=== PATIENT | female | born 1950 | race Caucasian/White ===

== ENCOUNTER 2016-09-30 12:40 | Inpatient (IN) | payer MEDICARE ==
[~2016-09-30] VITALS: Ht 168.9 cm; Wt 120.4 kg
[~2016-09-30 12:40] MED LIST changes: -BLOOD GLUCOSE T1 TES; -GETGO ROLLING W1 MI1; -LEVA750T PO; -OXYGENTANK NAS.CANULA; -PERC5TAB12 PO; -PRED10 PO; -PRED20 PO; -PRED5TAB PO; -XARE15TA PO; -XARE20TA PO; -ZOFR4TAB PO
--- NOTE | 2016-10-01 17:49 | MH ---
cc: ELDER WONG MD, ROHIT K. M.D. DATE OF ADMISSION 10/02/2016 ADMISSION DIAGNOSIS Cervical spinal stenosis. HISTORY OF PRESENT ILLNESS This is a 66-year-old female who presented to us for evaluation of neck pain radiating into the right shoulder for the last 6 months. She states she has numbness and pain in the right upper extremity on the inside of her arm and forearm. She denies any left upper extremity radiating pain. She has unsteady gait she states for years but worse over the last 6 months. She states she falls frequently from being unsteady. She has urinary frequency at night and has to urinate every hour. She has not had any physical therapy or pain management. She states her right arm is weaker than the left but both are weak. She has a history of anterior C4-C6 diskectomy with fusion and plate placement about 15 years ago. PAST MEDICAL HISTORY Significant for: 1. Diabetes mellitus. 2. Hypertension. 3. Gastroesophageal reflux disease. 4. Chronic obstructive pulmonary disease. 5. Ovarian cancer. PAST SURGICAL HISTORY 1. She had tonsillectomy in . 2. Abdominal exploration surgery 1965. 3. Two section in 1974, 1976. 4. Cholecystectomy 1975. 5. Benign tumor removal from the left side of her back/arm in 1985. 6. Carpal tunnel surgery in bilaterally. 7. Hysterectomy . 8. Ovarian cancer tumor removal in 2011. 9. A port in her upper chest in 2011. 10. Cervical fusion. CURRENT MEDICATIONS 1. She takes metformin 1000 mg b.i.d. 2. Ibuprofen 800 milligrams, this was placed on hold prior to surgical intervention. 3. Lisinopril 20 mg b.i.d. 4. Amlodipine 10 mg daily. 5. Fluoxetine 40 milligrams daily. 6. Isosorbide ER 60 mg daily. 7. Carvedilol 12.5 mg b.i.d. 8. Nexium 20 mg daily. 9. Lantus insulin 90 units in the morning, 70 units in the afternoon. 10. Humalog sliding scale insulin. 11. Ferrous sulfate 325 mg b.i.d. 12. Ventolin inhaler two puffs every four hours. 13. Ipratropium bromide 0.5 mg. 14. Albuterol sulfate 3 mg four times a day. 15. Potassium 550 mg daily. 16. Magnesium 250 mg daily. 17. Calcium 5 mg with Vitamin D daily. ALLERGIES NO KNOWN DRUG ALLERGIES. 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 She has two children. She lives alone. She does not smoke. She quit in 2006. She does not drink alcohol. REVIEW OF SYSTEMS CONSTITUTIONAL: She denies any fever or chills currently. EARS, NOSE, AND THROAT: No pharyngitis or exudate or bloody drainage from her nose. CARDIOVASCULAR: She denies any current chest pain. RESPIRATORY: Positive for shortness of breath related to her chronic obstructive pulmonary disease. GENITOURINARY: No urgency or dysuria. MUSCULOSKELETAL: Positive for neck and low back pain. SKIN: No rashes or pruritus. NEUROLOGIC: No difficulty with speech. Positive for some difficulty with memory. GASTROINTESTINAL: Positive for diarrhea and constipation. PSYCHIATRIC: Positive for anxiety and depression symptoms. FAMILY HISTORY Her mother is at 80 years old. Had heart and lung failure. Her father at 68 years old, had lung cancer. Her sister is at 42, had colon and ovarian cancer. Her other sister is at 70 from lung cancer. She has another sister who is at 65 from colon and ovarian cancer. She has a brother who is in his 70s and another brother who is in his 70s also. PHYSICAL EXAMINATION HEAD: Normocephalic, atraumatic. NECK: Supple. No carotid bruits heard on auscultation. LUNGS: Clear to auscultation bilaterally. HEART: Regular rate and rhythm. Normal S1-S2. ABDOMEN: Soft and nontender. Positive bowel sounds. SKIN: Reveals no cyanosis or erythema. MUSCULOSKELETAL: She has 3/5 strength in the upper extremities. She has a spastic gait and ambulates with a cane. NEUROLOGIC: She is awake and alert, oriented. Cranial nerves II through XII appear grossly intact. Speech is fluent. Comprehension is good. Sensation is intact in the extremities but she complains of subjective numbness in the right upper extremity. There is no Wan reflexes. Reflexes are very diminished in the lower extremities. IMAGING Data reviewed, reviewed MRI of the cervical spine from July 02, 2016 which reveals a large disk herniation with osteophytes at the C3 / C4 level with spinal cord compression. There is also plate in place from C4-C6 with the spinal canal decompressed. Cervical x-ray from January 08, [address] from C4-C6 with allograft and the interbody fusion at C5-C6 but there is no interbody fusion at C4-C5 with a C4 plate and screws appear to have partially pulled out. IMPRESSION A 65-year-old female with a progressive cervical myelopathy with weakness and unsteadiness in her gait as well as neck pain with radiation to the shoulders from a C3-C4 disk osteophyte complex with spinal cord compression. She also has remote history of C4 to C6 anterior cervical fusion with plate placement and it appears the fusion has failed at the C4 / C5 level with loosening of the C4 screws. PLAN We have discussed the treatment options and we have recommended anterior C3-C4 microdiskectomy and fusion with removal of the C4-C6 plate along with exploration of her fusion and possible refusion at the C4-C5 level. The procedure as well as the risks, benefit, alternative and recovery time were explained in great detail with the patient. We have discussed the risks involved with surgery which include but not limited to bleeding, infection, muscle weakness, voice hoarseness, difficulty swallowing, heart attack, stroke, blood clots, non fusion, scar tissue formation, vascular injury with associated stroke, droopy eye as well as cardiopulmonary complications given her coronary artery disease as well as COPD and diabetes. We have obtained cardiac and medical clearance and she is requesting that we proceed with surgical intervention understanding the procedure as well as risks involved and she was therefore scheduled accordingly. DICTATED BY: Jay Spicer PA-C MD DANI Tolentino/BILLIE /4:52 PM /5:16 PM
[2016-10-02] MEDS ORDERED: SODIUM CHLORID 0.9% 500 ML IV PRN (06:15)
[2016-10-02] MEDS ORDERED: POVIDONE IODINE 5% (ANTISEPSIS KIT) 4 APPLICATIONS EACH NARE PRN (06:15)
[2016-10-02] MEDS ORDERED: LACTATED RINGER'S 1000 ML IV PRN (06:15)
[2016-10-02] MEDS ORDERED: INSULIN HUMAN REGULAR 1,000 UNITS/10 ML VIAL SQ PRN (06:15)
[2016-10-02] MEDS ORDERED: CHLORHEXIDINE GLUCONATE 2 % 1 PACK (2 CLOTHS) TOPICAL PRN (06:15)
[2016-10-02] MEDS ORDERED: VANCOMYCIN HCL 1000 MG ON-CALL/NS 250 ML IV SCH ×2 (06:15)
[2016-10-02] MEDS ORDERED: METOPROLOL TARTRATE 25 MG TAB PO PRN (06:15)
[2016-10-02] MEDS ORDERED: SODIUM CHLOR 0.9% 1000 ML INJ 1,000 ML IV SCH (06:15)
[2016-10-02 07:03] VITALS: BP 124/60; PULSE 66; RESP 22; TEMP 98; O2SAT 98
[2016-10-02] MEDS ORDERED: THROMBIN (TOPICAL) 5,000 UNIT VIAL ONE ×2 (07:32→11:21)
[2016-10-02] MEDS ORDERED: VANCOMYCIN HCL 1000 MG VIAL ONE (07:32)
[2016-10-02] MEDS ORDERED: GELFOAM SIZE 100 ONE ×2 (07:33→11:22)
[2016-10-02] MEDS ORDERED: BUPIVACAINE/EPINEPHRINE 0.5% PF 30 ML VIAL ONE (07:33)
[2016-10-02] MEDS ORDERED: RESP: ALBUTEROL 2.5 MG/3 ML NEB (SCH) ONE (08:07)
[2016-10-02] MEDS ORDERED: DEXAMETHASONE SOD PHOS 4 MG/ML VIAL ONE (08:19)
[2016-10-02] MEDS ORDERED: ACETAMINOPHEN 1000 MG/100 ML VIAL IV ONE (08:19)
[2016-10-02] MEDS ORDERED: MIDAZOLAM HCL 2 MG/2 ML VIAL ONE (08:19)
[2016-10-02] MEDS ORDERED: FAMOTIDINE 20 MG/2 ML VIAL ONE (08:19)
[2016-10-02] MEDS ORDERED: SODIUM CHLORID 0.9% 500 ML INJ 500 ML IV ONE (12:00)
[2016-10-02] MEDS ORDERED: LACTATED RINGER'S 1000 ML INJ 3,000 ML IV ONE (12:00)
[2016-10-02] MEDS ORDERED: ePHEDrine/NS 25 MG/5 ML SYR IV ONE (12:00)
[2016-10-02] MEDS ORDERED: PROPOFOL 200 MG/20 ML AMP IV ONE (12:00)
[2016-10-02] MEDS ORDERED: ONDANSETRON HCL 4 MG/2 ML VIAL IV PUSH ONE (12:00)
[2016-10-02] MEDS ORDERED: NEOSTIGMINE 3 MG/3 ML SYR IV ONE (12:00)
[2016-10-02] MEDS ORDERED: ALBUTEROL SULFATE 90 MCG/ACT HFA 18 GM INHALER INH PRN (12:30)
[2016-10-02] MEDS ORDERED: NS + KCL 20 MEQ INJ 1,000 ML IV SCH (12:31)
[2016-10-02] MEDS ORDERED: fentaNYL CITRATE 250 MCG/5 ML AMP ONE ×2 (12:36→12:37)
[2016-10-02] MEDS ORDERED: cloNIDine HCL 0.1 MG TAB PO PRN (12:45)
[2016-10-02] MEDS ORDERED: MAGNESIUM HYDROXIDE SUSP 30 ML CUP PO PRN (12:45)
[2016-10-02] MEDS ORDERED: CYCLOBENZAPRINE HCL 10 MG TAB PO PRN (12:45)
[2016-10-02] MEDS ORDERED: PROCHLORPERAZINE INJ 10 MG/2 ML VIAL IV PUSH PRN (12:45)
[2016-10-02] MEDS ORDERED: ALUMINUM/MAGNESIUM/SIMETH 30 ML CUP PO PRN (12:45)
[2016-10-02] MEDS ORDERED: ZOLPIDEM TARTRATE 5 MG TAB PO PRN (12:45)
[2016-10-02] MEDS ORDERED: DEXTROSE 50% IN WATER 50 ML VIAL(D50) IV PUSH PRN (12:45)
[2016-10-02] MEDS ORDERED: MORPHINE SULFATE 4 MG/ML INJ IV PRN (12:45)
[2016-10-02] MEDS ORDERED: ONDANSETRON HCL 4 MG/2 ML VIAL IV PRN (12:45)
[2016-10-02] MEDS ORDERED: diphenhydrAMINE HCL 50 MG/ML VIAL IV PRN (12:45)
[2016-10-02] MEDS ORDERED: NALOXONE HCL 0.4 MG/ML AMP IV PRN (12:45)
[2016-10-02] MEDS ORDERED: ACETAMINOPHEN 325 MG TAB PO PRN (12:45)
[2016-10-02] MEDS ORDERED: ACETAMINOPHEN/HYDROcodone 325 MG/10 MG TAB PO PRN (12:45)
[2016-10-02] MEDS ORDERED: SODIUM CHLORIDE 0.9% FLUSH 10 ML FLUSH IV FLUSH PRN (12:45)
[2016-10-02] MEDS ORDERED: GLUCAGON 1 MG/ML VIAL OTHER PRN (12:45)
[2016-10-02] MEDS ORDERED: MENTHOL LOZENGE BUCCAL PRN (12:45)
--- NOTE | 2016-10-02 12:46 | PD.OP ---
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 endotracheal by Jhony Gibson Surgeon: Alexandre Lares M.D. Welder Fitter Apprentice(s): Yeni Lea Operation and Findings: Following administration of general endotracheal anesthesia with the neck maintained neutral position in a Grayling collar, the patient received a gram of vancomycin and Decadron 10 mg intravenously. Sequential compression devices and a Merino catheter were placed in supine position on a Omar table and all pressure points adequately padded. The head secured in a donut and anterior cervical region then shaved and prepped with Chloraprep and sterilely draped with Ioban along with the usual sterile draping. A transverse skin incision on the left side of the neck was then made after infiltrating the skin with 0.5% Marcaine with epinephrine solution extending down through the platysma. At the anterior border of the sternocleidomastoid further dissection was undertaken developing a plane between the carotid sheath laterally and the trachea esophagus medially. The prevertebral fascia was exposed and dissected out. The medial attachments of the longus colli muscles were detached and a self- retaining retractor used for exposure. The C3-4 disc space was localized with a marking the disc space and using lateral fluoroscopy. The C4 to C6 anterior cervical plate was identified with the right C4 screw partially pulled out. The screws were removed along with the plate and there was solid fusion noted at the C5-6 interbody but no fusion noted at the C4-5 interbody with scar tissue and endplate cartilaginous remnants present. Nubieber distraction screws 14 mm length were placed one in the C3 and one in the C5 body interbody distraction and exposure. There was significant disc degeneration with disc height collapse and anterior osteophytes noted at the C3-4 level and the osteophytes were resected with a Leksell and annulus incised with a 15 blade and further dissection undertaken using microtechnique with microscope magnification. Diskectomy was undertaken with pituitaries and the endplates were also decorticated with curettes and drill bit. And more posteriorly there was disk osteophyte complex compressing the thecal sac along with a significant uncovertebral joint hypertrophy with foraminal stenosis which was decompressed along with removal of the posterior longitudinal ligaments at both levels. The foramen was decompressed bilaterally using a Kerrison's and palpation with a nerve hook, the exiting nerve roots were felt to be free. I also decorticated the endplates at the C4-5 level. The area was then copiously irrigated. I then placed a Peek cage packed with local autograft bone on at the C3-4 interspace and another one at the C4-5 interspace under fluoroscopy guidance. Nubieber distraction pins were removed and the holes plugged with Gelfoam for hemostasis. In order to facilitate the fusion and provide stabilization, a Precision spine cervical plate was then placed with two 14 mm variable angle screws in the C3 body, one in the C4 body, and two 14 mm fixed angle screws in the C5 body. The plate screw locking mechanism was then engaged. AP and lateral fluoroscopy confirmed good placement of the construct and the retractor was then removed. Muscular bleeding points were cauterized with bipolar cautery and Gelfoam was then also used for hemostasis which was removed. The platysma was then approximated using 3-0 Vicryl interrupted stitches and 3-0 Vicryl subcuticular stitch also placed in an interrupted fashion, and final skin closure was with Mastisol and Steri-Strips. Sterile dressing was then applied. The neck immobilized in a Grayling J collar. The patient was then extubated and taken to the recovery room. There are no intraoperative complications and all sponge and needle counts were correct at the end of procedure. Estimated blood loss was about 100 cc. The patient did undergo intraoperative neurologic monitoring which remained stable throughout the surgery. Alexandre Lares MD Oct 02, 2016 12:46
[2016-10-02] MEDS ORDERED: NS + KCL 20 MEQ INJ 1,000 ML ONE (12:57)
[2016-10-02] MEDS ORDERED: IPRATROPIUM BROMIDE 17 MCG/ACT 12.9 GM INHALER INH SCH (13:00)
--- NOTE | 2016-10-02 14:07 | RADRPT ---
EXAM DATE/TIME: 10/02/2016 09:18 [facility] COMPARISON: No previous studies available for comparison. INDICATIONS : Post-op C3-C4-C5 anterior cervical fusion. MEDICAL HISTORY : None. SURGICAL HISTORY : None. ENCOUNTER: Initial ACUITY: 1 day PAIN SCORE: Non-responsive. LOCATION: neck FINDINGS: 3 intraoperative spot images demonstrate anterior fusion hardware C3-C5. CONCLUSION: Intraoperative spot images indicating anterior cervical fusion hardware. Casper Rowland MD on October 02, 2016 at 14:05 Board Certified Radiologist. This report was verified electronically.
--- NOTE | 2016-10-02 14:50 | PD.CONS ---
HPI Service Family Medicine Consult Requested By Dr. Lares Reason for Consult Managing chronic illness Primary Care Physician Rosario Queen MD History of Present Illness Ms. Sewell is a 66 year old female with multiple medical problems, including T2DM, CAD, COPD hypertension, asthma, and anxiety/depression, the family medicine FPTS is being consulted to help manage her chronic illnesses. She is postop day 0 for microdiscectomy and fusion of the C3 through 4 and repeat fusion of C4 through 5. She was evaluated in the PACU following her surgery and reports that she is doing well. Her only complaint was that her mouth was dry. Her neck was in a c-collar and she was declining any pain. Review of Systems ROS Limitations: Clinical Condition (status post surgery) Constitutional: COMPLAINS OF: Fatigue, Weight gain, DENIES: Fever, Weight loss , Dizziness, Change in appetite Endocrine: DENIES: Polydipsia, Polyuria Eyes: DENIES: Blurred vision, Diplopia, Eye pain Ears, nose, mouth, throat: COMPLAINS OF: Hoarseness, DENIES: Tinnitus, Throat pain, Running Nose Respiratory: DENIES: Cough, Wheezing, Sputum production Cardiovascular: DENIES: Chest pain, Syncope Gastrointestinal: DENIES: Abdominal pain, Nausea, Vomiting Musculoskeletal: COMPLAINS OF: Joint pain, Muscle aches, Stiffness, Back pain, Neck pain, DENIES: Joint Swelling Hematologic/lymphatic: DENIES: Bruising Neurologic: DENIES: Abnormal gait, Headache Psychiatric: DENIES: Anxiety, Confusion Past Family Social History Past Medical History - CAD ("several" MIs, stent x 1) - HTN - Hyperlipidemia - 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) - h/o clear cell ovarian cancer (diagnosed 2011, stage 1-C, s/p oophorectomy & chemotherapy) - Depression, anxiety - Osteoarthritis - h/o nephrolithiasis - Chronic anemia - Emphysema/COPD Past Surgical History - CAD ("several" MIs, stent x 1) - HTN - Hyperlipidemia - 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) - h/o clear cell ovarian cancer (diagnosed 2011, stage 1-C, s/p oophorectomy & chemotherapy) - Depression, anxiety - Osteoarthritis - h/o nephrolithiasis - Chronic anemia - Emphysema/COPD Reported Medications Reported Meds & Active Scripts Active Amlodipine (Amlodipine Besylate) 10 Mg Tab 10 Mg PO DAILY Lantus Solostar Pen Inj (Insulin Glargine) 300 Unit/3 Ml Pen 80 Units SQ DIRECTED take 80 units in the morning and 70 units at bedtime Carvedilol 12.5 Mg Tab 12.5 Mg PO BID Humalog Kwikpen Pen Inj (Insulin Lispro (Human) Inj) 300 Unit/3 Ml Pen 1 Units SQ DIRECTED Max dose at bedtime: 0 units; sugar <70 (0) units, sugar 150-199(2)units sugar 200-249 (4)units sugar 250-299 (7)units sugar 300-349 (10)units sugars>349 (12)units Fluoxetine (Fluoxetine HCl) 40 Mg Cap 40 Cap PO DAILY Atrovent HFA 12.9 GM Inh (Ipratropium [place]) 17 Mcg/Act Aer 2 Puff INH QID Duoneb (Ipratropium-Albuterol Neb) 0.5-2.5 Mg/3 Ml Neb 1 Nebule INH Q6HR NEB Walker with Front Wheels (Device) 1 Mis Mis 1 Ea .ROUTE DIRECTED Isosorbide Mononitrate ER (Isosorbide Mononitrate) 60 Mg Tab 60 Mg PO DAILY Reported Ventolin Hfa 18 GM Inh (Albuterol Sulfate) 90 Mcg/Act Aer 1 Puff INH Q4H PRN Ferrous Sulfate 325 Mg Tab 650 Mg PO DAILY Nexium (Esomeprazole DR) 20 Mg Capdr 20 Mg PO DAILY Lisinopril 20 Mg Tab 20 Mg PO BID Metformin (Metformin HCl) 1,000 Mg Tab 1,000 Mg PO BIDPC With meals Allergies: Coded Allergies: No Known Allergies (Verified , 10/02/16) Active Ordered Medications Current Medications Medications (Trade) Dose Ordered Sig/Bruce Route Start Time Stop Time Status Last Admin (NS 1000 ml Inj) 1,000 ml @ 30 mls/hr Q24H IV 10/02/16 06:15 (Ventolin Hfa Inh) 1 puff Q4H PRN INH 10/02/16 12:30 (Norvasc) 10 mg DAILY PO 10/03/16 09:00 (Coreg) 12.5 mg BID PO 10/02/16 21:00 (Ferrous Sulfate) 650 mg DAILY PO 10/03/16 09:00 (PROzac) 40 mg DAILY PO 10/03/16 09:00 (Atrovent Hfa Inh) 2 puff QID INH 10/02/16 13:00 UNV (Imdur) 60 mg DAILY PO 10/03/16 09:00 (Prinivil) 20 mg BID PO 10/02/16 21:00 (Protonix) 40 mg DAILY PO 10/03/16 09:00 (D50w (Vial) Inj) 25 ml UNSCH PRN IV PUSH 10/02/16 12:45 (Glucagon Inj) 1 mg UNSCH PRN OTHER 10/02/16 12:45 (Narcan Inj) 0.4 mg UNSCH PRN IV 10/02/16 12:45 (Benadryl Inj) 25 mg Q6H PRN IV 10/02/16 12:45 Polyethylene Glycol 17 gm 17 gm DAILY PO 10/03/16 09:00 (NS + KCl 20 Meq Inj) 1,000 ml @ 80 mls/hr [id number] IV 10/02/16 12:31 10/02/16 22:30 10/02/16 12:31 (NS Flush) 2 ml UNSCH PRN IV FLUSH 10/02/16 12:45 Sodium Chloride 2 ml 2 ml BID IV FLUSH 10/02/16 21:00 (Ancef Inj/NS Inj) 100 ml @ 200 mls/hr Q8H IV 10/02/16 14:00 10/03/16 06:29 10/02/16 14:00 (Colace) 100 mg BID PO 10/02/16 21:00 (Milk Of Magnesia Liq) 30 ml DAILY PRN PO 10/02/16 12:45 (Mag-Al Plus Susp Liq) 30 ml Q6H PRN PO 10/02/16 12:45 (Zofran Inj) 4 mg Q6H PRN IV 10/02/16 12:45 (Stewart 10-325 Mg) 1 tab Q4H PRN PO 10/02/16 12:45 (Stewart 10-325 Mg) 2 tab Q4H PRN PO 10/02/16 12:45 (Morphine Inj) 2 mg Q2H PRN IV 10/02/16 12:45 (Flexeril) 10 mg Q8H PRN PO 10/02/16 12:45 (Catapres) 0.1 mg Q6H PRN PO 10/02/16 12:45 (Tylenol) 650 mg Q4H PRN PO 10/02/16 12:45 (Clyde Ashlee) 1 lozenge UNSCH PRN BUCCAL 10/02/16 12:45 (Ambien) 5 mg HS PRN PO 10/02/16 12:45 (Compazine Inj) 10 mg Q6H PRN IV PUSH 10/02/16 12:45 Family History - Father: (lung cancer) - Mother: (pulmonary disease), CHF, DM - Sister 1: cervical, thyroid and lung cancer - Sister 2: ovarian and colon cancer - Brothers: lung cancer Social History - Tobacco: former (quit 2006, 2 PPD x 40 years) - EtOH: denies - Recreational drugs: denies - On disability. Physical Exam Vital Signs Vital Signs Date Time Temp Pulse Resp B/P Pulse Ox O2 Delivery O2 Flow Rate FiO2 10/02/16 12:30 98.5 70 20 121/63 93 Simple Mask 8 10/02/16 07:03 98.0 66 22 124/60 98 Physical Exam GENERAL: This is a well-nourished, well-developed patient, in no apparent distress. Neck in a c-collar SKIN: No rashes, ecchymoses or lesions. Cool and dry. HEAD: Atraumatic. Normocephalic. No temporal or scalp tenderness. EYES: Pupils equal round and reactive. Extraocular motions intact. No scleral icterus. No injection or drainage. ENT: Nose without bleeding, purulent drainage or septal hematoma. Throat without erythema, tonsillar hypertrophy or exudate. Uvula midline. Airway patent. NECK: Trachea midline. No JVD or lymphadenopathy. Supple, nontender, no meningeal signs. CARDIOVASCULAR: Regular rate and rhythm without murmurs, gallops, or rubs. RESPIRATORY: Clear to auscultation. Breath sounds equal bilaterally. No wheezes , rales, or rhonchi. GASTROINTESTINAL: Abdomen soft, non-tender, nondistended, obese. No hepato- splenomegaly difficult to confirm due to obesity, or palpable masses. No guarding. MUSCULOSKELETAL: Extremities without clubbing, cyanosis, or edema. No calf tenderness. Negative Homans sign bilaterally. NEUROLOGICAL: Awake and alert to name but not to date or place. Cranial nerves II through XII grossly intact. Motor and sensory grossly within normal limits. Normal speech. Imaging Last Impressions Cervical Spine X-Ray 10/02/16 0000 Signed Impressions: Service Date/Time: September 09:18 - CONCLUSION: Intraoperative spot images indicating anterior cervical fusion hardware. Casper Rowland MD Assessment and Plan Assessment and Plan Ms. Sewell is a 66 year old female with multiple medical problems, including T2DM, CAD, COPD hypertension, asthma, and anxiety/depression. Status post cervical discectomy and fusion. FPTS team consulted to help manage her chronic illnesses. Code Status Full code Discussed Condition With WDW: FPTS Team Problem List: (1) S/P cervical spinal fusion Status: Acute Plan: Deferred to neurosurgery team for management and pain control (2) Diabetes mellitus Status: Chronic Plan: Long-standing history of diabetes. * Accu-Cheks per protocol * Start Levemir 30 units twice a day will adjust dose as needed * High dose insulin sliding scale (3) COPD (chronic obstructive pulmonary disease) Status: Chronic Plan: Long-standing history of COPD * Continue albuterol * Continue Atrovent * Continue duo nebs (4) Hypertension Status: Chronic Plan: Long-standing history of hypertension * Continue home medication of lisinopril * Continue home medication of isosorbide mononitrate * Continue home medication of amlodipine * Continue home medications carvedilol (5) Anxiety and depression Status: Chronic Plan: Long-standing history of anxiety and depression * Continue home medication of fluoxetine Problem Qualifiers (1) Diabetes mellitus: Qualified Code: E11.8 - Type 2 diabetes mellitus with complication, with long- term current use of insulin Kapil Ortiz MD R2 Oct 02, 2016 14:50
[2016-10-02] MEDS: ACETAMINOPHEN/HYDROcodone 325 MG/10 MG TAB PO PRN ×2 (15:53→20:21)
[2016-10-02 16:00] VITALS: BP 157/75; PULSE 85; RESP 19; TEMP 98.7; O2SAT 93
[2016-10-02] MEDS ORDERED: RESP: ALBUTEROL 2.5 MG/3 ML NEB (PRN) NEB (16:00)
[2016-10-02] MEDS: INSULIN NovoLIN REGULAR SUPPLEMENTAL SCALE SQ SCH ×2 (17:53→21:00)
[2016-10-02 20:00] VITALS: BP 151/69; PULSE 78; RESP 16; TEMP 97.7; O2SAT 97
[2016-10-02] MEDS: RESP: ALBUTEROL 2.5 MG/IPRATROPIUM 0.5 MG NEB (SCH) INH (20:11)
[2016-10-02] MEDS: CARVEDILOL 12.5 MG TAB PO SCH (20:21)
[2016-10-02] MEDS: LISINOPRIL 20 MG TAB PO SCH (20:21)
[2016-10-02] MEDS: DOCUSATE SODIUM 100 MG CAP PO SCH (20:21)
[2016-10-02] MEDS: SODIUM CHLORIDE 0.9% FLUSH 10 ML FLUSH IV FLUSH SCH (20:21)
[2016-10-02] MEDS: INSULIN DETEMIR 100 UNITS/ML VIAL SQ SCH (23:58)
[2016-10-03] VITALS: BP 142/74; PULSE 69; RESP 16; TEMP 97.9; O2SAT 93
[2016-10-03] MEDS: ACETAMINOPHEN/HYDROcodone 325 MG/10 MG TAB PO PRN ×3 (00:07→12:49)
[2016-10-03 04:00] VITALS: BP 167/79; PULSE 72; RESP 17; TEMP 96.8; O2SAT 93
[2016-10-03] MEDS: INSULIN NovoLIN REGULAR SUPPLEMENTAL SCALE SQ SCH ×2 (07:00→11:00)
[2016-10-03] MEDS: RESP: ALBUTEROL 2.5 MG/IPRATROPIUM 0.5 MG NEB (SCH) INH (07:44)
[2016-10-03 08:00] VITALS: BP 178/78; PULSE 68; RESP 18; TEMP 97.3; O2SAT 93
[2016-10-03] MEDS ORDERED: FERROUS SULFATE 325 MG (65 MG ELEMENTAL IRON) TAB PO SCH (09:00)
[2016-10-03] MEDS ORDERED: ISOSORBIDE MONONITRATE 60 MG TAB PO SCH (09:00)
[2016-10-03] MEDS ORDERED: POLYETHYLENE GLYCOL 17 GM PKG PO SCH (09:00)
[2016-10-03] MEDS ORDERED: FLUoxetine HCL 20 MG CAP PO SCH (09:00)
[2016-10-03] MEDS ORDERED: PANTOPRAZOLE SOD 40 MG DELAYED RELEASE TAB PO SCH (09:00)
[2016-10-03] MEDS: CARVEDILOL 12.5 MG TAB PO SCH (09:06)
[2016-10-03] MEDS: INSULIN DETEMIR 100 UNITS/ML VIAL SQ SCH (09:06)
[2016-10-03] MEDS: DOCUSATE SODIUM 100 MG CAP PO SCH (09:06)
[2016-10-03] MEDS: LISINOPRIL 20 MG TAB PO SCH (09:06)
[2016-10-03] MEDS: SODIUM CHLORIDE 0.9% FLUSH 10 ML FLUSH IV FLUSH SCH (09:09)
--- NOTE | 2016-10-03 10:20 | HHI.NSPN ---
History Chief Complaint: Nausea s/p ACF Interval History Pt underwent a C3/C4 and C4/C5 anterior cervical fusion with removal of C4-C6 cervical plate. She complains of mild incisional discomfort. No radiculopathy or paresthesias in UEs. She has nausea. Review of Systems General: Negative for: fever, chills, insomnia Respiratory: Negative for: shortness of breath, cough, sputum Cardiovascular: Negative for: chest pain Gastrointestinal: Negative for: nausea, vomitting, diarrhea, constipation Exam Results Vital Signs Date Time Temp Pulse Resp B/P Pulse Ox O2 Delivery O2 Flow Rate FiO2 10/03/16 08:00 97.3 68 18 178/78 93 10/02/16 14:39 Room Air 10/02/16 12:45 8 Intake and Output 10/02/16 10/02/16 10/03/16 08:00 16:00 00:00 Intake Total 3400 ml 240 ml Output Total 475 ml 1000 ml Balance 2925 ml -760 ml Physical Examination Resp: CTA bilaterally Heart: NSR no murmurs Abd: Soft positive bs Skin: Incision clean and dry. New bandage placed. Muscle: Moves all 4 extremities well. [place] cervical collar in place. Neuro: Pt awake and alert. Follows commands well. Speech clear and appropriate. Lab, Micro, Other Results Last Impressions Cervical Spine X-Ray 10/02/16 0000 Signed Impressions: Service Date/Time: September 09:18 - CONCLUSION: Intraoperative spot images indicating anterior cervical fusion hardware. Casper Rowland MD 10/02/16 10/02/16 10/03/16 15:00 23:00 07:00 Intake Total 3400 ml 240 ml 240 ml Output Total 475 ml 1000 ml 600 ml Balance 2925 ml -760 ml -360 ml Intake Oral 240 ml 240 ml IV Total 400 ml Other 3000 ml Output Urine Total 375 ml 1000 ml 600 ml Estimated Blood Loss 100 ml # Bowel Movements 0 0 Medical Decision Making Impression and Plan A: 66 y/o FM s/p C3/C4 and C4/C5 anterior cervical fusion with removal of C4- C6 plate. P: Discharge pt home Follow up as directed. Jay Spicer Oct 03, 2016 10:20
[2016-10-03] MEDS ORDERED: ZOFR4TAB PO (10:27)
[2016-10-03] MEDS ORDERED: PERC5TAB12 PO (10:27)
--- NOTE | 2016-10-03 10:35 | PD.CONS ---
HPI Service Family Medicine Consult Requested By Neurosurgery Reason for Consult Medical Management Primary Care Physician Lauren Christensen MD History of Present Illness Ms. Sewell is a 66 year old female with multiple medical problems, including T2DM, CAD, COPD hypertension, asthma, and anxiety/depression, the family medicine [facility] is being consulted to help manage her chronic illnesses. She is postop day 1 for microdiscectomy and fusion of the C3 through 4 and repeat fusion of C4 through 5. She was evaluated originally in the PACU following her surgery and reported that she is doing well. Her only complaint was that her mouth was dry. Her neck was in a c-collar and she was denying any pain. This am she reports that her pain down her arms bilaterally is basically gone and she feels much better. She has her cervical collar in place and expects to go home today after eval by surgery. She has help at home and was feeding herself this am. She has her chronic conditions that she states are not having any acute exacerbations this am. Review of Systems Other ROS Limitations: Clinical Condition (status post surgery) Constitutional: COMPLAINS OF: Fatigue, Weight gain, DENIES: Fever, Weight loss , Dizziness, Change in appetite Endocrine: DENIES: Polydipsia, Polyuria Eyes: DENIES: Blurred vision, Diplopia, Eye pain Ears, nose, mouth, throat: COMPLAINS OF: Hoarseness, DENIES: Tinnitus, Throat pain, Running Nose Respiratory: DENIES: Cough, Wheezing, Sputum production Cardiovascular: DENIES: Chest pain, Syncope Gastrointestinal: DENIES: Abdominal pain, Nausea, Vomiting Musculoskeletal: COMPLAINS OF: Joint pain, Muscle aches, Stiffness, Back pain, Neck pain, DENIES: Joint Swelling Hematologic/lymphatic: DENIES: Bruising Neurologic: DENIES: Abnormal gait, Headache Psychiatric: DENIES: Anxiety, Confusion Past Family Social History Past Medical History - CAD ("several" MIs, stent x 1) - HTN - Hyperlipidemia - 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) - h/o clear cell ovarian cancer (diagnosed 2011, stage 1-C, s/p oophorectomy & chemotherapy), still has port right chest - Depression, anxiety - Osteoarthritis - h/o nephrolithiasis - Chronic anemia - Emphysema/COPD Past Surgical History tonsils as child abdominal exploration 1960s 2 c sections cholecystectomy carpal tunnel hysterectomy removal ovarian cancer 2012 port 2012 cervical fusion in past and currently Allergies: Coded Allergies: No Known Allergies (Verified , 10/02/16) Family History - Father: (lung cancer) - Mother: (pulmonary disease), CHF, DM - Sister 1: cervical, thyroid and lung cancer - Sister 2: ovarian and colon cancer - Brothers: lung cancer Social History - Tobacco: former (quit 2006, 2 PPD x 40 years) - EtOH: denies - Recreational drugs: denies - On disability. Physical Exam Vital Signs Vital Signs Date Time Temp Pulse Resp B/P Pulse Ox O2 Delivery O2 Flow Rate FiO2 10/03/16 08:00 97.3 68 18 178/78 93 10/03/16 04:00 96.8 72 17 167/79 93 10/03/16 00:00 97.9 69 16 142/74 93 10/02/16 20:00 97.7 78 16 151/69 97 10/02/16 16:00 98.7 85 19 157/75 93 10/02/16 14:39 98.5 92 20 140/69 95 Room Air 10/02/16 14:30 92 20 140/69 95 Room Air 10/02/16 14:15 92 20 143/73 94 Room Air 10/02/16 14:00 73 20 146/72 95 Room Air 10/02/16 13:45 68 20 140/60 94 Room Air 10/02/16 13:30 68 20 137/65 94 Room Air 10/02/16 13:15 68 20 144/68 96 Room Air 10/02/16 13:00 70 20 129/78 94 Room Air 10/02/16 12:45 69 20 120/63 92 Simple Mask 8 10/02/16 12:30 98.5 70 20 121/63 93 Simple Mask 8 Physical Exam GENERAL: This is a well-nourished, well-developed patient, in no apparent distress. Neck in a c-collar SKIN: No rashes, ecchymoses or lesions. Cool and dry. HEAD: Atraumatic. Normocephalic. No temporal or scalp tenderness. EYES: Pupils equal round and reactive. Extraocular motions intact. No scleral icterus. No injection or drainage. ENT: Nose without bleeding, purulent drainage or septal hematoma. Throat without erythema, tonsillar hypertrophy or exudate. Uvula midline. Airway patent. NECK:in collar part visible appears normal CARDIOVASCULAR: Regular rate and rhythm without murmurs, gallops, or rubs. RESPIRATORY: Clear to auscultation. Breath sounds equal bilaterally. No wheezes , rales, basilar bilateral rhonchi GASTROINTESTINAL: Abdomen soft, non-tender, nondistended, obese. No hepato- splenomegaly difficult to confirm due to obesity, or palpable masses. No guarding. MUSCULOSKELETAL: Extremities without clubbing, cyanosis, or edema. No calf tenderness. Negative Homans sign bilaterally. NEUROLOGICAL: Awake and alert to name but not to date or place. Cranial nerves II through XII grossly intact. Motor and sensory grossly within normal limits. Normal speech. Imaging Last Impressions Cervical Spine X-Ray 10/02/16 0000 Signed Impressions: Service Date/Time: September 09:18 - CONCLUSION: Intraoperative spot images indicating anterior cervical fusion hardware. Casper Rowland MD Assessment and Plan Assessment and Plan Ms. Sewell is a 66 year old female with multiple medical problems, including T2DM, CAD, COPD hypertension, asthma, and anxiety/depression. Status post cervical discectomy and fusion. [facility] team consulted to help manage her chronic illnesses. Problem List: (1) S/P cervical spinal fusion Status: Acute Plan: Deferred to neurosurgery team for management and pain control (2) Diabetes mellitus Status: Chronic Plan: Long-standing history of diabetes. * Accu-Cheks per protocol * Start Levemir 30 units twice a day will adjust dose as needed * High dose insulin sliding scale (3) COPD (chronic obstructive pulmonary disease) Status: Chronic Plan: Long-standing history of COPD * Continue albuterol * Continue Atrovent * Continue duo nebs * has incentive spirometer at bedside and encouraged to use this (4) Hypertension Status: Chronic Plan: Long-standing history of hypertension * Continue home medication of lisinopril * Continue home medication of isosorbide mononitrate * Continue home medication of amlodipine * Continue home medications carvedilol (5) Anxiety and depression Status: Chronic Plan: Long-standing history of anxiety and depression * Continue home medication of fluoxetine Problem Qualifiers (1) Diabetes mellitus: Qualified Code: E11.8 - Type 2 diabetes mellitus with complication, with long- term current use of insulin (2) COPD (chronic obstructive pulmonary disease): Qualified Code: J44.9 - Chronic obstructive pulmonary disease, unspecified COPD type (3) Hypertension: Qualified Code: I10 - Essential hypertension Elinor Rodriguez MD Oct 03, 2016 10:35
[2016-10-03 12:00] VITALS: BP 109/53; PULSE 67; RESP 18; TEMP 98.4; O2SAT 93
[2016-10-03] MEDS ORDERED: WALKER WHEELS/F1 MIS (12:33)
[2016-12-03] MEDS ORDERED: XARE20TA PO (09:16)
[2016-12-03] MEDS ORDERED: BLOOD GLUCOSE T1 TES (09:24)
[2016-12-08] MEDS ORDERED: OXYGENTANK NAS.CANULA (11:04)
[2016-12-11] MEDS ORDERED: OXYGENTANK NAS.CANULA (12:09)
[2016-12-15] MEDS ORDERED: NEXI20CA PO (10:45)
== END 2016-10-03 15:26 | disposition home or self-care (01) | DRG 472 ==
LOC: HSDI 10-02 05:47 → N06B 10-02 14:51
PROVIDERS: ADMIT Neurological Surgery; ATTEND Neurological Surgery
PROC: 0RT30ZZ Resection of Cervical Vertebral Disc, Open Approach (ICD-10-PCS; 2016-10-02)
PROC: 0RG2070 Fusion of 2 or more Cervical Vertebral Joints with Autologous Tissue Substitute, Anterior Approach, Anterior Column, Open Approach (ICD-10-PCS; 2016-10-02)
PROC: 0RP104Z Removal of Internal Fixation Device from Cervical Vertebral Joint, Open Approach (ICD-10-PCS; 2016-10-02)
PROC: 0RG20A0 Fusion of 2 or more Cervical Vertebral Joints with Interbody Fusion Device, Anterior Approach, Anterior Column, Open Approach (ICD-10-PCS; principal; 2016-10-02 08:44)
DX: M50.01 Cervical disc disorder with myelopathy, high cervical region (principal); M96.0 Pseudarthrosis after fusion or arthrodesis; J44.9 Chronic obstructive pulmonary disease, unspecified; E11.319 Type 2 diabetes mellitus with unspecified diabetic retinopathy without macular edema; M48.02 Spinal stenosis, cervical region; I10 Essential (primary) hypertension; R26.81 Unsteadiness on feet; R35.0 Frequency of micturition; R29.6 Repeated falls; K21.9 Gastro-esophageal reflux disease without esophagitis; I25.10 Atherosclerotic heart disease of native coronary artery without angina pectoris; J45.909 Unspecified asthma, uncomplicated; E78.5 Hyperlipidemia, unspecified; F32.9 Major depressive disorder, single episode, unspecified; F41.9 Anxiety disorder, unspecified; M19.90 Unspecified osteoarthritis, unspecified site; R11.0 Nausea; Z87.442 Personal history of urinary calculi; Z79.4 Long term (current) use of insulin; Z87.891 Personal history of nicotine dependence; Z85.43 Personal history of malignant neoplasm of ovary; Z98.1 Arthrodesis status; Y83.2 Surgical operation with anastomosis, bypass or graft as the cause of abnormal reaction of the patient, or of later complication, without mention of misadventure at the time of the procedure
CPT/HCPCS: 72040; 76000; 82948; 94150; 94640; 94664; C1713; J0131; J0690; J1100; J2250; J2405; J2710; J3010; J3370; J3480; J7040; J7050; J7120; J7613; L0150; L0172

== ENCOUNTER → 2016-09-30 | Outpatient (CLI) | payer MEDICARE ==
[~2016-09-30] MED LIST: AMLO10TA2 PO; BLOOD GLUCOSE T1 TES; CARV12.52 PO; FERR325T PO; FLUO40CA PO; GETGO ROLLING W1 MI1; HUMA100I3 SQ; IPRA17I INH; IPRASOL INH; ISOS60TA PO; LANTINJ SQ; LEVA750T PO; LISI-515 PO; METF1000 PO; NEXI20CA PO; OXYGENTANK NAS.CANULA; PERC5TAB12 PO; PRED10 PO; PRED20 PO; PRED5TAB PO; VENTAER INH; WALKER WHEELS/F1 MIS; XARE15TA PO; XARE20TA PO; ZOFR4TAB PO
== END ==
LOC: CPRE 12:33
PROVIDERS: ATTEND Neurological Surgery
DX: M48.02 Spinal stenosis, cervical region (principal)

== ENCOUNTER 2016-11-07 19:45 | Inpatient (IN) | payer MEDICARE ==
[~2016-11-07] VITALS: Ht 167.6 cm; Wt 114.5 kg
[~2016-11-07 19:45] MED LIST changes: +PERC5TAB12 PO; +ZOFR4TAB PO
[2016-11-07 19:55] VITALS: BP 131/88; PULSE 79; RESP 29; TEMP 98.8; O2SAT 88
[2016-11-07 20:01] VITALS: BP 156/73; PULSE 80; RESP 30; O2SAT 97
[2016-11-07] MEDS: RESP: ALBUTEROL 2.5 MG/3 ML NEB (SCH) INH ×2 (20:05→20:06)
[2016-11-07 20:15] LABS: BLOOD GAS BASE EXCESS -1.2 mmol/L (-2-2); BLOOD GAS CARBOXYHEMOGLOBIN 1.4 % (0-4); BLOOD GAS HCO3 22 mmol/L (22-26); BLOOD GAS METHEMOGLOBIN 0.3 % (0-2); BLOOD GAS O2 HGB SATURATION 94 % (90-100); BLOOD GAS OXYGEN CONTENT 14.6 Vol % (12.0-20.0); BLOOD GAS PCO2 32 mmHg (38-42); BLOOD GAS PO2 70 mmHG (61-120); BLOOD GAS TOTAL HGB 11.1 G/DL (12.0-16.0); CRITICAL VALUE NO; DRAW SITE LT RADIAL; LITER FLOW 1 L/M; NUMBER OF ARTERIAL PUNCTURES 1; OXYGEN DEVICE NASAL CANNULA; STAT YES; TEMP CORR TO 98.6; ULNAR PULSE PRESENT
[2016-11-07 20:17] LABS: BASOPHIL % 0.4 % (0.0-2.0); EOSINOPHIL # 0.3 TH/MM3 (0-0.4); EOSINOPHIL % 2.1 % (0.0-4.0); HEMATOCRIT 33.6 % (35.0-46.0); HEMO FLAGS DIFF FINAL; LYMPHOCYTE # 1.1 TH/MM3 (1.0-4.8); MEAN CORPUSCULAR HEMOGLOBIN 26.8 PG (27.0-34.0); MEAN CORPUSCULAR HGB CONC 32.6 % (32.0-36.0); MONO % 6.8 % (0.0-8.0); NEUT % 82.7 % (16.0-70.0); PLATELET COUNT 287 TH/MM3 (150-450); RED BLOOD COUNT 4.09 MIL/MM3 (4.00-5.30); RED CELL DISTRIBUTION WIDTH 13.9 % (11.6-17.2); WHITE BLOOD COUNT 13.3 TH/MM3 (4.0-11.0)
--- NOTE | 2016-11-07 20:20 | RADRPT ---
EXAM DATE/TIME: 11/07/2016 20:09 [facility] COMPARISON: No previous studies available for comparison. INDICATIONS : Shortness of breath and chest pain. MEDICAL HISTORY : Chronic obstructive pulmonary disease. SURGICAL HISTORY : Stent. Infusaport. ENCOUNTER: Initial ACUITY: 1 day PAIN SCORE: 5/10 LOCATION: Chest, midline. FINDINGS: Mild patchy air space opacities are seen of both lungs, left more so than right and both sides worse than on the prior. No large effusion seen. No pneumothorax. Heart size stable, thin normal limits. There is a right internal jugular Ajvjui-p-Emha catheter again seen with tip in the superior vena cav a. CONCLUSION: Patchy nonspecific airspace opacities, left more than right. Sam Gonzalez MD on November 07, 2016 at 20:18 Board Certified Radiologist. This report was verified electronically.
[2016-11-07 20:26] LABS: APTT (PATIENT) 25.6 SEC (24.3-30.1); PROTHROMBIN TIME - PATIENT 10.7 SEC (9.8-11.6)
--- NOTE | 2016-11-07 20:27 | PD ---
HPI Chief Complaint: Respiratory Symptoms Time Seen by Provider: 20:23 Travel History International Travel<30 days: No Contact w/Intl Traveler<30days: No Traveled to known affect area: No History of Present Illness HPI 66-year-old female that presents to the ED for evaluation of shortness of breath. Per patient she's had chest pain or shortness of breath for the past week. Per patient his been progressively getting worse. She has a history of COPD. Per patient she's been using her breathing treatments with good improvement. She takes no oxygen at home. She recently did had surgery on her neck by Dr. Garnica for chronic neck problems. This happened in September. She states that the chest pains this in the mid chest. Denies any nausea or vomiting. Per patient she's had some cough and fever as well as aches. She has a history of pneumonia in the past. She states that she's been using her inhalers at home with no relief. She has no allergies to medication. No abdominal pain. Per patient her pain is 6 out of 10. She has not taken anything for this. She has not seen anybody for this. No other medical problems. PFSH Past Medical History Arthritis: Yes Asthma: Yes Anxiety: Yes Depression: Yes Cancer: Yes (OVARIAN CA 2011, CHEMO COMPLETED 2012) Cardiac Catheterization: Yes (STENT X1 1999) Cardiovascular Problems: Yes (1 STENT POST HI 20 YEARS AGO) High Cholesterol: Yes Chemotherapy: Yes (2011) Chest Pain: Yes Congestive Heart Failure: Yes COPD: Yes Coronary Artery Disease: Yes Diabetes: Yes Patient Takes Glucophage: Yes Diminished Hearing: No Endocrine: Yes Gastrointestinal Disorders: Yes (GERD) Genitourinary: No Hepatitis: No Hiatal Hernia: No Hypertension: Yes Immune Disorder: Yes (FIBROMYALGIA) Kidney Stones: Yes (BOTH) Musculoskeletal: Yes (ARTHRITIS) Neurologic: Yes (BOTH ARMS WEAK WITH PAIN IN BACK OF NECK) Psychiatric: Yes Reproductive: No Respiratory: Yes (COPD, ASTHMA) Immunizations Current: Yes Myocardial Infarction: Yes Radiation Therapy: No Renal Failure: Yes (ACUTE RENAL FAILURE) Thyroid Disease: No Menopausal: Yes Ovarian Cysts: Yes Past Surgical History Abdominal Surgery: Yes (CHOLECYSTECTOMY, APPENDECTOMY, EX LAP) AICD: No Appendectomy: Yes Body Medical Devices: PORT IN R SIDE OF CHEST, HARDWARE IN NECK, CINDI IN ABD Cardiac Surgery: Yes (1 STENT) Section: Yes (2 PAST) Cholecystectomy: Yes Coronary Stent: Yes Endocrine Surgery: Yes (CADAVIR SURGERY NECK) Gynecologic Surgery: Yes (HYSTERECTOMY, BILAT S+O) Hysterectomy: Yes Joint Replacement: No Neurologic Surgery: Yes (ACDF) Pacemaker: No Tonsillectomy: Yes Other Surgery: Yes (CARPAL TUNENL) Social History Alcohol Use: No Tobacco Use: No Substance Use: No Allergies-Medications (Allergen,Severity, Reaction): Coded Allergies: No Known Allergies (Verified , 10/02/16) Reported Meds & Prescriptions Reported Meds & Active Scripts Active Walker with Front Wheels (Device) 1 Mis Mis 1 Ea .ROUTE DIRECTED Amlodipine (Amlodipine Besylate) 10 Mg Tab 10 Mg PO DAILY Lantus Solostar Pen Inj (Insulin Glargine) 300 Unit/3 Ml Pen 80 Units SQ DIRECTED take 80 units in the morning and 70 units at bedtime Carvedilol 12.5 Mg Tab 12.5 Mg PO BID Humalog Kwikpen Pen Inj (Insulin Lispro (Human) Inj) 300 Unit/3 Ml Pen 1 Units SQ DIRECTED Max dose at bedtime: 0 units; sugar <70 (0) units, sugar 150-199(2)units sugar 200-249 (4)units sugar 250-299 (7)units sugar 300-349 (10)units sugars>349 (12)units Fluoxetine (Fluoxetine HCl) 40 Mg Cap 40 Cap PO DAILY Atrovent HFA 12.9 GM Inh (Ipratropium Barclay) 17 Mcg/Act Aer 2 Puff INH QID Duoneb (Ipratropium-Albuterol Neb) 0.5-2.5 Mg/3 Ml Neb 1 Nebule INH Q6HR NEB Walker with Front Wheels (Device) 1 Mis Mis 1 Ea .ROUTE DIRECTED Isosorbide Mononitrate ER (Isosorbide Mononitrate) 60 Mg Tab 60 Mg PO DAILY Reported Ventolin Hfa 18 GM Inh (Albuterol Sulfate) 90 Mcg/Act Aer 1 Puff INH Q4H PRN Ferrous Sulfate 325 Mg Tab 650 Mg PO DAILY Nexium (Esomeprazole DR) 20 Mg Capdr 20 Mg PO DAILY Lisinopril 20 Mg Tab 20 Mg PO BID Metformin (Metformin HCl) 1,000 Mg Tab 1,000 Mg PO BIDPC With meals Review of Systems Except as stated in HPI: all other systems reviewed are Neg Physical Exam Narrative GENERAL: Well-nourished, well-developed patient in no apparent distress. SKIN: Warm and dry. HEAD: Atraumatic. Normocephalic. EYES: Pupils equal and round reactive to light and accommodation. No scleral icterus. No injection or drainage. ENT: No nasal bleeding or discharge. Mucous membranes pink and moist. TMs are clear with no sign of infection or perforation. No mastoid tenderness. Ear canals are intact bilaterally. No lymphadenopathy. Nostril mucosa is red and moist with clear mucus noted. No sinus tenderness to palpation noted. Tonsils are not enlarged or swollen. No ulvua Deviation. Tongue is midline. NECK: Trachea midline. No JVD. No meningeal signs noted CARDIOVASCULAR: Regular rate and rhythm. No murmurs, S3, S4. RESPIRATORY: No accessory muscle use. Rhonchi heard in the lower lung harden.. Breath sounds equal bilaterally. GASTROINTESTINAL: Abdomen soft, non-tender, nondistended. Hepatic and splenic margins not palpable. MUSCULOSKELETAL: Extremities without clubbing, cyanosis, or edema. No obvious deformities. Full range of motion of the upper and lower extremities bilaterally. 2+ pulses bilaterally. NEUROLOGICAL: Awake and alert. No obvious cranial nerve deficits. Motor grossly within normal limits. Five out of 5 muscle strength in the arms and legs. Normal speech. PSYCHIATRIC: Appropriate mood and affect; insight and judgment normal. Data Data Last Documented VS Vital Signs Date Time Temp Pulse Resp B/P Pulse Ox O2 Delivery O2 Flow Rate FiO2 11/07/16 21:44 84 30 154/73 95 Nasal Cannula 2 Orders Complete Blood Count With Diff (11/07/16 19:51) Comprehensive Metabolic Panel (11/07/16 19:51) Ckmb (Isoenzyme) Profile (11/07/16 19:51) Troponin I (11/07/16 19:51) Prothrombin Time / Inr (Pt) (11/07/16 19:51) Act Partial Throm Time (Ptt) (11/07/16 19:51) Arterial Blood Gas (Abg) (11/07/16 19:51) Lipase (11/07/16 19:51) Urinalysis - C+S If Indicated (11/07/16 19:51) Chest, Single Ap (11/07/16 19:51) Iv Access Insert/Monitor (11/07/16 19:51) Ecg Monitoring (11/07/16 19:51) Oxygen Administration (11/07/16 19:51) Oximetry (11/07/16 19:51) Ct Pulmonary Angiogram (11/07/16 ) Albuterol Neb (Albuterol Neb) (11/07/16 20:00) Blood Culture (11/07/16 19:51) Methylprednisolone So Succ Inj (Solumedr (11/07/16 20:30) B-Type Natriuretic Peptide (11/07/16 20:35) Ceftriaxone Inj (Rocephin Inj) (11/07/16 20:45) Azithromycin Inj (Zithromax Inj) (11/07/16 20:45) Iohexol 350 Inj (Omnipaque 350 Inj) (11/07/16 21:16) Enoxaparin Inj (Lovenox Inj) (11/07/16 22:00) Admit Order (Ed Use Only) (11/07/16 22:06) Labs Laboratory Tests Test 11/07/16 11/07/16 11/07/16 19:50 20:00 20:52 White Blood Count 13.3 TH/MM3 Red Blood Count 4.09 MIL/MM3 Hemoglobin 11.0 GM/DL Hematocrit 33.6 % Mean Corpuscular Volume 82.0 FL Mean Corpuscular Hemoglobin 26.8 PG Mean Corpuscular Hemoglobin 32.6 % Concent Red Cell Distribution Width 13.9 % Platelet Count 287 TH/MM3 Mean Platelet Volume 7.8 FL Neutrophils (%) (Auto) 82.7 % Lymphocytes (%) (Auto) 8.0 % Monocytes (%) (Auto) 6.8 % Eosinophils (%) (Auto) 2.1 % Basophils (%) (Auto) 0.4 % Neutrophils # (Auto) 11.0 TH/MM3 Lymphocytes # (Auto) 1.1 TH/MM3 Monocytes # (Auto) 0.9 TH/MM3 Eosinophils # (Auto) 0.3 TH/MM3 Basophils # (Auto) 0.0 TH/MM3 CBC Comment DIFF FINAL Differential Comment Prothrombin Time 10.7 SEC Prothromb Time International 1.0 RATIO Ratio Activated Partial 25.6 SEC Thromboplast Time Sodium Level 136 MEQ/L Potassium Level 3.3 MEQ/L Chloride Level 101 MEQ/L Carbon Dioxide Level 26.3 MEQ/L Anion Gap 9 MEQ/L Blood Urea Nitrogen 14 MG/DL Creatinine 0.89 MG/DL Estimat Glomerular Filtration 63 ML/MIN Rate Random Glucose 188 MG/DL Calcium Level 9.0 MG/DL Total Bilirubin 0.4 MG/DL Aspartate Amino Transf 14 U/L (AST/SGOT) Alanine Aminotransferase 17 U/L (ALT/SGPT) Alkaline Phosphatase 132 U/L Total Creatine Kinase 64 U/L Troponin I LESS THAN 0.02 NG/ML Total Protein 7.0 GM/DL Albumin 2.9 GM/DL Lipase 57 U/L Blood Gas Puncture Site LT RADIAL Blood Gas Patient Temperature 98.6 Blood Gas HCO3 22 mmol/L Blood Gas Base Excess -1.2 mmol/L Blood Gas Oxygen Saturation 94 % Arterial Blood pH 7.46 Arterial Blood Partial 32 mmHg Pressure CO2 Arterial Blood Partial 70 mmHG Pressure O2 Arterial Blood Oxygen Content 14.6 Vol % Arterial Blood 1.4 % Carboxyhemoglobin Arterial Blood Methemoglobin 0.3 % Blood Gas Hemoglobin 11.1 G/DL Oxygen Delivery Device NASAL CANNULA Blood Gas Liter Flow 1 L/M B-Type Natriuretic Peptide 120 PG/ML MDM Medical Decision Making Medical Screen Exam Complete: Yes Emergency Medical Condition: Yes Medical Record Reviewed: Yes Interpretation(s) CBC Diagram 11/07/16 19:50 BMP Diagram 11/07/16 19:50 LFTs WNL troponin and CKMB negative EKG shows sinus rhythm with no sign of acute ischemia or arrhythmia. Read by me and attending. Last Impressions Chest X-Ray 11/07/161950 Signed Impressions: Service Date/Time: Monday, November 07, 2016 20:09 - CONCLUSION: Patchy nonspecific airspace opacities, left more than right. Sam Gonzalez MD CT Angiography 11/07/16 0000 Signed Impressions: Service Date/Time: Monday, November 07, 2016 21:20 - CONCLUSION: 1. Small left lower lobe pulmonary embolus. 2. Widespread airspace disease, nonspecific. 3. Coronary artery calcification. 4. 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 Sam Gonzalez MD Course within normal limits. Differential Diagnosis Chest pain versus COPD versus pneumonia versus respiratory distress versus PE Narrative Course 66-year-old female that presents to the ED for evaluation of chest pain or shortness of breath for one week. Patient was properly examined and was found to have signs and symptoms concerning for possible infectious etiology versus pulmonary embolism secondary to her risk factors. Recommendation this time is for labs and imaging. Patient satting in the high 80s without oxygen. With oxygen she sats on the mid 90s. Patient was given breathing treatments here. Labs and imaging showed possible pneumonia as well as PE. Case was discussed in my attending who agrees with admission. My attending spoke with Dr. Garnica to see if patient could be anticoagulated due to recent neck surgery and he stated that we could start patient on Lovenox. This was discussed with the patient who agrees with plan. Residents were contacted. Residents agreed to admission. Diagnosis Primary Impression: Pneumonia Qualified Code: J18.9 - Pneumonia of both lungs due to infectious organism, unspecified part of lung Additional Impression: PE (pulmonary thromboembolism) Admitting Information Admitting Physician Requests: Admit Yayo Olmedo November 07, 2016 20:27
[2016-11-07] MEDS ORDERED: methylPREDNISolone SOD SUCC 125 MG/2 ML VIAL IV PUSH ONE (20:30)
[2016-11-07 20:40] LABS: ANION GAP 9 MEQ/L (5-15)
[2016-11-07 20:41] LABS: ALKALINE PHOSPHATASE 132 U/L (45-117); ALT (GPT) 17 U/L (10-53); AST (GOT) 14 U/L (15-37); BICARBONATE 26.3 MEQ/L (21.0-32.0); BLOOD UREA NITROGEN 14 MG/DL (7-18); CHLORIDE 101 MEQ/L (98-107); GLOMERULAR FILTRATION RATE 63 ML/MIN (>89); POTASSIUM 3.3 MEQ/L (3.5-5.1); SODIUM (NA) 136 MEQ/L (136-145); TOTAL BILIRUBIN ADULT 0.4 MG/DL (0.2-1.0)
[2016-11-07] MEDS ORDERED: cefTRIAXone INJ 1,000 MG in SODIUM CHLORIDE 0.9% INJ 100 ML IV ONE (20:45)
[2016-11-07] MEDS ORDERED: AZITHROMYCIN INJ 500 MG in SODIUM CHLOR 0.9% 250 ML INJ 250 ML IV ONE (20:45)
[2016-11-07 21:04] LABS: CREATINE KINASE 64 U/L (26-192)
[2016-11-07] MEDS ORDERED: IOHEXOL 350 MG/ML 10 ML VIAL (for RAD DIAG) IV ONE (21:16)
--- NOTE | 2016-11-07 21:37 | RADRPT ---
EXAM DATE/TIME: 11/07/2016 21:20 [facility] COMPARISON: CT PULMONARY ANGIOGRAM, November 01, 2015, 19:21. INDICATIONS : Shortness of breath and cough; rule out pulmonary embolus. IV CONTRAST: 75 cc Omnipaque 350 (iohexol) IV RADIATION DOSE: 25.52 CTDIvol (mGy) MEDICAL HISTORY : Hypertension. Congestive heart failure. Gastroesophageal reflux disease.Renal failure, Diabetes, Ovar leticia cancer SURGICAL HISTORY : Appendectomy. Cholecystectomy.Hysterectomy. ENCOUNTER: Initial ACUITY: 1 week PAIN SCALE: 3/10 LOCATION: chest TECHNIQUE: Volumetric scanning of the chest was performed using a pulmonary embolism protocol MIP images were re constructed. Using automated exposure control and adjustment of the mA and/or kV according to patien t size, radiation dose was kept as low as reasonably achievable to obtain optimal diagnostic quality images. FINDINGS: Small pulmonary embolus involvement seen left lower lobe, for example series 602 image 80. No other p ulmonary embolus demonstrated. No evidence of right ventricular strain. Widespread alveolar opacities are seen of both lungs, left worse than right. All segments of all lobes are involved. Findings are superimposed on mild, chronic interstitial lung disease. Coronary artery calcification present. There is a retroesophageal right subclavian artery. CONCLUSION: 1. Small left lower lobe pulmonary embolus. 2. Widespread airspace disease, nonspecific. 3. Coronary artery calcification. 4. 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 Sam Gonzalez MD on November 07, 2016 at 21:31 Board Certified Radiologist. This report was verified electronically.
[2016-11-07 21:44] VITALS: BP 154/73; PULSE 84; RESP 30; TEMP 95; O2SAT 95
[2016-11-07] MEDS ORDERED: ENOXAPARIN SODIUM 120 MG/0.8 ML SYRINGE SQ ONE (22:00)
--- NOTE | 2016-11-07 22:02 | PD ---
Data Data Last Documented VS Vital Signs Date Time Temp Pulse Resp B/P Pulse Ox O2 Delivery O2 Flow Rate FiO2 11/07/16 21:44 95.0 84 30 154/73 Nasal Cannula 2 11/07/16 20:01 97 Orders Complete Blood Count With Diff (11/07/16 19:51) Comprehensive Metabolic Panel (11/07/16 19:51) Ckmb (Isoenzyme) Profile (11/07/16 19:51) Troponin I (11/07/16 19:51) Prothrombin Time / Inr (Pt) (11/07/16 19:51) Act Partial Throm Time (Ptt) (11/07/16 19:51) Arterial Blood Gas (Abg) (11/07/16 19:51) Lipase (11/07/16 19:51) Urinalysis - C+S If Indicated (11/07/16 19:51) Chest, Single Ap (11/07/16 19:51) Iv Access Insert/Monitor (11/07/16 19:51) Ecg Monitoring (11/07/16 19:51) Oxygen Administration (11/07/16 19:51) Oximetry (11/07/16 19:51) Ct Pulmonary Angiogram (11/07/16 ) Albuterol Neb (Albuterol Neb) (11/07/16 20:00) Blood Culture (11/07/16 19:51) Methylprednisolone So Succ Inj (Solumedr (11/07/16 20:30) B-Type Natriuretic Peptide (11/07/16 20:35) Ceftriaxone Inj (Rocephin Inj) (11/07/16 20:45) Azithromycin Inj (Zithromax Inj) (11/07/16 20:45) Iohexol 350 Inj (Omnipaque 350 Inj) (11/07/16 21:16) Enoxaparin Inj (Lovenox Inj) (11/07/16 22:00) Labs Laboratory Tests Test 11/07/16 11/07/16 11/07/16 19:50 20:00 20:52 White Blood Count 13.3 TH/MM3 Red Blood Count 4.09 MIL/MM3 Hemoglobin 11.0 GM/DL Hematocrit 33.6 % Mean Corpuscular Volume 82.0 FL Mean Corpuscular Hemoglobin 26.8 PG Mean Corpuscular Hemoglobin 32.6 % Concent Red Cell Distribution Width 13.9 % Platelet Count 287 TH/MM3 Mean Platelet Volume 7.8 FL Neutrophils (%) (Auto) 82.7 % Lymphocytes (%) (Auto) 8.0 % Monocytes (%) (Auto) 6.8 % Eosinophils (%) (Auto) 2.1 % Basophils (%) (Auto) 0.4 % Neutrophils # (Auto) 11.0 TH/MM3 Lymphocytes # (Auto) 1.1 TH/MM3 Monocytes # (Auto) 0.9 TH/MM3 Eosinophils # (Auto) 0.3 TH/MM3 Basophils # (Auto) 0.0 TH/MM3 CBC Comment DIFF FINAL Differential Comment Prothrombin Time 10.7 SEC Prothromb Time International 1.0 RATIO Ratio Activated Partial 25.6 SEC Thromboplast Time Sodium Level 136 MEQ/L Potassium Level 3.3 MEQ/L Chloride Level 101 MEQ/L Carbon Dioxide Level 26.3 MEQ/L Anion Gap 9 MEQ/L Blood Urea Nitrogen 14 MG/DL Creatinine 0.89 MG/DL Estimat Glomerular Filtration 63 ML/MIN Rate Random Glucose 188 MG/DL Calcium Level 9.0 MG/DL Total Bilirubin 0.4 MG/DL Aspartate Amino Transf 14 U/L (AST/SGOT) Alanine Aminotransferase 17 U/L (ALT/SGPT) Alkaline Phosphatase 132 U/L Total Creatine Kinase 64 U/L Troponin I LESS THAN 0.02 NG/ML Total Protein 7.0 GM/DL Albumin 2.9 GM/DL Lipase 57 U/L Blood Gas Puncture Site LT RADIAL Blood Gas Patient Temperature 98.6 Blood Gas HCO3 22 mmol/L Blood Gas Base Excess -1.2 mmol/L Blood Gas Oxygen Saturation 94 % Arterial Blood pH 7.46 Arterial Blood Partial 32 mmHg Pressure CO2 Arterial Blood Partial 70 mmHG Pressure O2 Arterial Blood Oxygen Content 14.6 Vol % Arterial Blood 1.4 % Carboxyhemoglobin Arterial Blood Methemoglobin 0.3 % Blood Gas Hemoglobin 11.1 G/DL Oxygen Delivery Device NASAL CANNULA Blood Gas Liter Flow 1 L/M B-Type Natriuretic Peptide 120 PG/ML MDM Supervised Visit with AMI: Yes Narrative Course The history, exam, and medical decision-making in the associated midlevel provider note were completed with my assistance. I reviewed and agree with the findings presented. I attest that I had a [id number] encounter with the patient on the same day, and personally performed and documented my assessment and findings in the medical record. *My assessment and Findings: This is a 66-year-old female who has a history of COPD who had an ACDF on October 03 who presents to the emergency department with increasing shortness of breath, productive cough with green and yellow sputum. She was hypoxic and tachypneic on arrival. She was given IV steroids, serial bronchodilator treatments, and chest x-ray demonstrates bilateral infiltrates consistent with pneumonia. She was given ceftriaxone and azithromycin. CT was obtained to evaluate for pulmonary embolism which demonstrated a small pulmonary embolus in the left lower lobe. I spoke to Dr. Garnica who is on-call for neurosurgery who said it was safe to anticoagulate the patient. She was placed on Lovenox and will be admitted for continued pulmonary management. Ashley Noble MD November 07, 2016 22:02
--- NOTE | 2016-11-07 22:48 | HHI.HP ---
HPI Service Family Medicine Primary Care Physician Lauren Christensen MD Admission Diagnosis acute pneumonia, small PE, respiratory distress Diagnoses: International Travel<30 Days: No Contact w/Intl Traveler<30days: No Known Affected Area: No History of Present Illness Ms. 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 Queen with PMH recent cervical fusion, CAD, COPD, HTN who presents with shortness of breath. Patient reports that she has been unable to catch her breath for the past week, and has had gradually respiratory function. Patient states due to the severity of her shortness of breath she has been unable to walk/talk/eat adequately/ambulate to the shower. Patient reports history of COPD and need for chronic use of Albuterol and Ipratropium nebulizer and inhalers at home. Patient states that these generally relieve her shortness of breath but were not effective today, so she sought admission. Patient also reports coughing up green/yellow sputum for ~1 day; she denies coughing up blood. Patient states that she took her temperature and had a fever to 101.1F over the past couple days (ranged from 99 - 101F). Patient also reports increased sweating sweating. Patient also reports chronic abdominal pressure and chest pain; she states that she has been recently evaluated for CAD preoperatively for cervical fusion 10/02 and was told she did not have suggestion of current reversible ischemia. Patient states she has occasional palpitations. Patient reports diarrhea for ~ 1 month. Patient states having black stools but she attributes this to taking iron chronically. Patient states her diarrhea consists of 510 stools daily. Regarding patient's recent cervical fusion 10/[address] Lares, patient states she is scheduled to see Dr. Lares 11/13; she will get XR 11/11. Patient also reports throat pain after surgery. Patient also reports chronic calf pain. Interval: Patient initially w/ O2 sat in high 80's, placed on NC O2 which improved sats. ABG with pH 7.46. Troponin negative, EKG w/ sinus rhythm with no sign of acute ischemia or arrhythmia. CTA revealed PE; patient started on therapeutic Lovenox after clearance by on-call NS Dr. Garnica (per conversation w/ ED). 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 Hensley (Gynecologic Oncology) - Dr. Huitron (Cardiology) but not seeing her anymore - Dr. Casas (Gastroenterology) - Dr. Soto (Podiatry) but only went once - (Ophthalmology) DOUGHNUT ICER: - - 2 miscarriages, both c-sections Health Maintenance: - DEXA: 12/2013 - normal - Colonoscopy: 02/2015 (Dr. Casas) - multiple polyps --> repeat 1 yr. Due for one soon (needs to make an appointment) - Mammogram: 12/2015 - normal. Repeat in 12/2016 - Immunizations: - Influenza: recommended 07/2014 - Pneumococcal: 09/2013 (per patient, Pneumovax?). Recommended Prevnar but patient declined - Shingles-recommended 02/21/16 but patient declined - Tetanus: thinks it's been about 10 years. Will need another one Interventions: - PET scan: 08/2015 - 4 cm renal cyst, no evidence of metastasis - Renal U/S: 07/2015 - 3.8 cm right renal cyst (stable from 2012) - Nuclear stress: 06/2015 - large anterior defect, mild inferior ischemia - PFT: 01/2015 - FVC 70% predicted, FEV1 75% predicted, FEV1/FVC normal Past Surgical History Per EMR - Tonsillectomy () - Exploratory abdominal surgery for persistent emesis - cyst/polyp removed from intestine (1965) - Exploratory surgery for ovarian cyst removal () - C-sections (1974, 1976) - Cholecystectomy (1975) - Surgery on left foot to remove bone chip related to work accident () - Bilateral carpal tunnel surgery () - Hysterectomy & RSO - secondary to menorrhagia (1997) - Cervical spine surgery with cadaver bone graft and steal plate placement ( ) - LSO - secondary to ovarian cancer (2011) Reported Medications lantus 80 am70 pm had morning meds Reported Meds & Active Scripts Active Walker with Front Wheels (Device) 1 Mis Mis 1 Ea .ROUTE DIRECTED Amlodipine (Amlodipine Besylate) 10 Mg Tab 10 Mg PO DAILY Lantus Solostar Pen Inj (Insulin Glargine) 300 Unit/3 Ml Pen 80 Units SQ DIRECTED take 80 units in the morning and 70 units at bedtime Carvedilol 12.5 Mg Tab 12.5 Mg PO BID Humalog Kwikpen Pen Inj (Insulin Lispro (Human) Inj) 300 Unit/3 Ml Pen 1 Units SQ DIRECTED Max dose at bedtime: 0 units; sugar <70 (0) units, sugar 150-199(2)units sugar 200-249 (4)units sugar 250-299 (7)units sugar 300-349 (10)units sugars>349 (12)units Fluoxetine (Fluoxetine HCl) 40 Mg Cap 40 Cap PO DAILY Atrovent HFA 12.9 GM Inh (Ipratropium [place]) 17 Mcg/Act Aer 2 Puff INH QID Duoneb (Ipratropium-Albuterol Neb) 0.5-2.5 Mg/3 Ml Neb 1 Nebule INH Q6HR NEB Walker with Front Wheels (Device) 1 Mis Mis 1 Ea .ROUTE DIRECTED Isosorbide Mononitrate ER (Isosorbide Mononitrate) 60 Mg Tab 60 Mg PO DAILY Reported Ventolin Hfa 18 GM Inh (Albuterol Sulfate) 90 Mcg/Act Aer 1 Puff INH Q4H PRN Ferrous Sulfate 325 Mg Tab 650 Mg PO DAILY Nexium (Esomeprazole DR) 20 Mg Capdr 20 Mg PO DAILY Lisinopril 20 Mg Tab 20 Mg PO BID Metformin (Metformin HCl) 1,000 Mg Tab 1,000 Mg PO BIDPC With meals Allergies: Coded Allergies: No Known Allergies (Verified , 10/02/16) Family History Per EMR - Father: (lung cancer) - Mother: (pulmonary disease), CHF, DM - Sister 1: cervical, thyroid and lung cancer - Sister 2: ovarian and colon cancer - Brothers: lung cancer Social History Per EMR - Tobacco: former (quit 2006, 2 PPD x 40 years) - EtOH: denies - Recreational drugs: denies - On disability. Physical Exam Vital Signs Vital Signs Date Time Temp Pulse Resp B/P Pulse Ox O2 Delivery O2 Flow Rate FiO2 11/07/16 21:44 84 30 154/73 95 Nasal Cannula 2 11/07/16 20:01 80 30 156/73 97 Aerosol Mask 7 11/07/16 19:55 94 Nasal Cannula 2 11/07/16 19:55 98.8 79 29 131/88 88 Room Air Physical Exam GENERAL: Patient appears mildly short of breath when resting in seated position on NC O2 SKIN: Warm and dry, no rashes appreciated EYES: No scleral icterus, injection, or drainage. EOM grossly intact HENT: Head: Normocephalic. Mouth: No lesions appreciated. NECK: No appreciated lymphadenopathy or thyromegaly CARDIOVASCULAR: Regular rate and rhythm without murmurs. Normal peripheral perfusion in lower extremities. RESPIRATORY: Normal respiratory rate. Decreased breath sounds bilaterally; no obvious congestion GASTROINTESTINAL: Abdomen soft, nondistended, bowel sounds normal. Some pain to palpation of central abdomen [patient states this is chronic] MUSCULOSKELETAL: Calves equal diameter bilaterally. R LE warm to touch relative to L. No obvious erythema. NEURO/PSYCH: Awake, alert, and oriented. Cranial nerves grossly normal. Grossly normal motor and sensory function with exception of bilateral decreased sensation distal to ankles. Laboratory Laboratory Tests Test 11/07/16 11/07/16 11/07/16 19:50 20:00 20:52 White Blood Count 13.3 Red Blood Count 4.09 Hemoglobin 11.0 Hematocrit 33.6 Mean Corpuscular Volume 82.0 Mean Corpuscular Hemoglobin 26.8 Mean Corpuscular Hemoglobin 32.6 Concent Red Cell Distribution Width 13.9 Platelet Count 287 Mean Platelet Volume 7.8 Neutrophils (%) (Auto) 82.7 Lymphocytes (%) (Auto) 8.0 Monocytes (%) (Auto) 6.8 Eosinophils (%) (Auto) 2.1 Basophils (%) (Auto) 0.4 Neutrophils # (Auto) 11.0 Lymphocytes # (Auto) 1.1 Monocytes # (Auto) 0.9 Eosinophils # (Auto) 0.3 Basophils # (Auto) 0.0 CBC Comment DIFF FINAL Differential Comment Prothrombin Time 10.7 Prothromb Time International 1.0 Ratio Activated Partial 25.6 Thromboplast Time Sodium Level 136 Potassium Level 3.3 Chloride Level 101 Carbon Dioxide Level 26.3 Anion Gap 9 Blood Urea Nitrogen 14 Creatinine 0.89 Estimat Glomerular Filtration 63 Rate Random Glucose 188 Calcium Level 9.0 Total Bilirubin 0.4 Aspartate Amino Transf 14 (AST/SGOT) Alanine Aminotransferase 17 (ALT/SGPT) Alkaline Phosphatase 132 Total Creatine Kinase 64 Troponin I LESS THAN 0.02 Total Protein 7.0 Albumin 2.9 Lipase 57 Blood Gas Puncture Site LT RADIAL Blood Gas Patient Temperature 98.6 Blood Gas HCO3 22 Blood Gas Base Excess -1.2 Blood Gas Oxygen Saturation 94 Arterial Blood pH 7.46 Arterial Blood Partial 32 Pressure CO2 Arterial Blood Partial 70 Pressure O2 Arterial Blood Oxygen Content 14.6 Arterial Blood 1.4 Carboxyhemoglobin Arterial Blood Methemoglobin 0.3 Blood Gas Hemoglobin 11.1 Oxygen Delivery Device NASAL CANNULA Blood Gas Liter Flow 1 B-Type Natriuretic Peptide 120 Date/Time Procedure Status Source Growth 11/07/16 20:00 Aerobic Blood Culture Received Blood Peripheral Pending 11/07/16 20:00 Anaerobic Blood Culture Received Blood Peripheral Pending Result Diagram: 11/07/16 1950 11/07/161949 Imaging Last Impressions Chest X-Ray 11/07/161950 Signed Impressions: Service Date/Time: Monday, November 07, 2016 20:09 - CONCLUSION: Patchy nonspecific airspace opacities, left more than right. Sam Gonzalez MD CT Angiography 11/07/16 0000 Signed Impressions: Service Date/Time: Monday, November 07, 2016 21:20 - CONCLUSION: 1. Small left lower lobe pulmonary embolus. 2. Widespread airspace disease, nonspecific. 3. Coronary artery calcification. 4. 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 Sam Gonzalez MD Assessment and Plan Assessment and Plan Ms. Sewell is a 66 yo F with: Code Status DNR Problem List: (1) PE (pulmonary thromboembolism) Status: Acute Plan: -Due to PMH diarrhea, hemoccult performed and negative -Will continue therapeutic Lovenox 1mg/kg BID since normal renal function -Since symptoms significant, will obtain echo to evaluate RV function -Will check RLE doppler US since warmth to touch on exam -Telemetry Impression: Hemodynamically stable. Symptoms: Worsening SOB x >1 week. PMH Ovarian cancer. Recent C spine surgery 10/02/3016 CTA- 1. Small left lower lobe pulmonary embolus. 2. Widespread airspace disease , nonspecific. 3. Coronary artery calcification. 4. 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 Per discussion between ED and NS, patient cleared for use of anticoagulation Cr wnl Troponin wnl (2) Pneumonia Status: Acute Plan: Start empiric H CAP therapy -Levofloxacin 750 mg daily -Cefepime 2 g every 8 hrs Sputum culture Blood cultures pending Legionella and pneumococcal urinary antigens We'll give methylprednisone 40 mg daily Continue O2 supplementation Continue duo nebs as needed Impression: Patient with worsening shortness of breath likely predominantly attributed to PE, however has been febrile to 101F the past day and has had increased cough and purulent sputum. Due to hypoxia and oxygen requirement, we will treat as HCAP due to recent hospitalization less than 90 days ago CXR on admission Patchy nonspecific airspace infiltrates, left more than right WBC 13.3; neutrophils 82% (3) Sepsis Status: Acute Plan: Impression: RR>20, WBC >12k. Suspect symptoms secondary to PE; however, pneumonia possible. -Continue treatment for pneumonia as above -Will check lactic acid -Will start mild IVF (4) Hypertension Status: Chronic Plan: Continue Amlodipine 10 mg daily Continue Carvedilol 12.5 mg twice a day Continue Lisinopril 20 mg twice a day Impression:PMH hypertension. SBP 130's-150's on admission (5) Coronary artery disease Status: Chronic Plan: -Continue Carvedilol -Continue Lisinopril -Will start statin and obtain Lipid profile Impression: PMH CAD s/p 1 coronary stent. Reportedly sees Dr. Telles. Patient reports reassuring stress test prior to 10/02 cervical fusion. On BB/TYLER; no statin or ASA in EMR. ASCVD risk 20.6% using 10/2015 Lipid panel. CMP wnl Troponin x1 wnl Per ED review (I could not find myself): EKG w/ sinus rhythm with no sign of acute ischemia or arrhythmia (6) Diabetes mellitus Status: Chronic Plan: -Will start Accuchecks/ SS Novolog while inpatient -Will start Levemir 35mg BID and rapidly up-titrate as needed during hospitalization (decreased oral intake w/ elevated RR/mild distress) -Will hold Metformin Impression: A1C 9 07/2016. On Lantus 70/80 U BID and SS during day. Also on Metformin (7) Anxiety and depression Status: Chronic Plan: -Continue Fluoxetine 40mg daily Impression: PMH Depression. On home Fluoxetine (8) COPD (chronic obstructive pulmonary disease) Status: Chronic Plan: -Continue to monitor respiratory function -Albuterol/Ipratropium nebulizers Impression: Chronic COPD; ~40 pk yr history. On home Albuterol nebulizer and inhaler (9) S/P cervical spinal fusion Status: Resolved Plan: -Monitor; be aware if potential need for intubation occurs Impression: Patient recently underwent C3-4 and C4-5 anterior cervical fusion with removal of C4-6 cervical plate 10/02. Patient reports she is doing well at this time that she plans to have follow-up x-rays 11/11 and potential removal of neck brace 11/13 after following up with Dr. Lares (10) History of ovarian cancer Status: Chronic Plan: Impression: Patient reports history of ovarian cancer. Per oncology documentation, cancer is currently stage IC without clinical evidence of remission. Patient states she last saw her Gynecologic Oncologist 07/2016 (11) Diarrhea Status: Acute Plan: Hemoccult negative We'll obtain C. difficile PCR although clinical suspicion low Impression: Approximately 1 month history of diarrhea; patient states 510 stools daily. Mild hypokalemia on admission. Stool is dark. (12) Fluids, Electrolytes, and Nutrition Status: Acute Plan: Fluids: We'll start mild fluids since patient meets sepsis criteria ( suspicion low; suspect PE as chief symptom) Electrolytes: Mild hypokalemia on admission; will replete Nutrition: Diabetic diet (13) Prophylaxis Status: Acute Plan: Bilateral SCDs Therapeutic Lovenox for PE Protonix for GI P PX on steroids Physician Certification 2 Midnight Certification Type: Admission for Inpatient Services Order for Inpatient Services The services are ordered in accordance with Medicare regulations or non- Medicare payer requirements, as applicable. In the case of services not specified as inpatient-only, they are appropriately provided as inpatient services in accordance with the 2-midnight benchmark. Estimated LOS (days): 3 days is the estimated time the patient will need to remain in the hospital, assuming treatment plan goals are met and no additional complications. Post-Hospital Plan: Home Problem Qualifiers (1) Coronary artery disease: Qualified Code: I25.10 - Coronary artery disease involving tribal heart without angina pectoris, unspecified vessel or lesion type (2) Diabetes mellitus: Qualified Code: E11.40 - Type 2 diabetes mellitus with diabetic neuropathy, unspecified middle or intermediate school principal insulin use status Marlon Finn MD R2 November 07, 2016 22:48
[2016-11-07 23:00] VITALS: O2SAT 96
[2016-11-07 23:28] LABS: BACTERIA, URINE RARE /hpf; BLOOD, URINE SMALL (NEG); COMMENT (UR) CULT NOT INDICATED; CULTURE IF INDICATED CULT NOT INDICATED; GLUCOSE,URINE NEG (NEG); KETONE, URINE 10 mg/dL (NEG); MUCUS URINE FEW /lpf (OCC); NITRITE,URINE NEG (NEG); PH, URINE 5.5 (5.0-8.5); SQUAMOUS EPITHELIAL CELL URINE 1 /hpf (0-5); URINE COLOR YELLOW (YELLW/STRAW)
[2016-11-07] MEDS ORDERED: ONDANSETRON HCL 4 MG/2 ML VIAL IVP PRN (23:30)
[2016-11-07] MEDS ORDERED: SODIUM CHLORIDE 0.9% FLUSH 10 ML FLUSH IV FLUSH PRN (23:30)
[2016-11-07] MEDS ORDERED: NALOXONE HCL 0.4 MG/ML AMP IV PRN (23:30)
--- NOTE | 2016-11-07 23:52 | RADRPT ---
EXAM DATE/TIME: 11/07/2016 23:41 [facility] COMPARISON: CHEST SINGLE AP, November 07, 2016, 20:09. INDICATIONS : Patient states shortness of breath. MEDICAL HISTORY : Chronic obstructive pulmonary disease. SURGICAL HISTORY : Stent. Infusaport ENCOUNTER: Initial ACUITY: 1 day PAIN SCORE: 0/10 LOCATION: Bilateral chest FINDINGS: A single view of the chest demonstrates minimal patchy densities in the upper lobes and lower lobes. Heart in the upper limits of normal size. Right-sided portacatheter with tip in the SVC. arkable. Os seous structures are intact. CONCLUSION: Scattered patchy infiltrates. Jay Vazquez MD on November 07, 2016 at 23:50 Board Certified Radiologist. This report was verified electronically.
[2016-11-08] VITALS (11 sets, daily range): BP systolic 128–199; BP diastolic 64–95; PULSE 77–90; RESP 18–26; TEMP 97.6–98.5; O2SAT 93–96
[2016-11-08] MEDS ORDERED: POTASSIUM CHLORIDE 10 MEQ CONTROLLED RELEASE TAB PO ONE
[2016-11-08] MEDS ORDERED: GLUCAGON 1 MG/ML VIAL OTHER PRN
[2016-11-08] MEDS ORDERED: DEXTROSE 50% IN WATER 50 ML VIAL(D50) IV PUSH PRN
[2016-11-08] MEDS: LEVOFLOXACIN 750 MG PREMIX INJ 150 ML IV SCH (01:06)
[2016-11-08] MEDS: PANTOPRAZOLE SODIUM 40 MG VIAL IV PUSH SCH ×2 (01:06→23:02)
[2016-11-08] MEDS: CEFEPIME INJ 2,000 MG in SODIUM CHLORIDE 0.9% INJ 100 ML IV SCH ×4 (02:29→23:02)
[2016-11-08 03:43] LABS: AUTOMATED NEUTROPHIL # 11.3 TH/MM3 (1.8-7.7); BASOPHIL % 0.4 % (0.0-2.0); HEMATOCRIT 33.1 % (35.0-46.0); HEMO FLAGS DIFF FINAL; LYMPH % 3.5 % (9.0-44.0); LYMPHOCYTE # 0.4 TH/MM3 (1.0-4.8); MEAN CELL VOLUME 82.7 FL (80.0-100.0); MEAN CORPUSCULAR HEMOGLOBIN 27.7 PG (27.0-34.0); MEAN CORPUSCULAR HGB CONC 33.5 % (32.0-36.0); MONO % 0.6 % (0.0-8.0); NEUT % 95.5 % (16.0-70.0); PLATELET COUNT 292 TH/MM3 (150-450); RED CELL DISTRIBUTION WIDTH 14.3 % (11.6-17.2); WHITE BLOOD COUNT 11.8 TH/MM3 (4.0-11.0)
[2016-11-08] MEDS: NS + KCL 20 MEQ INJ 1,000 ML IV SCH ×3 (03:58→23:02)
[2016-11-08 04:24] LABS: BICARBONATE 25.6 MEQ/L (21.0-32.0); HDL CHOLESTEROL 42.6 MG/DL (40.0-60.0); POTASSIUM 4.6 MEQ/L (3.5-5.1)
[2016-11-08] MEDS: INSULIN ASPART SUPPLEMENTAL SCALE SQ SCH ×4 (05:48→21:00)
[2016-11-08] MEDS ORDERED: hydrALAZINE HCL 10 MG TAB PO PRN (07:30)
[2016-11-08] MEDS: LISINOPRIL 20 MG TAB PO SCH ×2 (08:43→21:24)
[2016-11-08] MEDS: ISOSORBIDE MONONITRATE 60 MG TAB PO SCH (08:43)
[2016-11-08] MEDS: FLUoxetine HCL 20 MG CAP PO SCH (08:43)
[2016-11-08] MEDS: ATORVASTATIN 40 MG TAB PO SCH (08:43)
[2016-11-08] MEDS: SODIUM CHLORIDE 0.9% FLUSH 10 ML FLUSH IV FLUSH SCH ×2 (08:44→21:00)
[2016-11-08] MEDS: CARVEDILOL 12.5 MG TAB PO SCH ×2 (08:44→21:24)
[2016-11-08] MEDS: INSULIN DETEMIR 100 UNITS/ML VIAL SQ SCH ×2 (08:44→21:00)
[2016-11-08] MEDS: FERROUS SULFATE 325 MG (65 MG ELEMENTAL IRON) TAB PO SCH ×2 (08:44→21:24)
--- NOTE | 2016-11-08 08:48 | RADRPT ---
EXAM DATE/TIME: 11/08/2016 07:48 [facility] COMPARISON: No previous studies available for comparison. INDICATIONS : Bilateral leg redness and swelling. MEDICAL HISTORY : Myocardial infarction. Congestive heart failure. Hypercholesterolemia. Pulmonary embolism. ACDF. CAD. Chest pain. HTN. COPD. Asthma. GERD. Ovarian cysts. Carinoma, ovarian. Acute renal failure. Renal ca lculi. Arthritis. Osteoarthritis. Diabetes. Fibromyalga. Depression. Anxiety. SURGICAL HISTORY : Tonsillectomy.Coronary artery stent. Cholecystectomy.Cardiac cath. Appendectomy. Hysterectomy. Bilate ral S&O. section. Left foot. Cervical. Cadavir surgery neck. Chemotherapy. Blood transfusion s. Carpel tunnel. ENCOUNTER: Initial ACUITY: 2 day PAIN SCORE: 8/10 LOCATION: Bilateral leg. TECHNIQUE: Venous ultrasound of the left and right leg was performed from the inguinal ligament to the proximal calf. Real-time, color Doppler and spectral tracing, compression and augmentation techniques were us ed. FINDINGS: RIGHT LEG: There is normal compressibility of the deep venous system from the inguinal region to the proximal ca lf. No echogenic clot is seen in the lumen of the common femoral, femoral, popliteal, and posterior tibial veins. There is a normal response of the venous system to proximal and distal augmentation an d respiration. There is apparent thrombus noted in one of the right superficial veins in the distal calf. LEFT LEG: There is normal compressibility of the deep venous system from the inguinal region to the proximal ca lf. No echogenic clot is seen in the lumen of the common femoral, femoral, popliteal, and posterior tibial veins. There is a normal response of the venous system to proximal and distal augmentation an d respiration. CONCLUSION: 1. No evidence of deep venous thrombosis. 2. Apparent thrombus in one of the right superficial femoral veins in the calf region. Eddie Judge MD on November 08, 2016 at 8:45 Board Certified Radiologist. This report was verified electronically.
[2016-11-08] MEDS ORDERED: INSULIN DETEMIR 100 UNITS/ML VIAL SQ SCH (09:00)
[2016-11-08] MEDS ORDERED: PANTOPRAZOLE SOD 20 MG DELAYED RELEASE TAB PO SCH (09:00)
[2016-11-08] MEDS: RESP: ALBUTEROL 2.5 MG/IPRATROPIUM 0.5 MG NEB (PRN) INH ×3 (09:33→21:38)
--- NOTE | 2016-11-08 09:49 | EKG ---
Date Performed: 11/08/2016 Time Performed: 04:49:36 PTAGE: 66 years EKG: Sinus rhythm Anterior T wave changes are nonspecific Borderline ECG PREVIOUS TRACING : 11/01/2015 17.51 DOCTOR: Veda Vasquez Interpretating Date/Time 11/08/2016 09:46:53
[2016-11-08] MEDS ORDERED: ENOXAPARIN SODIUM 120 MG/0.8 ML SYRINGE SQ SCH (10:00)
--- NOTE | 2016-11-08 10:20 | HHI.FPPN ---
Subjective Remarks Patient is doing better this morning. She states she would like to go home tomorrow or Thursday if possible. She has a minor headache and overall pains which she attributes to fibromyalgia. No fever or chills. No chest pain. Objective Vitals Vital Signs Date Time Temp Pulse Resp B/P Pulse Ox O2 Delivery O2 Flow Rate FiO2 11/08/16 09:30 95 Nasal Cannula 2.00 11/08/16 08:00 97.6 85 26 180/73 96 11/08/16 05:46 162/90 11/08/16 04:00 98.1 89 18 199/95 95 11/08/16 00:30 Nasal Cannula 3.00 11/08/16 00:25 98.2 77 20 128/72 95 11/07/16 23:00 96 Nasal Cannula 2.00 11/07/16 21:44 84 30 154/73 95 Nasal Cannula 2 11/07/16 20:01 80 30 156/73 97 Aerosol Mask 7 11/07/16 19:55 94 Nasal Cannula 2 11/07/16 19:55 98.8 79 29 131/88 88 Room Air Result Diagram: 11/08/16 0329 11/08/16 0329 Imaging Last Impressions Lower Extremity Ultrasound 11/08/16 0000 Signed Impressions: Service Date/Time: Tuesday, November 08, 2016 07:48 - CONCLUSION: 1. No evidence of deep venous thrombosis. 2. Apparent thrombus in one of the right superficial femoral veins in the calf region. Eddie Judge MD Chest X-Ray 11/07/16 4107 Signed Impressions: Service Date/Time: Monday, November 07, 2016 23:41 - CONCLUSION: Scattered patchy infiltrates. Jay Vazquez MD CT Angiography 11/07/16 0000 Signed Impressions: Service Date/Time: Monday, November 07, 2016 21:20 - CONCLUSION: 1. Small left lower lobe pulmonary embolus. 2. Widespread airspace disease, nonspecific. 3. Coronary artery calcification. 4. 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 Sam Gonzalez MD Objective Remarks GENERAL: Obese female Granados comfortably in bed on nasal cannula. SKIN: Warm and dry, no rashes appreciated EYES: No scleral icterus, injection, or drainage. EOM grossly intact HENT: Head: Normocephalic. Mouth: No lesions appreciated. NECK: No appreciated lymphadenopathy or thyromegaly CARDIOVASCULAR: Regular rate and rhythm without murmurs. Normal peripheral perfusion in lower extremities. RESPIRATORY: Normal respiratory rate. Decreased breath sounds bilaterally; no obvious congestion GASTROINTESTINAL: Abdomen soft, nondistended, bowel sounds normal. MUSCULOSKELETAL: Calves equal diameter bilaterally. R LE warm to touch relative to L. No obvious erythema. NEURO/PSYCH: Awake, alert, and oriented. Cranial nerves grossly normal. Grossly normal motor and sensory function with exception of bilateral decreased sensation distal to ankles. A/P Assessment and Plan Ms. Sewell is a 66 yo F with newly diagnosed pulmonary embolus treatment as below. Discharge Planning 1-2 days pending clinical improvement. Problem List: (1) PE (pulmonary thromboembolism) Status: Acute Plan: Currently on therapeutic Lovenox 1 mg/kg twice a day. Likely switch to xarelto 50 mg twice a day for 3 weeks then 20 mg daily Oxygen when necessary to keep sats greater than 92% (2) Pneumonia Status: Acute Plan: Continue empiric H CAP therapy -Levofloxacin 750 mg daily -Cefepime 2 g every 8 hrs Sputum culture Blood cultures pending Legionella and pneumococcal urinary antigens: Negative Methylprednisone 40 mg daily Continue O2 supplementation Continue duo nebs as needed (3) Hypertension Status: Chronic Plan: Continue Amlodipine 10 mg daily Continue Carvedilol 12.5 mg twice a day Continue Lisinopril 20 mg twice a day -Hydralazine when necessary systolic blood pressure greater than 170 (4) Coronary artery disease Status: Chronic Plan: -Continue Carvedilol -Continue Lisinopril (5) Diabetes mellitus Status: Chronic Plan: -Will start Accuchecks/ SS Novolog while inpatient -Levemir 50 units twice a day (see below for home regimen) -Will hold Metformin Impression: A1C 9 07/2016. On Lantus 70/80 U BID and SS during day. Also on Metformin (6) Anxiety and depression Status: Chronic Plan: -Continue Fluoxetine 40mg daily (7) COPD (chronic obstructive pulmonary disease) Status: Chronic Plan: -Continue to monitor respiratory function -Albuterol/Ipratropium nebulizers (8) S/P cervical spinal fusion Status: Resolved Plan: -Monitor; be aware if potential need for intubation occurs Impression: Patient recently underwent C3-4 and C4-5 anterior cervical fusion with removal of C4-6 cervical plate 3/30. Patient reports she is doing well at this time that she plans to have follow-up x-rays 11/11 and potential removal of neck brace 11/13 after following up with Dr. Lares (9) Diarrhea Status: Acute Plan: Hemoccult negative We'll obtain C. difficile PCR although clinical suspicion low (10) Fluids, Electrolytes, and Nutrition Status: Acute Plan: Fluids: Tolerating by mouth Electrolytes: Monitor and replace as needed Nutrition: Diabetic diet Prophylaxis: Therapeutic anticoagulation as above for PE. Bilateral SCDs Protonix for GI prophylaxis while on steroids. Problem Qualifiers (1) Coronary artery disease: Qualified Code: I25.10 - Coronary artery disease involving [place] heart without angina pectoris, unspecified vessel or lesion type (2) Diabetes mellitus: Qualified Code: E11.40 - Type 2 diabetes mellitus with diabetic neuropathy, unspecified longterm insulin use status Fidencio Curtis MD R2 November 08, 2016 10:20
[2016-11-08] MEDS: methylPREDNISolone SOD SUCC 40 MG/1 ML VIAL IV SCH (12:13)
[2016-11-08] MEDS: ACETAMINOPHEN 325 MG TAB PO PRN ×3 (12:14→21:24)
--- NOTE | 2016-11-08 17:55 | EC ---
Study Study Date:11/08/2016 STUDY CONCLUSIONS SUMMARY - Left ventricle: The cavity size was mildly to moderately dilated. Wall thickness was normal. Systolic function was moderately to severely reduced. The estimated ejection fraction was in the range of 30% to 35%. Wall motion was normal; there were no regional wall motion abnormalities. The study is not technically sufficient to allow evaluation of LV diastolic function. - Aortic valve: Valve area: 2.1cm^2(VTI). Valve area: 2.25cm^2 (Vmax). - Left atrium: The atrium was mildly dilated. - Pulmonary arteries: PA peak pressure: 37mm Hg (S). Recommendations: poor acoustic window. If more info needed, please order a CELIA If LV function is below 40, please consider prescribing an ACEI or ARB or document rationale for non-use. PROCEDURE DATA STUDY STATUS: Elective. Procedure: Transthoracic echocardiography. Image quality was good. Scanning was performed from the parasternal, apical, and subcostal acoustic windows. Study completion: The patient tolerated the procedure well. Transthoracic echocardiography. M-mode, complete 2D, complete spectral Doppler, and color Doppler. Height: Height: 66in. Weight: Weight: 250.5lb. Body mass index: BMI: 40.5kg/m^2. Body surface area: BSA: 2.2m^2. Patient status: Inpatient. CARDIAC ANATOMY LEFT VENTRICLE: The cavity size was mildly to moderately dilated. Wall thickness was normal. Systolic function was moderately to severely reduced. The estimated ejection fraction was in the range of 30% to 35%. Wall motion was normal; there were no regional wall motion abnormalities. The study is not technically sufficient to allow evaluation of LV diastolic function. AORTIC VALVE: Trileaflet; moderately thickened, moderately calcified leaflets. Doppler: Transvalvular velocity was within the normal range. There was no stenosis. No regurgitation. Valve area: 2.1cm^2(VTI). Indexed valve area: 0.95cm^2/m^2 (VTI). Valve area: 2.25cm^2 (Vmax). Indexed valve area: 1.02cm^2/m^2 (Vmax). Mean gradient: 5mm Hg (S). AORTA: Aortic root: The aortic root was normal in size. MITRAL VALVE: Structurally normal valve. Doppler: Transvalvular velocity was within the normal range. There was no evidence for stenosis. No regurgitation. Peak gradient: 2mm Hg (D). LEFT ATRIUM: The atrium was mildly dilated. RIGHT VENTRICLE: The cavity size was normal. Wall thickness was normal. PULMONIC VALVE: Doppler: Transvalvular velocity was within the normal range. There was no evidence for stenosis. No regurgitation. TRICUSPID VALVE: Structurally normal valve. Doppler: Transvalvular velocity was within the normal range. No regurgitation. PULMONARY ARTERY: The main pulmonary artery was normal-sized. Systolic pressure was within the normal range. RIGHT ATRIUM: The atrium was normal in size. PERICARDIUM: There was no pericardial effusion. SYSTEMIC VEINS: Inferior vena cava: The vessel was normal in size. Patient weight: 250.5lb _Ejection fraction:_ 65-75% _Fractional shortening:_ 32% up to 5Kg 5-11.5Kg 11.6-22.9Kg 23-45Kg 45-57Kg Aortic Root 7-13 <17 13-22 17-27 17-27 LA diam 6-13 <23 24-38 33-47 37-40 RVID 10-17 7-15 7-15 7-18 8-17 LVIDd 12-22 <32 24-38 33-47 37-40 LVPW 2-4 3-6 5-7 6-8 7-8 IVS 2-4 3-6 5-7 6-8 7-8 BASIC MEASUREMENTS ADULT NORMAL Left ventricle LV internal dimension, ED, chordal *37.8 mm 43-52 level, PLAX LV internal dimension, ES, chordal 31.8 mm 23-38 level, PLAX Fractional shortening, chordal level, *16 % >29 PLAX LV posterior wall thickness, ED 12.6 mm IVS/LVPW ratio, ED 0.99 <1.3 Ventricular septum Septal thickness, ED 12.5 mm Aortic valve Leaflet separation 21 mm 15-26 Aorta Root diameter, ED 30 mm Left atrium Anterior-posterior dimension 43 mm Anterior-posterior dimension index 1.95 cm/m^2 <2.2 BASIC MEASUREMENTS ADULT NORMAL Aortic valve Leaflet separation 21 mm 15-26 DOPPLER MEASUREMENTS ADULT NORMAL Main pulmonary artery Pressure, S *37 mm Hg =30 Aortic valve Peak velocity, S 153 cm/s Mean velocity, S 110 cm/s VTI, S 33.9 cm Mean gradient, S 5 mm Hg Valve area, VTI 2.1 cm^2 Valve area index, VTI 0.95 cm^2/m^2 Valve area, Vmax 2.25 cm^2 Valve area index, Vmax 1.02 cm^2/m^2 Mitral valve Peak E-wave velocity 79 cm/s Peak A-wave velocity 109 cm/s Deceleration time *250 ms 150-230 Peak gradient, D 2 mm Hg Peak E/A ratio 0.7 Tricuspid valve Regurgitant peak velocity 259 cm/s Peak RV-RA gradient, S 27 mm Hg Maximal regurgitant velocity 259 cm/s Systemic veins Estimated CVP 10 mm Hg Right ventricle RV pressure, S *40 mm Hg <30 Pulmonic valve Peak velocity, S 84.2 cm/s LEGEND: Mean values are shown as u=mean value. Asterisk (*) bynum values outside specified normal range. Prepared and signed by Veda Vasquez [id number]
[2016-11-08] MEDS: RIVAROXABAN 15 MG TAB PO SCH (21:25)
[2016-11-08 23:10] LABS: C. DIFF EPI 027 PRESUMPTIVE NEGATIVE (NEGATIVE); C. DIFF TOXIN PCR NEGATIVE (NEGATIVE)
[2016-11-09] VITALS (8 sets, daily range): BP systolic 133–166; BP diastolic 69–94; PULSE 64–77; RESP 18–32; TEMP 97.4–98.4; O2SAT 93–96
[2016-11-09] MEDS: methylPREDNISolone SOD SUCC 40 MG/1 ML VIAL IV SCH ×2 (00:09→11:56)
[2016-11-09] MEDS: LEVOFLOXACIN 750 MG PREMIX INJ 150 ML IV SCH (00:10)
[2016-11-09] MEDS: INSULIN ASPART SUPPLEMENTAL SCALE SQ SCH ×4 (05:24→21:46)
[2016-11-09 07:32] LABS: AUTOMATED NEUTROPHIL # 10.5 TH/MM3 (1.8-7.7); BASOPHIL % 0.1 % (0.0-2.0); HEMATOCRIT 32.5 % (35.0-46.0); HEMO FLAGS DIFF FINAL; LYMPH % 5.5 % (9.0-44.0); LYMPHOCYTE # 0.6 TH/MM3 (1.0-4.8); MEAN CORPUSCULAR HEMOGLOBIN 27.2 PG (27.0-34.0); MEAN CORPUSCULAR HGB CONC 32.8 % (32.0-36.0); MONO % 3.3 % (0.0-8.0); NEUT % 91.1 % (16.0-70.0); PLATELET COUNT 325 TH/MM3 (150-450); RED BLOOD COUNT 3.91 MIL/MM3 (4.00-5.30); RED CELL DISTRIBUTION WIDTH 14.4 % (11.6-17.2); WHITE BLOOD COUNT 11.5 TH/MM3 (4.0-11.0)
[2016-11-09] MEDS: ISOSORBIDE MONONITRATE 60 MG TAB PO SCH (08:17)
[2016-11-09] MEDS: FLUoxetine HCL 20 MG CAP PO SCH (08:17)
[2016-11-09] MEDS: CARVEDILOL 12.5 MG TAB PO SCH ×2 (08:17→21:42)
[2016-11-09] MEDS: INSULIN DETEMIR 100 UNITS/ML VIAL SQ SCH ×2 (08:17→21:43)
[2016-11-09] MEDS: ATORVASTATIN 40 MG TAB PO SCH (08:17)
[2016-11-09] MEDS: FERROUS SULFATE 325 MG (65 MG ELEMENTAL IRON) TAB PO SCH ×2 (08:17→21:42)
[2016-11-09] MEDS: RIVAROXABAN 15 MG TAB PO SCH ×2 (08:18→21:42)
[2016-11-09] MEDS: LISINOPRIL 20 MG TAB PO SCH ×2 (08:18→21:42)
[2016-11-09] MEDS: CEFEPIME INJ 2,000 MG in SODIUM CHLORIDE 0.9% INJ 100 ML IV SCH ×2 (08:20→16:53)
[2016-11-09] MEDS: SODIUM CHLORIDE 0.9% FLUSH 10 ML FLUSH IV FLUSH SCH ×2 (08:25→23:14)
[2016-11-09 08:36] LABS: ALKALINE PHOSPHATASE 135 U/L (45-117); ALT (GPT) 22 U/L (10-53); ANION GAP 6 MEQ/L (5-15); AST (GOT) 14 U/L (15-37); BICARBONATE 27.8 MEQ/L (21.0-32.0); BLOOD UREA NITROGEN 21 MG/DL (7-18); CHLORIDE 103 MEQ/L (98-107); GLOMERULAR FILTRATION RATE 60 ML/MIN (>89); POTASSIUM 4.7 MEQ/L (3.5-5.1); SODIUM (NA) 137 MEQ/L (136-145); TOTAL BILIRUBIN ADULT 0.3 MG/DL (0.2-1.0)
[2016-11-09] MEDS ORDERED: RESP: ALBUTEROL 2.5 MG/3 ML NEB (PRN) NEB (09:15)
--- NOTE | 2016-11-09 09:25 | HHI.FPPN ---
Subjective Remarks Pt seen and examined this AM. Reports she feels short of breath and requests a breathing treatment. Endorses nonproductive cough and dyspnea with exertion such as going to the bathroom. Endorses some mild chest pressure that she attributes to not being able to breath well. Denies LE edema, hemoptysis, abdominal pain, N/V. Tolerating PO. Would be agreeable to going to rehab on discharge if out of pocket cost is reasonable; otherwise she reports her son is at home with her and can help with her needs. (Tess Phipps MD) Objective Vitals Vital Signs Date Time Temp Pulse Resp B/P Pulse Ox O2 Delivery O2 Flow Rate FiO2 11/09/16 08:00 98.3 70 32 166/78 95 Automatic Cuff 11/09/16 07:15 Nasal Cannula 3.00 11/09/16 04:00 97.8 77 18 166/94 93 11/09/16 00:00 97.4 64 18 151/71 94 11/08/16 23:30 Nasal Cannula 3.00 11/08/16 21:39 95 Nasal Cannula 3.00 11/08/16 20:05 90 11/08/16 20:00 97.8 81 18 154/70 96 11/08/16 16:00 98.3 82 26 155/71 93 11/08/16 12:00 98.5 78 24 138/64 94 11/08/16 09:30 95 Nasal Cannula 2.00 I/O 11/08/16 11/08/16 11/08/16 11/09/16 11/09/16 11/09/16 07:00 15:00 23:00 07:00 15:00 23:00 Intake Total 600 ml 838 ml 962 ml Output Total 750 ml Balance -150 ml 838 ml 962 ml Intake Oral 600 ml 240 ml 240 ml IV Total 598 ml 722 ml Output Urine Total 750 ml # Voids 4 1 1 # Bowel Movements 0 0 (Tess Phipps MD) Result Diagram: 11/09/16 0711 11/09/16 0711 Imaging Lower Extremity Ultrasound 11/08/16 0000 Signed Impressions: Service Date/Time: Tuesday, November 08, 2016 07:48 - CONCLUSION: 1. No evidence of deep venous thrombosis. 2. Apparent thrombus in one of the right superficial femoral veins in the calf region. Eddie Judge MD Chest X-Ray 11/07/16 2317 Signed Impressions: Service Date/Time: Monday, November 07, 2016 23:41 - CONCLUSION: Scattered patchy infiltrates. Jay Vazquez MD CT Angiography 11/07/16 0000 Signed Impressions: Service Date/Time: Monday, November 07, 2016 21:20 - CONCLUSION: 1. Small left lower lobe pulmonary embolus. 2. Widespread airspace disease, nonspecific. 3. Coronary artery calcification. 4. 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 Sam Gonzalez MD Objective Remarks GENERAL: Obese female sitting up in bed. SKIN: Warm and dry, no rashes appreciated. HEENT: Pupils equal and round. No nasal drainage. Nasal cannula in place. MMM. NECK: C-collar in place. HEART: Distant heart sounds with RRR no m/r/g. LUNGS: Decreased breath sounds with diffuse crackles that improve after coughing. ABDOMEN: Soft, NT, ND. EXTREMITIES: No LE edema. No calf tenderness. NEURO: Awake and alert. (Tess Phipps MD) A/P Assessment and Plan 66 year old female admitted for pulmonary embolism and hospital- acquired pneumonia. Her PE is being treated with Xarelto and her PNA has been treated with Cefepime and Levaquin. Today she is growing Gram positive cocci in one set of blood cultures; will add vancomycin and consult ID for further evaluation. Discharge Planning Unclear discharge time table since patient now growing Gram positive cocci in blood. (Tess Phipps MD) Attending Attestation Patient seen and examined. Case reviewed and discussed with the resident team. Agree with plan of care as discussed with me and documented in the resident note (Bebeto Wilburn MD) Problem List: (1) Gram-positive bacteremia Status: Acute Plan: Second set of admission BC positive for Gram+ cocci in two tubes. Will add vancomycin 1250 mg IV BID and consult ID for further evaluation. Repeat blood cultures ordered. (2) PE (pulmonary thromboembolism) Status: Acute Plan: Patient presenting with shortness of breath found to have small left lower lobe PE. Initially she was anticoagulated on therapeutic Lovenox but has since been converted to Xarelto (50 mg PO BID x 3 weeks then 20 mg daily). - Supplemental O2 PRN - 2D echo with EF 30-35% with normal wall motion and elevated PA pressure. Already on BB and TYLER-inhibitor (3) Pneumonia Status: Acute Plan: Continue empiric treatment with Levaquin 750 mg PO daily and Cefepime 2 g Q8H. - Solumedrol 40 mg IV Q12H - DuoNeb Q6H scheduled - Albuterol nebs Q2H PRN - Supplemental O2 PRN - Sputum culture pending - Second set of blood cultures growing Gram positive cocci - Legionella and pneumococcal urinary antigens negative (4) Hypertension Status: Chronic Plan: Continue home Amlodipine, carvedilol, and Lisinopril. - Hydralazine PRN (5) Coronary artery disease Status: Chronic Plan: Continue home carvedilol, Lisinopril, Imdur, and Lipitor. (6) Diabetes mellitus Status: Chronic Plan: Hold home Metformin. Continue Levemir 50 units BID. SSI per protocol. (7) Anxiety and depression Status: Chronic Plan: Continue home Fluoxetine 40 mg daily. (8) S/P cervical spinal fusion Status: Resolved Plan: Patient recently underwent C3-4 and C4-5 anterior cervical fusion with removal of C4-6 cervical plate 10/02. Patient reports she is doing well at this time that she plans to have follow-up x-rays 11/11 and potential removal of neck brace 11/13 after following up with Dr. Lares. Caution if potential need for intubation occurs. (9) Diarrhea Status: Acute Plan: Bedside Hemoccult negative. C. diff studies negative. (10) Fluids, Electrolytes, and Nutrition Status: Acute Plan: - Fluids: Tolerating PO - Electrolytes: WNL. Monitor and replace as needed - Nutrition: Diabetic diet - DVT prophylaxis: On Xarelto for PE - GI prophylaxis: On Protonix since on steroids sdw Dr. Wilburn, Dr. Curtis, and Dr. Lynn (Tess Phipps MD) Problem Qualifiers (1) Coronary artery disease: Qualified Code: I25.10 - Coronary artery disease involving [place] heart without angina pectoris, unspecified vessel or lesion type (2) Diabetes mellitus: Qualified Code: E11.40 - Type 2 diabetes mellitus with diabetic neuropathy, unspecified detention insulin use status Tess Phipps MD November 09, 2016 09:25 Bebeto Wilburn MD November 09, 2016 20:13
[2016-11-09] MEDS: RESP: ALBUTEROL 2.5 MG/IPRATROPIUM 0.5 MG NEB (PRN) INH ×3 (09:30→16:57)
[2016-11-09] MEDS ORDERED: VANCOMYCIN INJ 1,500 MG in SODIUM CHLORID 0.9% 500 ML INJ 500 ML IV SCH (10:00)
[2016-11-09] MEDS: ACETAMINOPHEN 325 MG TAB PO PRN ×3 (11:07→23:14)
[2016-11-09] MEDS ORDERED: Vancomycin Consult Pharmacy 1 EA OTHER SCH (12:00)
--- NOTE | 2016-11-09 16:37 | PD.ID.CON ---
History of Present Illness Service ID Consult Requested By Reason for Consult Evaluation and Mment of Pneumonia, GP bacteremia. Primary Care Physician Lauren Christensen MD Diagnoses: History of Present Illness Ms. Sewell is a 66 yo CF with PMH of recent cervical fusion n September 2016 by . Her PMHx is also significant for CAD, COPD, HTN who presents with shortness of breath. Patient reports that she has been unable to catch her breath for the past week, and has had gradually worsening respiratory function. Patient states due to the severity of her shortness of breath she has been unable to walk/talk/eat adequately/ambulate to the shower. Patient reports history of COPD and need for chronic use of Albuterol and Ipratropium nebulizer and inhalers at home. Patient reports no relief with usual measures leading to the ER visit. Patient also reports coughing up green/yellow sputum for ~1 day; she now reports coughing flecks of blood. Patient states that she took her temperature and had a fever to 101.1F over the past couple days (ranged from 99 - 101F). Patient reports diarrhea for ~ 1 month. Patient states having black stools but she attributes this to taking iron chronically. Patient states her diarrhea consists of 510 stools daily. Denies any diarrhea or abdominal symptoms. Upon initial presentation, patient initially w/ O2 sat in high 80's, placed on NC O2 which improved sats. ABG with pH 7.46, PCO2 32,PO2 70. Troponin negative, EKG w/ sinus rhythm with no sign of acute ischemia or arrhythmia. CTA revealed PE; patient started on therapeutic Lovenox after clearance by on-call NS Dr. Garnica. Patient also started on empiric CAP treatment w/ Azithro and Ceftriaxone for possible pneumonia. Sepsis workup initiated. Blood cultures positive for GP bacteremia and ID consulted for pneumonia and bacteremia. Review of Systems ROS Limitations: Poor Historian Constitutional: COMPLAINS OF: Fever, Chills, DENIES: Diaphoretic episodes, Fatigue, Weight gain, Weight loss, Dizziness, Change in appetite, Night Sweats Endocrine: DENIES: Abnorml menstrual pattern, Heat/cold intolerance, Polydipsia , Polyuria, Polyphagia Eyes: DENIES: Blurred vision, Diplopia, Eye inflammation, Eye pain, Vision loss , Photosensitivity, Double Vision Ears, nose, mouth, throat: DENIES: Tinnitus, Hearing loss, Vertigo, Nasal discharge, Oral lesions, Throat pain, Hoarseness, Ear Pain, Running Nose, Epistaxis, Sinus Pain, Toothache, Odynophagia Respiratory: COMPLAINS OF: Cough, Wheezing, Sputum production, Shortness of breath, DENIES: Apneas, Snoring, Hemoptysis Cardiovascular: COMPLAINS OF: Dyspnea on Exertion, Orthopnea, DENIES: Chest pain, Palpitations, Syncope, PND, Lower Extremity Edema, Claudication Gastrointestinal: DENIES: Abdominal pain, Black stools, Bloody stools, Constipation, Diarrhea, Nausea, Vomiting, Difficulty Swallowing, Anorexia Genitourinary: DENIES: Abnormal vaginal bleeding, Dysmenorrhea, Dyspareunia, Sexual dysfunction, Urinary frequency, Urinary incontinence, Urgency, Hematuria , Dysuria, Nocturia, Vaginal discharge Musculoskeletal: DENIES: Joint pain, Muscle aches, Stiffness, Joint Swelling, Back pain, Neck pain Integumentary: DENIES: Abnormal pigmentation, Pruritus, Rash, Nail changes, Breast masses, Breast skin changes, Nipple discharge Hematologic/lymphatic: DENIES: Bruising, Lymphadenopathy Immunologic/allergic: DENIES: Eczema, Urticaria Neurologic: DENIES: Abnormal gait, Headache, Localized weakness, Paresthesias, Seizures, Speech Problems, Tremor, Poor Balance Psychiatric: COMPLAINS OF: Anxiety, DENIES: Confusion, Mood changes, Depression, Hallucinations, Agitation, Suicidal Ideation, Homicidal Ideation, Delusions Except as stated in HPI: all other systems reviewed are Neg Past Family Social History Allergies: Coded Allergies: No Known Allergies (Verified , 10/02/16) Past Medical History - CAD ("several" MIs, stent x 1) - HTN - Hyperlipidemia - 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 Recommended Prevnar 02/21/16 but patient declined - Shingles-recommended 02/21/16 but patient declined - Tetanus: thinks it's been about 10 years. Will need another one Past Surgical History - Tonsillectomy () - Exploratory abdominal surgery for persistent emesis - cyst/polyp removed from intestine (1965) - Exploratory surgery for ovarian cyst removal () - C-sections (1974, 1976) - Cholecystectomy (1975) - Surgery on left foot to remove bone chip related to work accident () - Bilateral carpal tunnel surgery () - Hysterectomy & RSO - secondary to menorrhagia (1997) - Cervical spine surgery with cadaver bone graft and steal plate placement ( ) - LSO - secondary to ovarian cancer (2011) Reported Medications Reported Meds & Active Scripts Active Walker with Front Wheels (Device) 1 Mis Mis 1 Ea .ROUTE DIRECTED Amlodipine (Amlodipine Besylate) 10 Mg Tab 10 Mg PO DAILY Lantus Solostar Pen Inj (Insulin Glargine) 300 Unit/3 Ml Pen 80 Units SQ DIRECTED take 80 units in the morning and 70 units at bedtime Carvedilol 12.5 Mg Tab 12.5 Mg PO BID Humalog Kwikpen Pen Inj (Insulin Lispro (Human) Inj) 300 Unit/3 Ml Pen 1 Units SQ DIRECTED Max dose at bedtime: 0 units; sugar <70 (0) units, sugar 150-199(2)units sugar 200-249 (4)units sugar 250-299 (7)units sugar 300-349 (10)units sugars>349 (12)units Fluoxetine (Fluoxetine HCl) 40 Mg Cap 40 Cap PO DAILY Atrovent HFA 12.9 GM Inh (Ipratropium Dexter) 17 Mcg/Act Aer 2 Puff INH QID Duoneb (Ipratropium-Albuterol Neb) 0.5-2.5 Mg/3 Ml Neb 1 Nebule INH Q6HR NEB Walker with Front Wheels (Device) 1 Mis Mis 1 Ea .ROUTE DIRECTED Isosorbide Mononitrate ER (Isosorbide Mononitrate) 60 Mg Tab 60 Mg PO DAILY Reported Ventolin Hfa 18 GM Inh (Albuterol Sulfate) 90 Mcg/Act Aer 1 Puff INH Q4H PRN Ferrous Sulfate 325 Mg Tab 650 Mg PO DAILY Nexium (Esomeprazole DR) 20 Mg Capdr 20 Mg PO DAILY Lisinopril 20 Mg Tab 20 Mg PO BID Metformin (Metformin HCl) 1,000 Mg Tab 1,000 Mg PO BIDPC With meals Active Ordered Medications Current Medications Medications (Trade) Dose Ordered Sig/Bruce Route Start Time Stop Time Status Last Admin (NS Flush) 2 ml UNSCH PRN IV FLUSH 11/07/16 23:30 (NS Flush) 2 ml BID IV FLUSH 11/08/16 09:00 11/08/16 21:00 (Tylenol) 650 mg Q4H PRN PO 11/07/16 23:30 11/09/16 11:07 (Zofran Inj) 4 mg Q6H PRN IVP 11/07/16 23:30 Naloxone HCl 0.4 mg 0.4 mg UNSCH PRN IV 11/07/16 23:30 Cefepime HCl 2000 mg/Sodium Chloride 100 ml @ 200 mls/hr Q8H IV 11/08/16 00:00 11/09/16 08:20 (Levaquin 750 Mg Premix Inj) 150 ml @ 100 mls/hr Q24H IV 11/08/16 00:00 11/09/16 00:10 (SoluMEDROL INJ) 40 mg Q12H IV 11/08/16 13:00 11/09/16 11:56 (Norvasc) 10 mg DAILY PO 11/08/16 09:00 11/09/16 08:18 (Coreg) 12.5 mg BID PO 11/07/16 23:30 11/09/16 08:17 (Ferrous Sulfate) 325 mg BID PO 11/08/16 09:00 11/09/16 08:17 (PROzac) 40 mg DAILY PO 11/08/16 09:00 11/09/16 08:17 (Imdur) 60 mg DAILY PO 11/08/16 09:00 11/09/16 08:17 (Prinivil) 20 mg BID PO 11/07/16 23:30 11/09/16 08:18 (D50w (Vial) Inj) 25 ml UNSCH PRN IV PUSH 11/08/16 00:00 (Glucagon Inj) 1 mg UNSCH PRN OTHER 11/08/16 00:00 Atorvastatin Calcium 40 mg 40 mg DAILY PO 11/08/16 09:00 11/09/16 08:17 (NS + KCl 20 Meq Inj) 1,000 ml @ 100 mls/hr Q10H IV 11/08/16 02:30 11/08/16 23:02 (Apresoline) 10 mg Q8H PRN PO 11/08/16 07:00 (Levemir Inj) 50 units Q12HR SQ 11/08/16 09:00 11/09/16 08:17 Rivaroxaban 15 mg 15 mg BID PO 11/08/16 21:00 11/09/16 08:18 Pharmacy Profile Note 0 ml @ 0 mls/hr UNSCH OTHER 11/09/16 12:00 (Vancomycin Inj/ NS 500 ml Inj) 517.5 ml @ 250 mls/hr Q18H IV 11/10/16 05:00 Miscellaneous Information SPECIFIC LAB TO BE LUCHO... ONCE ONCE .XX 11/11/16 16:45 11/11/16 16:46 (Protonix) 40 mg Q24H PO 11/09/16 23:00 Family History reviewed and NC to current ID problems. - Father: (lung cancer) - Mother: (pulmonary disease), CHF, DM - Sister 1: cervical, thyroid and lung cancer - Sister 2: ovarian and colon cancer - Brothers: lung cancer Social History - Tobacco: former (quit 2006, 2 PPD x 40 years) - EtOH: denies - Recreational drugs: denies - On disability. Physical Exam Vital Signs Vital Signs Date Time Temp Pulse Resp B/P Pulse Ox O2 Delivery O2 Flow Rate FiO2 11/09/16 12:00 98.3 68 26 149/69 96 11/09/16 09:30 Nasal Cannula 3.00 11/09/16 08:00 65 11/09/16 08:00 98.3 70 32 166/78 95 Automatic Cuff 11/09/16 07:15 Nasal Cannula 3.00 11/09/16 04:00 97.8 77 18 166/94 93 11/09/16 00:00 97.4 64 18 151/71 94 11/08/16 23:30 Nasal Cannula 3.00 11/08/16 21:39 95 Nasal Cannula 3.00 11/08/16 20:05 90 11/08/16 20:00 97.8 81 18 154/70 96 Physical Exam GENERAL: Obese, well-developed patient, in no apparent distress. SKIN: No rashes, ecchymoses or lesions. Cool and dry. HEAD: Atraumatic. Normocephalic. No temporal or scalp tenderness. EYES: Pupils equal round and reactive. Extraocular motions intact. No scleral icterus. No injection or drainage. ENT: Nose without bleeding, purulent drainage or septal hematoma. Throat without erythema, tonsillar hypertrophy or exudate. Uvula midline. Airway patent. Large neck. NECK: Trachea midline. Supple, nontender, no meningeal signs. CARDIOVASCULAR: RRR, No murmur. RESPIRATORY: Bilateral wheezing noted, decreased air entry. GASTROINTESTINAL: Abdomen soft, non-tender, nondistended. Old surgical scars ok. MUSCULOSKELETAL: Extremities without clubbing, cyanosis, or edema. NEUROLOGICAL: Awake and alert. Grossly non focal Psych: cooperative, anxious IV line sites with no e.o infection. Laboratory Laboratory Tests Test 11/08/16 11/09/16 21:30 07:11 Stool C. difficile Toxin (PCR) NEGATIVE Stl C. difficile Toxin PRESUMPTIVE Epiderm 027 NEGATIVE White Blood Count 11.5 Red Blood Count 3.91 Hemoglobin 10.7 Hematocrit 32.5 Mean Corpuscular Volume 83.0 Mean Corpuscular Hemoglobin 27.2 Mean Corpuscular Hemoglobin 32.8 Concent Red Cell Distribution Width 14.4 Platelet Count 325 Mean Platelet Volume 8.0 Neutrophils (%) (Auto) 91.1 Lymphocytes (%) (Auto) 5.5 Monocytes (%) (Auto) 3.3 Eosinophils (%) (Auto) 0.0 Basophils (%) (Auto) 0.1 Neutrophils # (Auto) 10.5 Lymphocytes # (Auto) 0.6 Monocytes # (Auto) 0.4 Eosinophils # (Auto) 0.0 Basophils # (Auto) 0.0 CBC Comment DIFF FINAL Differential Comment Sodium Level 137 Potassium Level 4.7 Chloride Level 103 Carbon Dioxide Level 27.8 Anion Gap 6 Blood Urea Nitrogen 21 Creatinine 0.93 Estimat Glomerular Filtration 60 Rate Random Glucose 228 Calcium Level 9.4 Total Bilirubin 0.3 Aspartate Amino Transf 14 (AST/SGOT) Alanine Aminotransferase 22 (ALT/SGPT) Alkaline Phosphatase 135 Total Protein 7.2 Albumin 2.9 Date/Time Procedure Status Source Growth 11/09/16 15:45 Aerobic Blood Culture Received Blood Peripheral Pending 11/09/16 15:45 Anaerobic Blood Culture Received Blood Peripheral Pending 11/08/16 21:15 Gram Stain - Final Resulted Sputum Expectorated Sputum 11/08/16 21:15 Sputum Culture - Preliminary Resulted Sputum Expectorated Sputum RESULTS PENDING 11/07/16 23:15 Legionella Antigen - Final Complete Urine Clean Catch PRESUMPTIVE NEGATIVE FOR LEGIONELLA P... 11/07/16 23:15 Streptococcus pneumoniae Antigen (M - Final Complete Urine Clean Catch PRESUMPTIVE NEGATIVE FOR STREPTOCOCCU... 11/07/16 20:00 Aerobic Blood Culture - Preliminary Resulted Blood Peripheral Staphylococcus Epidermidis 11/07/16 20:00 Anaerobic Blood Culture - Preliminary Resulted Gram Positive Cocci Result Diagram: 11/09/16 0711 11/09/16 0711 Imaging Last Impressions Lower Extremity Ultrasound 11/08/16 0000 Signed Impressions: Service Date/Time: Tuesday, November 08, 2016 07:48 - CONCLUSION: 1. No evidence of deep venous thrombosis. 2. Apparent thrombus in one of the right superficial femoral veins in the calf region. Eddie Judge MD Chest X-Ray 11/07/16 2317 Signed Impressions: Service Date/Time: Monday, November 07, 2016 23:41 - CONCLUSION: Scattered patchy infiltrates. Jay Vazquez MD CT Angiography 11/07/16 0000 Signed Impressions: Service Date/Time: Monday, November 07, 2016 21:20 - CONCLUSION: 1. Small left lower lobe pulmonary embolus. 2. Widespread airspace disease, nonspecific. 3. Coronary artery calcification. 4. 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 Sam Gonzalez MD Assessment and Plan Assessment and Plan Pneumonia: likely CAP, now worsening so Health care organisms to be covered. GP bacteremia: appears to be coag negative staph. Left side PE, Femoral DVT: management per primary. Neck surgical scar with no e.o infection. Leucocytosis: infection, PE, DVT Acute COPD exacerbation. DM2 uncontrolled: sepsis, steroids. Recs: Continue Cefepime IV Continue Vanco IV for now (target 15-20) for pneumonia. Continue Levaquin change to oral (to avoid fluid overload issues. Oral and IV bioavailability is the same for Levaquin and no absorption issues) Will follow neck surgical scar. At present no e/o infection. If bacteremia is persistent will need further workup or if surgical scar appears infected looking on follow up exam. Follow cultures Follow clinically Repeat CXR today in view of worsening shortness of breath. Asked RN to check with RT if breathing treatment can be given based on prn order. Follow CXR. If any clinical change suggest ABG, and pulm consult. Recommend scheduled breathing treatments. Call placed to resident and also the RT as well as RN for pt notified to have breathing treatments changed to scheduled. Karly Jenkins MD November 09, 2016 16:37
--- NOTE | 2016-11-09 18:28 | RADRPT ---
EXAM DATE/TIME: 11/09/2016 17:07 [facility] COMPARISON: CHEST SINGLE AP, November 07, 2016, 23:41. INDICATIONS : Evaluate pneumonia MEDICAL HISTORY : Chronic obstructive pulmonary disease. Asthma SURGICAL HISTORY : Coronary artery stent. Infusaport ENCOUNTER: Subsequent ACUITY: 2 days PAIN SCORE: 0/10 LOCATION: Bilateral chest FINDINGS: Right-sided [id number] tip in superior vena cava. Scattered subsegmental air space disease in the lungs. No effusion or pneumothorax. Tortuous aorta. CONCLUSION: 1. Scattered subsegmental airspace disease in the lungs. Differential diagnosis does include scattere d bronchopneumonia or atelectasis. Findings are similar to November 07. Judd Jenkins MD on November 09, 2016 at 18:24 Board Certified Radiologist. This report was verified electronically.
[2016-11-09] MEDS: RESP: ALBUTEROL 2.5 MG/IPRATROPIUM 0.5 MG NEB (SCH) INH ×2 (20:50→23:58)
[2016-11-09] MEDS: NS + KCL 20 MEQ INJ 1,000 ML IV SCH (21:41)
[2016-11-09] MEDS: PANTOPRAZOLE SOD 40 MG DELAYED RELEASE TAB PO SCH (23:14)
[2016-11-10] VITALS (9 sets, daily range): BP systolic 144–192; BP diastolic 65–94; PULSE 67–80; RESP 18–22; TEMP 98–98.7; O2SAT 91–98
[2016-11-10] MEDS: methylPREDNISolone SOD SUCC 40 MG/1 ML VIAL IV SCH ×2 (00:20→11:38)
[2016-11-10] MEDS: CEFEPIME INJ 2,000 MG in SODIUM CHLORIDE 0.9% INJ 100 ML IV SCH ×2 (00:20→08:50)
[2016-11-10] MEDS: RESP: ALBUTEROL 2.5 MG/IPRATROPIUM 0.5 MG NEB (SCH) INH ×5 (04:59→20:24)
[2016-11-10] MEDS ORDERED: VANCOMYCIN INJ 1,750 MG in SODIUM CHLORID 0.9% 500 ML INJ 500 ML IV SCH (05:00)
[2016-11-10 05:20] LABS: AUTOMATED NEUTROPHIL # 8.8 TH/MM3 (1.8-7.7); BASOPHIL % 0.2 % (0.0-2.0); EOSINOPHIL % 0.1 % (0.0-4.0); HEMATOCRIT 30.9 % (35.0-46.0); HEMO FLAGS DIFF FINAL; LYMPH % 7.5 % (9.0-44.0); LYMPHOCYTE # 0.7 TH/MM3 (1.0-4.8); MEAN CORPUSCULAR HGB CONC 33.7 % (32.0-36.0); NEUT % 89.2 % (16.0-70.0); PLATELET COUNT 335 TH/MM3 (150-450); RED BLOOD COUNT 3.72 MIL/MM3 (4.00-5.30); RED CELL DISTRIBUTION WIDTH 14.2 % (11.6-17.2); WHITE BLOOD COUNT 9.8 TH/MM3 (4.0-11.0)
[2016-11-10 05:49] LABS: POTASSIUM 4.4 MEQ/L (3.5-5.1)
[2016-11-10] MEDS: INSULIN ASPART SUPPLEMENTAL SCALE SQ SCH ×4 (05:58→21:57)
--- NOTE | 2016-11-10 08:47 | HHI.FPPN ---
Subjective Remarks Patient is doing slightly better this morning. She remains tired but she slept okay last night. She remains short of breath. Denies fevers, chills. Objective Vitals Vital Signs Date Time Temp Pulse Resp B/P Pulse Ox O2 Delivery O2 Flow Rate FiO2 11/10/16 08:13 96 Nasal Cannula 2.00 11/10/16 08:00 98.2 68 20 177/76 96 11/10/16 04:00 98.0 73 18 166/75 94 11/10/16 04:00 Nasal Cannula 3.00 11/10/16 00:00 98.7 72 18 150/70 97 11/10/16 00:00 Nasal Cannula 3.00 11/09/16 21:00 96 Nasal Cannula 2.00 11/09/16 20:00 Nasal Cannula 3.00 11/09/16 20:00 98.1 71 18 165/70 95 11/09/16 19:51 76 11/09/16 16:00 98.4 77 26 133/86 95 11/09/16 12:00 98.3 68 26 149/69 96 11/09/16 09:30 Nasal Cannula 3.00 I/O 11/09/16 11/09/16 11/09/16 11/10/16 11/10/16 11/10/16 07:00 15:00 23:00 07:00 15:00 23:00 Intake Total 962 ml 840 ml 552 ml 953 ml Balance 962 ml 840 ml 552 ml 953 ml Intake Oral 240 ml 840 ml 240 ml 240 ml IV Total 722 ml 312 ml 713 ml # Voids 1 5 1 3 # Bowel Movements 0 1 0 0 Result Diagram: 11/10/16 0345 11/10/16 0345 Imaging Last Impressions Chest X-Ray 11/09/16 0000 Signed Impressions: Service Date/Time: Wednesday, November 09, 2016 17:07 - CONCLUSION: 1. Scattered subsegmental airspace disease in the lungs. Differential diagnosis does include scattered bronchopneumonia or atelectasis. Findings are similar to November 07. Judd Jenkins MD Lower Extremity Ultrasound 11/08/16 0000 Signed Impressions: Service Date/Time: Tuesday, November 08, 2016 07:48 - CONCLUSION: 1. No evidence of deep venous thrombosis. 2. Apparent thrombus in one of the right superficial femoral veins in the calf region. Eddie Judge MD CT Angiography 11/07/16 0000 Signed Impressions: Service Date/Time: Monday, November 07, 2016 21:20 - CONCLUSION: 1. Small left lower lobe pulmonary embolus. 2. Widespread airspace disease, nonspecific. 3. Coronary artery calcification. 4. 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 Sam Gonzalez MD Objective Remarks GENERAL: Obese female sitting up in bed. SKIN: Warm and dry, no rashes appreciated. HEENT: Pupils equal and round. No nasal drainage. Nasal cannula in place. MMM. NECK: C-collar in place. HEART: Distant heart sounds with RRR no m/r/g. LUNGS: Decreased breath sounds with diffuse crackles that improve after coughing. ABDOMEN: Soft, NT, ND. EXTREMITIES: No LE edema. No calf tenderness. NEURO: Awake and alert. A/P Assessment and Plan 66 year old female admitted for pulmonary embolism and hospital- acquired pneumonia. Her PE is being treated with Xarelto and her PNA has been treated with Cefepime and Levaquin. ID consulted for gram-positive cocci in blood. Discharge Planning Unclear discharge time table since patient now growing Gram positive cocci in blood. Problem List: (1) Gram-positive bacteremia Status: Acute Plan: Infectious disease consult Continue antibiotics as below Add vancomycin 5/7 (target 15-20) for pneumonia Blood cultures /7 pending If bacteremia is persistent, will need further workup (2) PE (pulmonary thromboembolism) Status: Acute Plan: Patient presenting with shortness of breath found to have small left lower lobe PE. Initially she was anticoagulated on therapeutic Lovenox but has since been converted to Xarelto (15 mg PO BID x 3 weeks then 20 mg daily). - Supplemental O2 PRN - 2D echo with EF 30-35% with normal wall motion and elevated PA pressure. Already on BB and TYLER-inhibitor (3) Pneumonia Status: Acute Plan: Continue empiric treatment with Levaquin 750 mg PO daily, Cefepime 2 g Q8H, and vancomycin per infectious disease - Solumedrol 40 mg IV Q12H - DuoNeb Q6H scheduled - Albuterol nebs Q2H PRN - Supplemental O2 PRN - Sputum culture pending - Blood cultures 5/7 pending - Legionella and pneumococcal urinary antigens negative (4) Hypertension Status: Chronic Plan: Continue home Amlodipine, carvedilol, and Lisinopril. - Hydralazine PRN (5) Coronary artery disease Status: Chronic Plan: Continue home carvedilol, Lisinopril, Imdur, and Lipitor. (6) Diabetes mellitus Status: Chronic Plan: Hold home Metformin. Continue Levemir 50 units BID. SSI per protocol. (7) Anxiety and depression Status: Chronic Plan: Continue home Fluoxetine 40 mg daily. (8) S/P cervical spinal fusion Status: Resolved Plan: Patient recently underwent C3-4 and C4-5 anterior cervical fusion with removal of C4-6 cervical plate 10/02. Patient reports she is doing well at this time that she plans to have follow-up x-rays 11/11 and potential removal of neck brace 11/13 after following up with Dr. Lares. Caution if potential need for intubation occurs. (9) Diarrhea Status: Acute Plan: Bedside Hemoccult negative. C. diff studies negative. (10) Fluids, Electrolytes, and Nutrition Status: Acute Plan: - Fluids: Tolerating PO - Electrolytes: WNL. Monitor and replace as needed - Nutrition: Diabetic diet - DVT prophylaxis: On Xarelto for PE - GI prophylaxis: On Protonix since on steroids Problem Qualifiers (1) Coronary artery disease: Qualified Code: I25.10 - Coronary artery disease involving ramona heart without angina pectoris, unspecified vessel or lesion type (2) Diabetes mellitus: Qualified Code: E11.40 - Type 2 diabetes mellitus with diabetic neuropathy, unspecified mcc insulin use status Fidencio Curtis MD R2 November 10, 2016 08:47
[2016-11-10] MEDS: FERROUS SULFATE 325 MG (65 MG ELEMENTAL IRON) TAB PO SCH ×2 (08:49→22:04)
[2016-11-10] MEDS: RIVAROXABAN 15 MG TAB PO SCH ×2 (08:49→22:04)
[2016-11-10] MEDS: LISINOPRIL 20 MG TAB PO SCH ×2 (08:49→22:04)
[2016-11-10] MEDS: ATORVASTATIN 40 MG TAB PO SCH (08:49)
[2016-11-10] MEDS: CARVEDILOL 12.5 MG TAB PO SCH ×2 (08:49→22:04)
[2016-11-10] MEDS: ISOSORBIDE MONONITRATE 60 MG TAB PO SCH (08:49)
[2016-11-10] MEDS: LEVOFLOXACIN 500 MG TAB PO SCH (08:49)
[2016-11-10] MEDS: FLUoxetine HCL 20 MG CAP PO SCH (08:49)
[2016-11-10] MEDS: SODIUM CHLORIDE 0.9% FLUSH 10 ML FLUSH IV FLUSH SCH ×2 (08:50→21:00)
[2016-11-10] MEDS: INSULIN DETEMIR 100 UNITS/ML VIAL SQ SCH ×2 (08:50→22:04)
[2016-11-10] MEDS: ACETAMINOPHEN 325 MG TAB PO PRN ×3 (08:50→17:29)
[2016-11-10] MEDS: NS + KCL 20 MEQ INJ 1,000 ML IV SCH ×3 (08:50→22:06)
--- NOTE | 2016-11-10 16:59 | HHI.IDPN ---
Subjective Subjective Remarks Ms. Sewell is a 66 yo CF with PMH of recent cervical fusion n September 2016 by . Her PMHx is also significant for CAD, COPD, HTN who presents with shortness of breath. Patient reports that she has been unable to catch her breath for the past week, and has had gradually worsening respiratory function. Patient states due to the severity of her shortness of breath she has been unable to walk/talk/eat adequately/ambulate to the shower. Patient reports history of COPD and need for chronic use of Albuterol and Ipratropium nebulizer and inhalers at home. Patient reports no relief with usual measures leading to the ER visit. Patient also reports coughing up green/yellow sputum for ~1 day; she now reports coughing flecks of blood. Patient states that she took her temperature and had a fever to 101.1F over the past couple days (ranged from 99 - 101F). Patient reports diarrhea for ~ 1 month. Patient states having black stools but she attributes this to taking iron chronically. Patient states her diarrhea consists of 510 stools daily. Denies any diarrhea or abdominal symptoms. Upon initial presentation, patient initially w/ O2 sat in high 80's, placed on NC O2 which improved sats. ABG with pH 7.46, PCO2 32,PO2 70. Troponin negative, EKG w/ sinus rhythm with no sign of acute ischemia or arrhythmia. CTA revealed PE; patient started on therapeutic Lovenox after clearance by on-call NS Dr. Garnica. Patient also started on empiric CAP treatment w/ Azithro and Ceftriaxone for possible pneumonia. Sepsis workup initiated. Blood cultures positive for GP bacteremia and ID consulted for pneumonia and bacteremia. Overnight events reviewed No fevers No rash No diarrhea Able to talk comfortably Breathing better. Antibiotics Cefepime IV Vanco IV Levaquin oral Lines Line sites with no e.o infection Past Medical History reviewed Allergies: Coded Allergies: No Known Allergies (Verified , 10/02/16) Objective . Vital Signs Date Time Temp Pulse Resp B/P Pulse Ox O2 Delivery O2 Flow Rate FiO2 11/10/16 12:00 98.5 68 18 144/65 94 11/10/16 08:13 96 Nasal Cannula 2.00 11/10/16 08:00 Nasal Cannula 3.00 11/10/16 08:00 98.2 68 20 177/76 96 11/10/16 08:00 67 11/10/16 04:00 98.0 73 18 166/75 94 11/10/16 04:00 Nasal Cannula 3.00 11/10/16 00:00 98.7 72 18 150/70 97 11/10/16 00:00 Nasal Cannula 3.00 11/09/16 21:00 96 Nasal Cannula 2.00 11/09/16 20:00 Nasal Cannula 3.00 11/09/16 20:00 98.1 71 18 165/70 95 11/09/16 19:51 76 11/09/16 11/09/16 11/10/16 15:00 23:00 07:00 Intake Total 840 ml 552 ml 953 ml Balance 840 ml 552 ml 953 ml Intake Oral 840 ml 240 ml 240 ml IV Total 312 ml 713 ml # Voids 5 1 3 # Bowel Movements 1 0 0 . Laboratory Tests Test 11/09/16 11/10/16 07:11 03:45 White Blood Count 11.5 TH/MM3 9.8 TH/MM3 Red Blood Count 3.91 MIL/MM3 3.72 MIL/MM3 Hemoglobin 10.7 GM/DL 10.4 GM/DL Hematocrit 32.5 % 30.9 % Mean Corpuscular Volume 83.0 FL 83.0 FL Mean Corpuscular Hemoglobin 27.2 PG 28.0 PG Mean Corpuscular Hemoglobin 32.8 % 33.7 % Concent Red Cell Distribution Width 14.4 % 14.2 % Platelet Count 325 TH/MM3 335 TH/MM3 Mean Platelet Volume 8.0 FL 7.9 FL Neutrophils (%) (Auto) 91.1 % 89.2 % Lymphocytes (%) (Auto) 5.5 % 7.5 % Monocytes (%) (Auto) 3.3 % 3.0 % Eosinophils (%) (Auto) 0.0 % 0.1 % Basophils (%) (Auto) 0.1 % 0.2 % Neutrophils # (Auto) 10.5 TH/MM3 8.8 TH/MM3 Lymphocytes # (Auto) 0.6 TH/MM3 0.7 TH/MM3 Monocytes # (Auto) 0.4 TH/MM3 0.3 TH/MM3 Eosinophils # (Auto) 0.0 TH/MM3 0.0 TH/MM3 Basophils # (Auto) 0.0 TH/MM3 0.0 TH/MM3 CBC Comment DIFF FINAL DIFF FINAL Differential Comment Laboratory Tests Test 11/09/16 11/10/16 07:11 03:45 Sodium Level 137 MEQ/L 138 MEQ/L Potassium Level 4.7 MEQ/L 4.4 MEQ/L Chloride Level 103 MEQ/L 106 MEQ/L Carbon Dioxide Level 27.8 MEQ/L 24.0 MEQ/L Anion Gap 6 MEQ/L 8 MEQ/L Blood Urea Nitrogen 21 MG/DL 23 MG/DL Creatinine 0.93 MG/DL 0.81 MG/DL Estimat Glomerular Filtration 60 ML/MIN 70 ML/MIN Rate Random Glucose 228 MG/DL 136 MG/DL Calcium Level 9.4 MG/DL 9.2 MG/DL Total Bilirubin 0.3 MG/DL Aspartate Amino Transf 14 U/L (AST/SGOT) Alanine Aminotransferase 22 U/L (ALT/SGPT) Alkaline Phosphatase 135 U/L Total Protein 7.2 GM/DL Albumin 2.9 GM/DL Microbiology Date/Time Procedure Status Source Growth 11/07/16 19:50 Aerobic Blood Culture - Preliminary Resulted Blood Peripheral NO GROWTH IN 3 DAYS 11/07/16 19:50 Anaerobic Blood Culture - Preliminary Resulted Blood Peripheral NO GROWTH IN 3 DAYS 11/07/16 20:00 Aerobic Blood Culture - Preliminary Resulted Blood Peripheral Staphylococcus Epidermidis 11/07/16 20:00 Anaerobic Blood Culture - Preliminary Resulted Staph Sp Coagulase Negative 11/07/16 23:15 Legionella Antigen - Final Complete Urine Clean Catch PRESUMPTIVE NEGATIVE FOR LEGIONELLA P... 11/07/16 23:15 Streptococcus pneumoniae Antigen (M - Final Complete Urine Clean Catch PRESUMPTIVE NEGATIVE FOR STREPTOCOCCU... 11/08/16 21:15 Gram Stain - Final Resulted Sputum Expectorated Sputum 11/08/16 21:15 Sputum Culture - Preliminary Resulted Sputum Expectorated Sputum HEAVY GROWTH NORMAL RESPIRATORY TSERING... 11/09/16 15:36 Aerobic Blood Culture - Preliminary Resulted Blood Peripheral NO GROWTH IN 1 DAY 11/09/16 15:36 Anaerobic Blood Culture - Preliminary Resulted Blood Peripheral NO GROWTH IN 1 DAY 11/09/16 15:45 Aerobic Blood Culture - Preliminary Resulted Blood Peripheral NO GROWTH IN 1 DAY 11/09/16 15:45 Anaerobic Blood Culture - Preliminary Resulted Blood Peripheral NO GROWTH IN 1 DAY Imaging Last Impressions Chest X-Ray 11/09/16 0000 Signed Impressions: Service Date/Time: Wednesday, November 09, 2016 17:07 - CONCLUSION: 1. Scattered subsegmental airspace disease in the lungs. Differential diagnosis does include scattered bronchopneumonia or atelectasis. Findings are similar to November 07. Judd Jenkins MD Lower Extremity Ultrasound 11/08/16 0000 Signed Impressions: Service Date/Time: Tuesday, November 08, 2016 07:48 - CONCLUSION: 1. No evidence of deep venous thrombosis. 2. Apparent thrombus in one of the right superficial femoral veins in the calf region. Eddie Judge MD CT Angiography 11/07/16 0000 Signed Impressions: Service Date/Time: Monday, November 07, 2016 21:20 - CONCLUSION: 1. Small left lower lobe pulmonary embolus. 2. Widespread airspace disease, nonspecific. 3. Coronary artery calcification. 4. 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 Sam Gonzalez MD Physical Exam GENERAL: Obese, well-developed patient, in no apparent distress. SKIN: No rashes, ecchymoses or lesions. Cool and dry. HEAD: Atraumatic. Normocephalic. No temporal or scalp tenderness. EYES: Pupils equal round and reactive. Extraocular motions intact. No scleral icterus. No injection or drainage. ENT: Nose without bleeding, purulent drainage or septal hematoma. Throat without erythema, tonsillar hypertrophy or exudate. Uvula midline. Airway patent. Large neck. NECK: Trachea midline. Supple, nontender, no meningeal signs. CARDIOVASCULAR: RRR, No murmur. RESPIRATORY: Bilateral wheezing noted, decreased air entry. Much improved air entry today. GASTROINTESTINAL: Abdomen soft, non-tender, nondistended. Old surgical scars ok. MUSCULOSKELETAL: Extremities without clubbing, cyanosis, or edema. NEUROLOGICAL: Awake and alert. Grossly non focal Psych: cooperative, anxious IV line sites with no e.o infection. Assessment & Plan Remarks Pneumonia: likely CAP, now worsening so Health care organisms to be covered. Coag neg staph: likely contaminant. Left side PE, Femoral DVT: management per primary. Neck surgical scar with no e.o infection. Leucocytosis: infection, PE, DVT Acute COPD exacerbation. DM2 uncontrolled: sepsis, steroids. Recs: DC Cefepime IV DC Vanco IV Continue Levaquin oral Follow cultures Follow clinically Check CXR in am. If clinically improved ok to DC home in am on oral levaquin. Please probation counselor patient about COPD management, appropriate use of inhaler teaching etc to prevent recurrences of COPD exacerbation and also prevent readmissions. Will sign off. Please call me sooner if any change in clinical condition. Karly Jenkins MD November 10, 2016 16:59
[2016-11-10] MEDS: PANTOPRAZOLE SOD 40 MG DELAYED RELEASE TAB PO SCH (22:05)
[2016-11-11] VITALS (10 sets, daily range): BP systolic 155–189; BP diastolic 72–85; PULSE 67–79; RESP 18–20; TEMP 97.5–98.2; O2SAT 94–97
[2016-11-11] MEDS: methylPREDNISolone SOD SUCC 40 MG/1 ML VIAL IV SCH ×2 (00:04→11:50)
[2016-11-11] MEDS: RESP: ALBUTEROL 2.5 MG/IPRATROPIUM 0.5 MG NEB (SCH) INH ×6 (00:06→20:24)
[2016-11-11] MEDS: ACETAMINOPHEN 325 MG TAB PO PRN ×5 (03:42→23:04)
[2016-11-11] MEDS: hydrALAZINE HCL 10 MG TAB PO PRN ×2 (04:29→16:36)
[2016-11-11] MEDS: INSULIN ASPART SUPPLEMENTAL SCALE SQ SCH ×4 (06:19→20:49)
[2016-11-11 07:25] LABS: AUTOMATED NEUTROPHIL # 7.8 TH/MM3 (1.8-7.7); BASOPHIL % 0.3 % (0.0-2.0); EOSINOPHIL % 0.1 % (0.0-4.0); HEMATOCRIT 33.5 % (35.0-46.0); HEMO FLAGS DIFF FINAL; LYMPH % 8.7 % (9.0-44.0); LYMPHOCYTE # 0.8 TH/MM3 (1.0-4.8); MEAN CELL VOLUME 82.6 FL (80.0-100.0); MEAN CORPUSCULAR HEMOGLOBIN 26.9 PG (27.0-34.0); MEAN CORPUSCULAR HGB CONC 32.6 % (32.0-36.0); MONO % 4.2 % (0.0-8.0); NEUT % 86.7 % (16.0-70.0); PLATELET COUNT 339 TH/MM3 (150-450); RED BLOOD COUNT 4.05 MIL/MM3 (4.00-5.30); RED CELL DISTRIBUTION WIDTH 14.2 % (11.6-17.2)
[2016-11-11 07:59] LABS: ALT (GPT) 29 U/L (10-53); ANION GAP 9 MEQ/L (5-15); AST (GOT) 24 U/L (15-37); BICARBONATE 27.1 MEQ/L (21.0-32.0); BLOOD UREA NITROGEN 17 MG/DL (7-18); CHLORIDE 102 MEQ/L (98-107); GLOMERULAR FILTRATION RATE 98 ML/MIN (>89); SODIUM (NA) 138 MEQ/L (136-145)
[2016-11-11 08:01] LABS: ALKALINE PHOSPHATASE 117 U/L (45-117); TOTAL BILIRUBIN ADULT 0.2 MG/DL (0.2-1.0)
--- NOTE | 2016-11-11 08:04 | HHI.FPPN ---
Subjective Remarks Patient seen and examined this am. BP elevated this am. On 3 L nasal canula 96% . Feels SOB walking to and from the bathroom. Agreed to go to SNF. Was supposed to get out patient x-ray by Dr. Ford today. Feels week on her legs, states she has fallen at home recently due to weakness in her legs. Objective Vitals Vital Signs Date Time Temp Pulse Resp B/P Pulse Ox O2 Delivery O2 Flow Rate FiO2 11/11/16 07:34 96 Nasal Cannula 3.00 11/11/16 06:25 97.7 73 20 172/79 96 11/11/16 04:00 Nasal Cannula 3.00 11/11/16 03:27 97 Nasal Cannula 3.00 11/11/16 00:09 96 Nasal Cannula 2.00 11/11/16 00:00 Nasal Cannula 3.00 11/11/16 00:00 98.2 73 20 160/72 97 11/10/16 20:27 91 Nasal Cannula 2.00 11/10/16 20:00 Nasal Cannula 3.00 11/10/16 20:00 98.3 80 22 192/94 96 11/10/16 19:58 80 11/10/16 16:00 98.6 70 18 158/70 98 11/10/16 12:00 98.5 68 18 144/65 94 11/10/16 08:13 96 Nasal Cannula 2.00 11/10/16 08:00 Nasal Cannula 3.00 11/10/16 08:00 98.2 68 20 177/76 96 11/10/16 08:00 67 I/O 11/10/16 11/10/16 11/10/16 11/11/16 11/11/16 11/11/16 06:59 14:59 22:59 06:59 14:59 22:59 Intake Total 953 ml 1195 ml 977 ml 920 ml Balance 953 ml 1195 ml 977 ml 920 ml Intake Oral 240 ml 480 ml 240 ml 240 ml IV Total 713 ml 715 ml 737 ml 680 ml # Voids 3 3 1 4 # Bowel Movements 0 1 0 0 Result Diagram: 11/11/16 0508 11/10/16 0345 Imaging Last Impressions Chest X-Ray 11/09/16 0000 Signed Impressions: Service Date/Time: Wednesday, November 09, 2016 17:07 - CONCLUSION: 1. Scattered subsegmental airspace disease in the lungs. Differential diagnosis does include scattered bronchopneumonia or atelectasis. Findings are similar to November 07. Judd Jenkins MD Lower Extremity Ultrasound 11/08/16 0000 Signed Impressions: Service Date/Time: Tuesday, November 08, 2016 07:48 - CONCLUSION: 1. No evidence of deep venous thrombosis. 2. Apparent thrombus in one of the right superficial femoral veins in the calf region. Eddie Judge MD CT Angiography 11/07/16 0000 Signed Impressions: Service Date/Time: Monday, November 07, 2016 21:20 - CONCLUSION: 1. Small left lower lobe pulmonary embolus. 2. Widespread airspace disease, nonspecific. 3. Coronary artery calcification. 4. 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 Sam Gonzalez MD Objective Remarks GENERAL: Obese female sitting up in bed. SKIN: Warm and dry, no rashes appreciated. HEENT: Pupils equal and round. No nasal drainage. Nasal cannula in place. MMM. NECK: C-collar in place. HEART: Distant heart sounds with RRR no m/r/g. LUNGS: Decreased breath sounds with diffuse crackles that improve after coughing. ABDOMEN: Soft, NT, ND. EXTREMITIES: No LE edema. No calf tenderness. NEURO: Awake and alert. A/P Assessment and Plan 66 year old female admitted for pulmonary embolism and hospital- acquired pneumonia. Her PE is being treated with Xarelto and her PNA has been treated with Cefepime and Levaquin. ID consulted for gram-positive cocci in blood. Discharge Planning d/c tomorrow to SNF when repeat blood cultures negative x 48 hrs. - [id number] signed - going to [facility] - Oxygen walk test pending discussed with Dr. Wilburn Problem List: (1) Gram-positive bacteremia Status: Resolved Plan: Blood cultures 11/07 grew staph epi Infectious disease: recommend d/c cefepime, d/c vancomycin. Continue Levaquin Repeat Blood cultures 11/09 negative x 1 day Negative urine legionella, negative urine pneumococcal antigen See imaging above. (2) PE (pulmonary thromboembolism) Status: Acute Plan: Patient presenting with shortness of breath found to have small left lower lobe PE. Initially she was anticoagulated on therapeutic Lovenox but has since been converted to Xarelto (15 mg PO BID x 3 weeks then 20 mg daily). - Supplemental O2 PRN - 2D echo with EF 30-35% with normal wall motion and elevated PA pressure. Already on BB and TYLER-inhibitor (3) Pneumonia Status: Acute Plan: Continue empiric treatment with Levaquin 750 mg PO daily, - D/C Cefepime 2 g Q8H, and D/C vancomycin per infectious disease - Solumedrol 40 mg IV Q12H - DuoNeb Q6H scheduled - Albuterol nebs Q2H PRN - Supplemental O2 PRN - Sputum culture normal respiratory growth - Blood cultures 11/09 negative to date - Legionella and pneumococcal urinary antigens negative (4) Hypertension Status: Chronic Plan: Continue home Amlodipine, carvedilol, and Lisinopril. - Hydralazine PRN (5) Coronary artery disease Status: Chronic Plan: Continue home carvedilol, Lisinopril, Imdur, and Lipitor. (6) Diabetes mellitus Status: Chronic Plan: Hold home Metformin. Continue Levemir 50 units BID. SSI per protocol. (7) Anxiety and depression Status: Chronic Plan: Continue home Fluoxetine 40 mg daily. (8) S/P cervical spinal fusion Status: Resolved Plan: Patient recently underwent C3-4 and C4-5 anterior cervical fusion with removal of C4-6 cervical plate 10/02. Patient reports she is doing well at this time that she plans to have follow-up x-rays 11/11 and potential removal of neck brace 11/13 after following up with Dr. Lares. Caution if potential need for intubation occurs. - spoke with Dr. Lares office today (11/11), patient to get PA & lateral cervical x-rays today and follow up with them on the (9) Diarrhea Status: Acute Plan: Bedside Hemoccult negative. C. diff studies negative. (10) Fluids, Electrolytes, and Nutrition Status: Acute Plan: - Fluids: Tolerating PO - Electrolytes: WNL. Monitor and replace as needed - Nutrition: Diabetic diet - DVT prophylaxis: On Xarelto for PE - GI prophylaxis: On Protonix since on steroids Problem Qualifiers (1) Coronary artery disease: Qualified Code: I25.10 - Coronary artery disease involving [place] heart without angina pectoris, unspecified vessel or lesion type (2) Diabetes mellitus: Qualified Code: E11.40 - Type 2 diabetes mellitus with diabetic neuropathy, unspecified ocean transportation intermediary insulin use status Sugey Junior MD R3 November 11, 2016 08:04
[2016-11-11] MEDS: SODIUM CHLORIDE 0.9% FLUSH 10 ML FLUSH IV FLUSH SCH ×2 (09:00→20:52)
[2016-11-11] MEDS: LISINOPRIL 20 MG TAB PO SCH ×2 (09:29→20:51)
[2016-11-11] MEDS: FERROUS SULFATE 325 MG (65 MG ELEMENTAL IRON) TAB PO SCH ×2 (09:31→20:50)
[2016-11-11] MEDS: ATORVASTATIN 40 MG TAB PO SCH (09:31)
[2016-11-11] MEDS: ISOSORBIDE MONONITRATE 60 MG TAB PO SCH (09:31)
[2016-11-11] MEDS: FLUoxetine HCL 20 MG CAP PO SCH (09:31)
[2016-11-11] MEDS: CARVEDILOL 12.5 MG TAB PO SCH ×2 (09:31→20:50)
[2016-11-11] MEDS: LEVOFLOXACIN 500 MG TAB PO SCH (09:31)
[2016-11-11] MEDS: RIVAROXABAN 15 MG TAB PO SCH ×2 (09:31→20:51)
[2016-11-11] MEDS: NS + KCL 20 MEQ INJ 1,000 ML IV SCH ×2 (09:32→20:51)
[2016-11-11] MEDS: INSULIN DETEMIR 100 UNITS/ML VIAL SQ SCH ×2 (09:37→20:50)
[2016-11-11] MEDS ORDERED: PHARMACY ORDERED LAB ONE (16:45)
--- NOTE | 2016-11-11 16:48 | RADRPT ---
EXAM DATE/TIME: 11/11/2016 15:52 [place] COMPARISON: [facility]ERVICAL [facility]), October 02, 2016, 9:18. INDICATIONS : Evaluate cervical stability and hardware. Post cervical surgery. MEDICAL HISTORY : Myocardial infarction. Congestive heart failure. Hypercholesterolemia. Pulmonary embolism. ACDF. CAD. Chest pain. HTN. COPD. Asthma. GERD. Ovarian cysts. Carinoma, ovarian. Acute renal failure. Renal ca lculi. Arthritis. Osteoarthritis. Diabetes. Fibromyalga. Depression. Anxiety. SURGICAL HISTORY : Tonsillectomy.Coronary artery stent. Cholecystectomy.Cardiac cath.Appendectomy. Hysterectomy. Bilater al S&O. section. Left foot. Cervical. Cadavir surgery neck. Chemotherapy. Blood transfusions . Carpel tunnel. ENCOUNTER: Subsequent ACUITY: 3 weeks PAIN SCORE: 0/10 LOCATION: Cervical. FINDINGS: Two projection examination was performed. There is normal alignment and curvature of the vertebral b odies down to the level of C7. Anterior fusion plate C3-C5. Intervertebral disc devices are noted C3- 4 and C4-5 levels. The atlanto-axial articulation is intact. CONCLUSION: 1. Anterior fusion C3-C5. Jay Vazquez MD on November 11, 2016 at 16:44 Board Certified Radiologist. This report was verified electronically.
[2016-11-11] MEDS: PANTOPRAZOLE SOD 40 MG DELAYED RELEASE TAB PO SCH (23:04)
[2016-11-12] VITALS (8 sets, daily range): BP systolic 147–191; BP diastolic 70–92; PULSE 62–73; RESP 18–20; TEMP 97.9–98.6; O2SAT 18–98
[2016-11-12] MEDS: RESP: ALBUTEROL 2.5 MG/IPRATROPIUM 0.5 MG NEB (SCH) INH ×4 (00:16→12:51)
[2016-11-12] MEDS: methylPREDNISolone SOD SUCC 40 MG/1 ML VIAL IV SCH (02:03)
[2016-11-12] MEDS: hydrALAZINE HCL 10 MG TAB PO PRN (02:03)
[2016-11-12] MEDS: NS + KCL 20 MEQ INJ 1,000 ML IV SCH (05:03)
[2016-11-12] MEDS: ACETAMINOPHEN 325 MG TAB PO PRN ×3 (05:04→14:35)
[2016-11-12] MEDS: INSULIN ASPART SUPPLEMENTAL SCALE SQ SCH ×2 (06:49→11:34)
[2016-11-12] MEDS ORDERED: PRED5TAB PO (08:26)
[2016-11-12] MEDS ORDERED: PRED20 PO (08:26)
[2016-11-12] MEDS ORDERED: LEVA750T PO (08:26)
[2016-11-12] MEDS ORDERED: XARE15TA PO (08:26)
[2016-11-12] MEDS ORDERED: XARE20TA PO (08:26)
[2016-11-12] MEDS ORDERED: PRED10 PO (08:26)
--- NOTE | 2016-11-12 08:32 | HHI.DCPOC ---
Discharge Care Plan Diagnosis: (1) PE (pulmonary thromboembolism) (2) Pneumonia (3) Gram-positive bacteremia (4) COPD (chronic obstructive pulmonary disease) Goals to Promote Your Health * To prevent worsening of your condition and complications * To maintain your health at the optimal level Directions to Meet Your Goals Take your medications as prescribed Follow your dietary instruction Follow activity as directed Keep your appointments as scheduled Take your immunizations and boosters as scheduled If your symptoms worsen call your PCP, if no PCP go to Urgent Care Center or Emergency Room Smoking is Dangerous to Your Health. Avoid second hand smoke Call the 24-hour hour crisis hotline for domestic abuse at Fidencio Curtis MD R2 November 12, 2016 08:32
[2016-11-12] MEDS: FERROUS SULFATE 325 MG (65 MG ELEMENTAL IRON) TAB PO SCH (08:54)
[2016-11-12] MEDS: ATORVASTATIN 40 MG TAB PO SCH (08:54)
[2016-11-12] MEDS: RIVAROXABAN 15 MG TAB PO SCH (08:54)
[2016-11-12] MEDS: LISINOPRIL 20 MG TAB PO SCH (08:54)
[2016-11-12] MEDS: ISOSORBIDE MONONITRATE 60 MG TAB PO SCH (08:54)
[2016-11-12] MEDS: CARVEDILOL 12.5 MG TAB PO SCH (08:54)
[2016-11-12] MEDS: LEVOFLOXACIN 500 MG TAB PO SCH (08:54)
[2016-11-12] MEDS: FLUoxetine HCL 20 MG CAP PO SCH (08:55)
[2016-11-12] MEDS: SODIUM CHLORIDE 0.9% FLUSH 10 ML FLUSH IV FLUSH SCH (08:55)
[2016-11-12] MEDS: INSULIN DETEMIR 100 UNITS/ML VIAL SQ SCH (08:56)
[2016-11-12] MEDS ORDERED: GETGO ROLLING W1 MI1 (09:10)
[2016-11-12] MEDS ORDERED: OXYGENTANK NAS.CANULA (09:11)
--- NOTE | 2016-11-12 09:17 | HHI.FPPN ---
Subjective Remarks Patient is doing well this morning. She states she is feeling better, but still weak from being in the hospital. She is agreeable to custodial facility today. Denies fever, chills, chest pain. She is asking for a rolling walker with seat. Objective Vitals Vital Signs Date Time Temp Pulse Resp B/P Pulse Ox O2 Delivery O2 Flow Rate FiO2 11/12/16 04:00 97.9 72 18 184/86 98 11/12/16 00:18 98 Nasal Cannula 3.00 11/12/16 00:00 98.2 65 18 189/88 98 11/11/16 20:26 95 Nasal Cannula 3.00 11/11/16 20:00 98.1 70 18 189/85 97 11/11/16 19:30 Nasal Cannula 3.00 Humidified 11/11/16 16:00 98.0 67 20 185/79 94 11/11/16 12:00 97.5 70 18 155/74 97 11/11/16 11:00 3.00 I/O 11/11/16 11/11/16 11/11/16 11/12/16 11/12/16 11/12/16 07:00 15:00 23:00 07:00 15:00 23:00 Intake Total 920 ml 1791 ml 480 ml 480 ml Output Total 2000 ml 1200 ml Balance 920 ml -209 ml 480 ml -720 ml Intake Oral 240 ml 960 ml 480 ml 480 ml IV Total 680 ml 831 ml Output Urine Total 2000 ml 1200 ml # Voids 4 1 # Bowel Movements 0 1 Result Diagram: 11/11/16 0508 11/11/16 0508 Objective Remarks GENERAL: Obese female sitting up in bed. SKIN: Warm and dry, no rashes appreciated. HEENT: Pupils equal and round. No nasal drainage. Nasal cannula in place. MMM. NECK: C-collar in place. HEART: Distant heart sounds with RRR no m/r/g. LUNGS: Decreased breath sounds with diffuse crackles that improve after coughing. ABDOMEN: Soft, NT, ND. EXTREMITIES: No LE edema. No calf tenderness. NEURO: Awake and alert. A/P Assessment and Plan 66 year old female admitted for pulmonary embolism and hospital- acquired pneumonia. Her PE is being treated with Xarelto and her PNA has been treated with Cefepime and Levaquin. ID consulted for gram-positive cocci in blood. Discharge Planning Discharged to SNF. - [id number] signed - going to [facility] - Oxygen walk test: Home with oxygen Problem List: (1) PE (pulmonary thromboembolism) Status: Acute Plan: Patient presenting with shortness of breath found to have small left lower lobe PE. Initially she was anticoagulated on therapeutic Lovenox but has since been converted to Xarelto (15 mg PO BID x 3 weeks then 20 mg daily). - Supplemental O2 PRN - 2D echo with EF 30-35% with normal wall motion and elevated PA pressure. Already on BB and TYLER-inhibitor (2) Pneumonia Status: Acute Plan: Continue empiric treatment with Levaquin 750 mg PO daily, - D/C Cefepime 2 g Q8H, and D/C vancomycin per infectious disease - Steroid taper at custodial facility: Prednisone 40 mg daily 5 days, then 20 mg 5 days, then 10 mg 5 days, then 5 mg 5 days - DuoNeb Q6H scheduled - Albuterol nebs Q2H PRN - Supplemental O2 PRN - Sputum culture normal respiratory growth - Blood cultures 11/09 negative to date - Legionella and pneumococcal urinary antigens negative History: - Solumedrol 40 mg IV Q12H (3) Hypertension Status: Chronic Plan: Continue home Amlodipine, carvedilol, and Lisinopril. - Hydralazine PRN (4) Coronary artery disease Status: Chronic Plan: Continue home carvedilol, Lisinopril, Imdur, and Lipitor. (5) Diabetes mellitus Status: Chronic Plan: Hold home Metformin. Continue Levemir 50 units BID. SSI per protocol. (6) Anxiety and depression Status: Chronic Plan: Continue home Fluoxetine 40 mg daily. (7) S/P cervical spinal fusion Status: Resolved Plan: Patient recently underwent C3-4 and C4-5 anterior cervical fusion with removal of C4-6 cervical plate 10/02. Patient reports she is doing well at this time that she plans to have follow-up x-rays 11/11 and potential removal of neck brace 11/13 after following up with Dr. Lares. Caution if potential need for intubation occurs. - spoke with Dr. Lares office today (11/11), patient to get PA & lateral cervical x-rays today and follow up with them on the (8) Diarrhea Status: Acute Plan: Bedside Hemoccult negative. C. diff studies negative. (9) Fluids, Electrolytes, and Nutrition Status: Acute Plan: - Fluids: Tolerating PO - Electrolytes: WNL. Monitor and replace as needed - Nutrition: Diabetic diet - DVT prophylaxis: On Xarelto for PE - GI prophylaxis: On Protonix since on steroids (10) Gram-positive bacteremia Status: Resolved Plan: Infectious disease consult Blood cultures 11/07 grew staph epi Likely contaminant Infectious disease: recommend d/c cefepime, d/c vancomycin. Continue Levaquin Repeat Blood cultures 11/09 negative x 2 day Negative urine legionella, negative urine pneumococcal antigen Problem Qualifiers (1) Coronary artery disease: Qualified Code: I25.10 - Coronary artery disease involving [place] heart without angina pectoris, unspecified vessel or lesion type (2) Diabetes mellitus: Qualified Code: E11.40 - Type 2 diabetes mellitus with diabetic neuropathy, unspecified usp insulin use status Fidencio Curtis MD R2 November 12, 2016 09:17
[2016-11-12] MEDS ORDERED: predniSONE 50 MG TAB PO ONE (10:00)
--- NOTE | 2016-11-12 10:34 | HHI.DS ---
Discharge Summary Admission Date November 07, 2016 at 22:08 Discharge Date: November 12, 2016 Admitting Diagnosis acute pneumonia, small PE, respiratory distress (1) PE (pulmonary thromboembolism) Diagnosis: Principal Plan: Patient presenting with shortness of breath found to have small left lower lobe PE. Initially she was anticoagulated on therapeutic Lovenox but has since been converted to Xarelto (15 mg PO BID x 3 weeks then 20 mg daily). - Supplemental O2 PRN - 2D echo with EF 30-35% with normal wall motion and elevated PA pressure. Already on BB and TYLER-inhibitor (2) Pneumonia Diagnosis: Principal Plan: Continue empiric treatment with Levaquin 750 mg PO daily, - D/C Cefepime 2 g Q8H, and D/C vancomycin per infectious disease - Steroid taper at [facility] facility: Prednisone 40 mg daily 5 days, then 20 mg 5 days, then 10 mg 5 days, then 5 mg 5 days - DuoNeb Q6H scheduled - Albuterol nebs Q2H PRN - Supplemental O2 PRN - Sputum culture normal respiratory growth - Blood cultures 11/09 negative to date - Legionella and pneumococcal urinary antigens negative History: - Solumedrol 40 mg IV Q12H (3) Hypertension Diagnosis: Secondary Plan: Continue home Amlodipine, carvedilol, and Lisinopril. - Hydralazine PRN (4) Coronary artery disease Diagnosis: Secondary Plan: Continue home carvedilol, Lisinopril, Imdur, and Lipitor. (5) Diabetes mellitus Diagnosis: Secondary Plan: Hold home Metformin. Continue Levemir 50 units BID. SSI per protocol. (6) Anxiety and depression Diagnosis: Secondary Plan: Continue home Fluoxetine 40 mg daily. (7) S/P cervical spinal fusion Diagnosis: Secondary Plan: Patient recently underwent C3-4 and C4-5 anterior cervical fusion with removal of C4-6 cervical plate 10/02. Patient reports she is doing well at this time that she plans to have follow-up x-rays 11/11 and potential removal of neck brace 11/13 after following up with Dr. Lares. Caution if potential need for intubation occurs. - spoke with Dr. Lares office today (11/11), patient to get PA & lateral cervical x-rays today and follow up with them on the (8) Diarrhea Diagnosis: Secondary Plan: Bedside Hemoccult negative. C. diff studies negative. (9) Fluids, Electrolytes, and Nutrition Diagnosis: Secondary Plan: - Fluids: Tolerating PO - Electrolytes: WNL. Monitor and replace as needed - Nutrition: Diabetic diet - DVT prophylaxis: On Xarelto for PE - GI prophylaxis: On Protonix since on steroids (10) Gram-positive bacteremia Diagnosis: Secondary Plan: Infectious disease consult Blood cultures 11/07 grew staph epi Likely contaminant Infectious disease: recommend d/c cefepime, d/c vancomycin. 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 Queen with PMH recent cervical fusion, CAD, COPD, HTN who presents with shortness of breath. Patient reports that she has been unable to catch her breath for the past week, and has had gradually respiratory function. Patient states due to the severity of her shortness of breath she has been unable to walk/talk/eat adequately/ambulate to the shower. Patient reports history of COPD and need for chronic use of Albuterol and Ipratropium nebulizer and inhalers at home. Patient states that these generally relieve her shortness of breath but were not effective today, so she sought admission. Patient also reports coughing up green/yellow sputum for ~1 day; she denies coughing up blood. Patient states that she took her temperature and had a fever to 101.1F over the past couple days (ranged from 99 - 101F). Patient also reports increased sweating sweating. Patient also reports chronic abdominal pressure and chest pain; she states that she has been recently evaluated for CAD preoperatively for cervical fusion 10/02 and was told she did not have suggestion of current reversible ischemia. Patient states she has occasional palpitations. Patient reports diarrhea for ~ 1 month. Patient states having black stools but she attributes this to taking iron chronically. Patient states her diarrhea consists of 510 stools daily. Regarding patient's recent cervical fusion 10/[address] Lares, patient states she is scheduled to see Dr. Lares 11/13; she will get XR 11/11. Patient also reports throat pain after surgery. Patient also reports chronic calf pain. Interval: Patient initially w/ O2 sat in high 80's, placed on NC O2 which improved sats. ABG with pH 7.46. Troponin negative, EKG w/ sinus rhythm with no sign of acute ischemia or arrhythmia. CTA revealed PE; patient started on therapeutic Lovenox after clearance by on-call NS Dr. Garnica (per conversation w/ ED). Patient also started on empiric CAP treatment w/ Azithro and Ceftriaxone for possible pneumonia CBC/BMP: 11/11/16 0508 11/11/16 0508 Significant Findings Laboratory Tests Test 11/10/16 11/11/16 03:45 05:08 Red Blood Count 3.72 MIL/MM3 (4.00-5.30) Hemoglobin 10.4 GM/DL 10.9 GM/DL (11.6-15.3) (11.6-15.3) Hematocrit 30.9 % 33.5 % (35.0-46.0) (35.0-46.0) Neutrophils (%) (Auto) 89.2 % 86.7 % (16.0-70.0) (16.0-70.0) Lymphocytes (%) (Auto) 7.5 % 8.7 % (9.0-44.0) (9.0-44.0) Neutrophils # (Auto) 8.8 TH/MM3 7.8 TH/MM3 (1.8-7.7) (1.8-7.7) Lymphocytes # (Auto) 0.7 TH/MM3 0.8 TH/MM3 (1.0-4.8) (1.0-4.8) Blood Urea Nitrogen 23 MG/DL (7-18) Estimat Glomerular Filtration 70 ML/MIN (>89) Rate Random Glucose 136 MG/DL 118 MG/DL (74-106) (74-106) Mean Corpuscular Hemoglobin 26.9 PG (27.0-34.0) Albumin 3.0 GM/DL (3.4-5.0) Imaging Last Impressions Cervical Spine X-Ray 11/11/16 0000 Signed Impressions: Service Date/Time: Friday, November 11, 2016 15:52 - CONCLUSION: 1. Anterior fusion C3-C5. Jay Vazquez MD Chest X-Ray 11/09/16 0000 Signed Impressions: Service Date/Time: Wednesday, November 09, 2016 17:07 - CONCLUSION: 1. Scattered subsegmental airspace disease in the lungs. Differential diagnosis does include scattered bronchopneumonia or atelectasis. Findings are similar to November 07. Judd Jenkins MD Lower Extremity Ultrasound 11/08/16 0000 Signed Impressions: Service Date/Time: Tuesday, November 08, 2016 07:48 - CONCLUSION: 1. No evidence of deep venous thrombosis. 2. Apparent thrombus in one of the right superficial femoral veins in the calf region. Eddie Judge MD CT Angiography 11/07/16 0000 Signed Impressions: Service Date/Time: Monday, November 07, 2016 21:20 - CONCLUSION: 1. Small left lower lobe pulmonary embolus. 2. Widespread airspace disease, nonspecific. 3. Coronary artery calcification. 4. 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 Sam Gonzalez MD PE at Discharge GENERAL: Obese female sitting up in bed. SKIN: Warm and dry, no rashes appreciated. HEENT: Pupils equal and round. No nasal drainage. Nasal cannula in place. MMM. NECK: C-collar in place. HEART: Distant heart sounds with RRR no m/r/g. LUNGS: Decreased breath sounds with diffuse crackles that improve after coughing. ABDOMEN: Soft, NT, ND. EXTREMITIES: No LE edema. No calf tenderness. NEURO: Awake and alert. Hospital Course Patient was treated for the above conditions. Regarding her pulmonary embolism , we converted the patient to xarelto for long-term treatment. She was started on 15 mg by mouth twice a day for 3 weeks, and will be continued on 20 mg daily. These instructions were verbalized to the patient with understanding. Regarding her pneumonia, we got infectious disease on board when her blood work came back positive 2. Infectious disease this was likely a contaminant. Her IV antibiotics were discontinued and she was continued on Levaquin to complete 10 more days of antibiotic treatment. She will be continued on a steroid taper at her [facility] facility. Physical [facility] to be performed at [facility], [facility]. She did fail oxygen walk test, and recommended home with oxygen. Pt Condition on Discharge: Fair Discharge Disposition: Discharge to SNF Discharge Instructions DIET: Follow Instructions for: Diabetic Diet Activities you can perform: See Additionl Instruction Other Activity Instructions: Per PT Follow up Referrals: PCP Follow-up - 1 Week New Medications: Levofloxacin (Levaquin) 750 Mg Tab 750 MG PO DAILY Infection #10 Ref 0 TAB Oxygen tank (Oxygen tank) 1 Ea Tank 2 LITER FORD.CANULA CONTINUOUS Oxygen Concentrator Portable Gaseous 2 L/min via Nasal Cannula Continuous For 99 months HYPOXEMIA PREVENTION #1 CYLINDER Prednisone (Prednisone) 5 Mg Tab 5 MG PO DAILY take after completion of prednisone 10 mg pills #5 Ref 0 TAB Prednisone (Prednisone) 10 Mg Tab 10 MG PO DAILY take after completion of prednisone 20 mg pills #5 Ref 0 TAB Prednisone (Prednisone) 20 Mg Tab 20 MG PO DAILY take AFTER completion of prednisone 40 mg pills #5 Ref 0 TAB Prednisone (Prednisone) 20 Mg Tab 40 MG PO DAILY Take 40 mg (2 tablets) daily for 5 days #10 Ref 0 TAB Rivaroxaban (Xarelto) 20 Mg Tab 20 MG PO DAILY Start AFTER completion of xarelto 15 mg twice a day is completed Blood Clot Prevention #30 Ref 0 TAB Walker Rolling/GetGo (Walker Rolling/GetGo) 1 Mis Mis 1 EA .ROUTE DIRECTED #1 EA Rivaroxaban (Xarelto) 15 Mg Tab 15 MG PO BID #34 TAB Continued Medications: Albuterol 18 GM Inh (Ventolin Hfa 18 GM Inh) 90 Mcg/Act Aer 1 PUFF INH Q4H PRN SHORTNESS OF BREATH #1 Ref 0 INHALER Amlodipine (Amlodipine) 10 Mg Tab 10 MG PO DAILY Blood Pressure Management #90 Ref 3 TAB Carvedilol (Carvedilol) 12.5 Mg Tab 12.5 MG PO BID #60 Ref [address] (Nexium) 20 Mg Capdr 20 MG PO DAILY Ref 0 CAP Ferrous Sulfate (Ferrous Sulfate) 325 Mg Tab 650 MG PO DAILY Nutritional Supplement #30 Ref 0 TAB Fluoxetine (Fluoxetine) 40 Mg Cap 40 CAP PO DAILY #90 Ref 3 CAP Insulin Glargine Inj (Lantus Solostar Pen Inj) 300 Unit/3 Ml Pen 80 UNITS SQ DIRECTED take 80 units in the morning and 70 units at bedtime Blood Sugar Management #3 Ref 11 PEN Insulin Lispro (Human) Inj (Humalog Kwikpen Pen Inj) 300 Unit/3 Ml Pen 1 UNITS SQ DIRECTED Max dose at bedtime: 0 units; sugar <70 (0) units, sugar 150-199(2)units sugar 200-249 (4)units sugar 250-299 (7)units sugar 300-349 (10) units sugars>349 (12)units Blood Sugar Management #1 Ref 6 PEN Ipratropium HFA 12.9 GM Inh (Atrovent HFA 12.9 GM Inh) 17 Mcg/Act Aer 2 PUFF INH QID #1 Ref 0 INHALER Ipratropium-Albuterol Neb (Duoneb) 0.5-2.5 Mg/3 Ml Neb 1 NEBULE INH Q6HR NEB Breathing Treatment #120 Ref 6 NEBULE Isosorbide Mononitrate ER (Isosorbide Mononitrate ER) 60 Mg Tab 60 MG PO DAILY Prevent Chest Pain #30 Ref 6 TAB Lisinopril (Lisinopril) 20 Mg Tab 20 MG PO BID #30 Ref 0 TAB Metformin (Metformin) 1,000 Mg Tab 1000 MG PO BIDPC With meals Blood Sugar Management #60 Ref 0 TAB Walker with Front Wheels (Walker with Front Wheels) 1 Mis Mis 1 EA .ROUTE DIRECTED #1 Ref 0 EA Discontinued Medications: Walker with Front Wheels (Walker with Front Wheels) 1 Mis Mis 1 EA .ROUTE DIRECTED #1 Ref 0 EA Fidencio Curtis MD R2 November 12, 2016 10:34
[2016-12-03] MEDS ORDERED: XARE20TA PO (09:16)
[2016-12-03] MEDS ORDERED: BLOOD GLUCOSE T1 TES (09:24)
[2016-12-08] MEDS ORDERED: OXYGENTANK NAS.CANULA (11:04)
[2016-12-11] MEDS ORDERED: OXYGENTANK NAS.CANULA (12:09)
[2016-12-15] MEDS ORDERED: NEXI20CA PO (10:45)
== END 2016-11-12 15:48 | DRG 871 ==
LOC: NEPE 19:45 → NEDA 22:08 → N04A 23:51
PROVIDERS: ADMIT Family Medicine; ATTEND Family Medicine
DX: A41.1 Sepsis due to other specified staphylococcus (principal); J18.9 Pneumonia, unspecified organism; I26.99 Other pulmonary embolism without acute cor pulmonale; J44.0 Chronic obstructive pulmonary disease with (acute) lower respiratory infection; I82.411 Acute embolism and thrombosis of right femoral vein; I25.10 Atherosclerotic heart disease of native coronary artery without angina pectoris; F32.9 Major depressive disorder, single episode, unspecified; E78.5 Hyperlipidemia, unspecified; I10 Essential (primary) hypertension; E11.319 Type 2 diabetes mellitus with unspecified diabetic retinopathy without macular edema; Z66 Do not resuscitate; E87.6 Hypokalemia; E11.42 Type 2 diabetes mellitus with diabetic polyneuropathy; M79.7 Fibromyalgia; R19.7 Diarrhea, unspecified; Z95.5 Presence of coronary angioplasty implant and graft; Z79.4 Long term (current) use of insulin; Z87.891 Personal history of nicotine dependence; Z79.01 Long term (current) use of anticoagulants; Z98.1 Arthrodesis status; F41.9 Anxiety disorder, unspecified; D64.9 Anemia, unspecified; E11.65 Type 2 diabetes mellitus with hyperglycemia
CPT/HCPCS: 36600; 71010; 71275; 72040; 80048; 80053; 80061; 81001; 82550; 82805; 82948; 83605; 83690; 83880; 84484; 85025; 85610; 85730; 86403; 87040; 87070; 87186; 87205; 87449; 87493; 93005; 93306; 93970; 94620; 94640; 94664; 96365; 96367; 96375; C9113; J0456; J0692; J0696; J1650; J1815; J1956; J2920; J2930; J3370; J3480; J7040; J7050; J7512; J7613; Q9967

== ENCOUNTER 2017-03-02 12:58 | Inpatient (IN) | payer MEDICARE ==
[2017-03-02] VITALS (9 sets, daily range): BP systolic 106–132; BP diastolic 53–66; PULSE 69–82; RESP 16–32; TEMP 97.6–98.3; O2SAT 94–97
[~2017-03-02] VITALS: Ht 167.6 cm; Wt 105.7 kg
[~2017-03-02 12:58] MED LIST changes: +BLOOD GLUCOSE T1 TES; +GETGO ROLLING W1 MI1; +OXYGENTANK NAS.CANULA; -PERC5TAB12 PO; +XARE20TA PO; -ZOFR4TAB PO
--- NOTE | 2017-03-02 13:27 | PD ---
HPI Chief Complaint: General Weakness Time Seen by Provider: 13:12 Travel History International Travel<30 days: No Contact w/Intl Traveler<30days: No Traveled to known affect area: No History of Present Illness HPI Patient comes in complaining of generalized weakness ongoing since Thursday. Patient states that she fell trying to get out of her chair a week ago hitting her head. Patient ports intermittent headache since. Denies any change in vision, nausea, vomiting, shortness of breath out of the ordinary, chest pain, fevers, abdominal pain, loss or change in bowel or bladder, or numbness or tingling anywhere. Patient reports some dizziness with this. Patient denies anything making it better feels as though it has got somewhat worse. Patient reports when she fell she only on the ground briefly as her son came picked her up immediately. Denies any loss of consciousness. Denies any neck pain. Patient is on Xarelto. PFSH Past Medical History Arthritis: Yes Asthma: Yes Anxiety: Yes Depression: Yes Cancer: Yes (OVARIAN CA 2011, CHEMO COMPLETED 2012) Cardiac Catheterization: Yes (STENT X1 1999) Cardiovascular Problems: Yes (CHF) High Cholesterol: Yes Chemotherapy: Yes Chest Pain: Yes Congestive Heart Failure: Yes COPD: Yes Coronary Artery Disease: Yes Diabetes: Yes Patient Takes Glucophage: No Diminished Hearing: No Endocrine: Yes Gastrointestinal Disorders: Yes (GERD) Genitourinary: No Hepatitis: No Hiatal Hernia: No Hypertension: Yes Immune Disorder: Yes (FIBROMYALGIA) Kidney Stones: Yes (BOTH) Musculoskeletal: Yes (ARTHRITIS) Neurologic: Yes (BOTH ARMS WEAK WITH PAIN IN BACK OF NECK) Psychiatric: Yes Reproductive: No Immunizations Current: Yes Myocardial Infarction: Yes Radiation Therapy: No Renal Failure: Yes (ACUTE RENAL FAILURE) Thyroid Disease: No Influenza Vaccination: No ?: Not Menopausal: Yes Ovarian Cysts: Yes Past Surgical History Abdominal Surgery: Yes (CHOLECYSTECTOMY, APPENDECTOMY, EX LAP) AICD: No Appendectomy: Yes Body Medical Devices: PORT IN R SIDE OF CHEST, HARDWARE IN NECK, CINDI IN ABD Cardiac Surgery: Yes (1 STENT) Section: Yes (2 PAST) Cholecystectomy: Yes Coronary Stent: Yes Endocrine Surgery: Yes (CADAVIR SURGERY NECK) Gynecologic Surgery: Yes (HYSTERECTOMY, BILAT S+O) Hysterectomy: Yes Joint Replacement: No Neurologic Surgery: Yes (ACDF) Pacemaker: No Tonsillectomy: Yes Other Surgery: Yes (CARPAL TUNENL) Social History Alcohol Use: No Tobacco Use: No Substance Use: No Allergies-Medications (Allergen,Severity, Reaction): Coded Allergies: No Known Allergies (Verified , 03/02/17) Reported Meds & Prescriptions Reported Meds & Active Scripts Active Nexium (Esomeprazole DR) 20 Mg Capdr 20 Mg PO DAILY Oxygen tank (Oxygen) 1 Ea Tank 2 Liter FORD.CANULA CONTINUOUS Oxygen Concentrator Portable Gaseous 3 L/min via Nasal Cannula Continuous For 99 months Xarelto (Rivaroxaban) 20 Mg Tab 20 Mg PO DAILY Amlodipine (Amlodipine Besylate) 10 Mg Tab 10 Mg PO DAILY Carvedilol 12.5 Mg Tab 12.5 Mg PO BID Fluoxetine (Fluoxetine HCl) 40 Mg Cap 40 Cap PO DAILY Isosorbide Mononitrate ER (Isosorbide Mononitrate) 60 Mg Tab 60 Mg PO DAILY Reported Colace (Docusate Sodium) 100 Mg Capsule 100 Mg PO BID Ferrous Sulfate 325 Mg (65 Mg Iron) Tablet 650 Mg PO DAILY Duoneb (Ipratropium-Albuterol Neb) 0.5-2.5 Mg/3 Ml Neb 3 Ml NEB Q6HR PRN Atrovent HFA 12.9 GM Inh (Ipratropium [place]) 17 Mcg/Actuation Aer 1 Puff INH Q4HR PRN Humalog Mix 75-25 Inj (Insulin Lispro Protam/Lispro Human) 1,000 Unit/10 Ml Susp SQ ACHS PER SLIDING SCALE Lantus Solostar Pen Inj (Insulin Glargine) 300 Unit/3 Ml Pen 70 Units SQ HS Lantus Solostar Pen Inj (Insulin Glargine) 300 Unit/3 Ml Pen 80 Units SQ DAILY IN THE AM [place] (Hydrocodone-Acetaminophen) 5-325 mg Tab 1-2 Tab PO Q4HR Lisinopril 20 Mg Tab 20 Mg PO DAILY Review of Systems Except as stated in HPI: all other systems reviewed are Neg Physical Exam Narrative GENERAL: Well-developed, overly nourished, in no acute distress, and non-ill appearing. SKIN: Focused skin assessment warm and dry. HEAD: Atraumatic. Normocephalic. EYES: Pupils equal and round. EOMI. No scleral icterus. No injection or drainage. ENT: No nasal bleeding or discharge. Mucous membranes pink and moist. NECK: Trachea midline. Supple. No nuclear rigidity. CARDIOVASCULAR: Regular rate and rhythm. No murmur appreciated. RESPIRATORY: No accessory muscle use. No respiratory distress. Decreased breath sounds throughout. Breath sounds equal bilaterally. MUSCULOSKELETAL: No obvious deformities. No clubbing. No cyanosis. No edema. Full range of motion. NEUROLOGICAL: Awake and alert. No obvious cranial nerve deficits. Motor grossly within normal limits. Normal speech. Smiles symmetrical. Equal rise and fall of eyebrow. No deviation of the tongue. No pronator drift. PSYCHIATRIC: Appropriate mood and affect; insight and judgment normal. Data Data Last Documented VS Vital Signs Date Time Temp Pulse Resp B/P (MAP) Pulse Ox O2 Delivery O2 Flow Rate FiO2 03/02/17 16:05 71 24 109/58 (75) 94 Nasal Cannula 3.00 03/02/17 13:07 98.3 Orders Orders Electrocardiogram (03/02/17 13:16) Complete Blood Count With Diff (03/02/17 13:16) Comprehensive Metabolic Panel (03/02/17 13:16) Magnesium (Mg) (03/02/17 13:16) B-Type Natriuretic Peptide (03/02/17 13:16) Ckmb (Isoenzyme) Profile (03/02/17 13:16) Troponin I (03/02/17 13:16) Act Partial Throm Time (Ptt) (03/02/17 13:16) Prothrombin Time / Inr (Pt) (03/02/17 13:16) Urinalysis - C+S If Indicated (03/02/17 13:16) Chest, Single Ap (03/02/17 13:16) Ct Brain W/O Iv Contrast(Rout) (03/02/17 13:16) Ct Cerv Spine W/O Contrast (03/02/17 13:16) Blood Glucose (03/02/17 13:16) Ecg Monitoring (03/02/17 13:16) Iv Access Insert/Monitor (03/02/17 13:16) Oximetry (03/02/17 13:16) Sodium Chloride 0.9% Flush (Ns Flush) (03/02/17 13:30) Beta Hydroxybutyrate (Acetone) (03/02/17 13:16) Arterial Blood Gas (Abg) (03/02/17 13:50) Sodium Chlor 0.9% 250 Ml Inj (Ns 250 Ml (03/02/17 16:00) Admit Order (Ed Use Only) (03/02/17 16:08) Labs Laboratory Tests Test 03/02/17 13:23 03/02/17 13:50 03/02/17 14:20 White Blood Count 9.5 TH/MM3 Red Blood Count 4.04 MIL/MM3 Hemoglobin 11.2 GM/DL Hematocrit 33.7 % Mean Corpuscular Volume 83.4 FL Mean Corpuscular Hemoglobin 27.7 PG Mean Corpuscular Hemoglobin Concent 33.2 % Red Cell Distribution Width 14.1 % Platelet Count 285 TH/MM3 Mean Platelet Volume 8.4 FL Neutrophils (%) (Auto) 70.3 % Lymphocytes (%) (Auto) 17.5 % Monocytes (%) (Auto) 6.8 % Eosinophils (%) (Auto) 4.8 % Basophils (%) (Auto) 0.6 % Neutrophils # (Auto) 6.7 TH/MM3 Lymphocytes # (Auto) 1.7 TH/MM3 Monocytes # (Auto) 0.6 TH/MM3 Eosinophils # (Auto) 0.5 TH/MM3 Basophils # (Auto) 0.1 TH/MM3 CBC Comment DIFF FINAL Differential Comment Prothrombin Time 13.5 SEC Prothromb Time International Ratio 1.2 RATIO Activated Partial Thromboplast Time 33.4 SEC Blood Urea Nitrogen 29 MG/DL Creatinine 1.46 MG/DL Random Glucose 271 MG/DL Total Protein 7.1 GM/DL Albumin 3.1 GM/DL Calcium Level 9.2 MG/DL Magnesium Level 1.9 MG/DL Alkaline Phosphatase 135 U/L Aspartate Amino Transf (AST/SGOT) 10 U/L Alanine Aminotransferase (ALT/SGPT) 16 U/L Total Bilirubin 0.2 MG/DL Sodium Level 135 MEQ/L Potassium Level 4.9 MEQ/L Chloride Level 97 MEQ/L Carbon Dioxide Level 29.3 MEQ/L Anion Gap 9 MEQ/L Estimat Glomerular Filtration Rate 36 ML/MIN Total Creatine Kinase 41 U/L Troponin I LESS THAN 0.02 NG/ML B-Type Natriuretic Peptide 30 PG/ML B-Hydroxybutyrate 0.23 MMOL/L Blood Gas Puncture Site RT RADIAL Blood Gas Patient Temperature 98.6 Blood Gas HCO3 26 mmol/L Blood Gas Base Excess 1.4 mmol/L Blood Gas Oxygen Saturation 94 % Arterial Blood pH 7.37 Arterial Blood Partial Pressure CO2 47 mmHg Arterial Blood Partial Pressure O2 82 mmHG Arterial Blood Oxygen Content 14.3 Vol % Arterial Blood Carboxyhemoglobin 1.4 % Arterial Blood Methemoglobin 0.7 % Blood Gas Hemoglobin 10.7 G/DL Oxygen Delivery Device NASAL CANNULA Blood Gas Liter Flow 3 L/M Urine Color YELLOW Urine Turbidity HAZY Urine pH 5.0 Urine Specific [place] 1.018 Urine Protein TRACE mg/dL Urine Glucose (UA) NEG mg/dL Urine Ketones NEG mg/dL Urine Occult Blood NEG Urine Nitrite NEG Urine Bilirubin NEG Urine Urobilinogen 2.0 MG/DL Urine Leukocyte Esterase NEG Urine RBC 1 /hpf Urine WBC 2 /hpf Urine Squamous Epithelial Cells 2 /hpf Urine Amorphous Sediment RARE Urine Bacteria RARE /hpf Urine Hyaline Casts 11 /lpf Urine Mucus FEW /lpf Microscopic Urinalysis Comment CULT NOT INDICATED MDM Medical Decision Making Medical Screen Exam Complete: Yes Emergency Medical Condition: Yes Interpretation(s) EKG reviewed by Dr. Fraire shows sinus rhythm with ventricular rate of 70. No STEMI. Chest x-ray reviewed by the radiologist shows: Hypoinflation without acute infiltrate. CT head read by the radiologist shows: No evidence of acute intracranial pathology. No masses are identified. CT cervical spine other shows: 1. No fracture or dislocation. 2. Fusion from C3-C6. 3. Multilevel neural foraminal narrowing. Differential Diagnosis CVA, TIA, CHF exacerbation, DKA, COPD exacerbation, acute coronary syndrome, electrolyte abnormality, intracranial hemorrhage, fracture, strain, other Narrative Course Patient was seen and examined. Initial Laboratory and radiological studies were ordered. [id number] patient reassessed reports still continues to feel dizzy and weak. Discussed all laboratory findings. Awaiting CT scans. After reviewing labs. Patient was hydrated with small amount of fluid secondary to history of CHF. Reviewed CT of the cervical spine with Dr. Fraire as negative for acute findings. Awaiting radiologist over read. Discussed all findings and plan care of patient, who is agreeable for admission. All questions were answered. Discussed patient with residents, who are agreeable to admit the patient. Physician Communication Physician Communication [id number] discussed patient with resident sports information director for Dr. Wilburn, who is agreeable to admit the patient. Diagnosis Primary Impression: Dizziness, nonspecific Additional Impression: General weakness Admitting Information Admitting Physician Requests: Observation Condition: Stable John Paul Valdes Mar 02, 2017 13:26
[2017-03-02] MEDS ORDERED: SODIUM CHLORIDE 0.9% FLUSH 10 ML FLUSH IVF PRN (13:30)
[2017-03-02 13:42] LABS: AUTOMATED NEUTROPHIL # 6.7 TH/MM3 (1.8-7.7); BASOPHIL # 0.1 TH/MM3 (0-0.2); BASOPHIL % 0.6 % (0.0-2.0); EOSINOPHIL # 0.5 TH/MM3 (0-0.4); EOSINOPHIL % 4.8 % (0.0-4.0); HEMATOCRIT 33.7 % (35.0-46.0); HEMO FLAGS DIFF FINAL; LYMPH % 17.5 % (9.0-44.0); LYMPHOCYTE # 1.7 TH/MM3 (1.0-4.8); MEAN CELL VOLUME 83.4 FL (80.0-100.0); MEAN CORPUSCULAR HEMOGLOBIN 27.7 PG (27.0-34.0); MEAN CORPUSCULAR HGB CONC 33.2 % (32.0-36.0); MONO % 6.8 % (0.0-8.0); NEUT % 70.3 % (16.0-70.0); PLATELET COUNT 285 TH/MM3 (150-450); RED BLOOD COUNT 4.04 MIL/MM3 (4.00-5.30); RED CELL DISTRIBUTION WIDTH 14.1 % (11.6-17.2); WHITE BLOOD COUNT 9.5 TH/MM3 (4.0-11.0)
[2017-03-02 13:45] LABS: APTT (PATIENT) 33.4 SEC (24.3-30.1); INTERNATIONAL NORMALIZED RATIO 1.2 RATIO; PROTHROMBIN TIME - PATIENT 13.5 SEC (9.8-11.6)
[2017-03-02] MEDS ORDERED: IPRASOL NEB (13:54)
[2017-03-02] MEDS ORDERED: LANTINJ SQ ×2 (13:54)
[2017-03-02] MEDS ORDERED: INSU100V SQ (13:54)
[2017-03-02] MEDS ORDERED: NORC5TAB PO (13:54)
[2017-03-02] MEDS ORDERED: FERR325T8 PO (13:54)
[2017-03-02] MEDS ORDERED: IPRA17I INH (13:54)
[2017-03-02] MEDS ORDERED: COLA100C PO (13:55)
[2017-03-02 13:56] LABS: ALT (GPT) 16 U/L (10-53); ANION GAP 9 MEQ/L (5-15); AST (GOT) 10 U/L (15-37); BICARBONATE 29.3 MEQ/L (21.0-32.0); BLOOD UREA NITROGEN 29 MG/DL (7-18); CHLORIDE 97 MEQ/L (98-107); GLOMERULAR FILTRATION RATE 36 ML/MIN (>89); MAGNESIUM 1.9 MG/DL (1.5-2.5); POTASSIUM 4.9 MEQ/L (3.5-5.1); SODIUM (NA) 135 MEQ/L (136-145)
--- NOTE | 2017-03-02 13:59 | RADRPT ---
EXAM DATE/TIME: 03/02/2017 13:20 [facility] COMPARISON: CHEST SINGLE AP, November 09, 2016, 17:07. INDICATIONS : Patient fell one week ago , pain in chest. MEDICAL HISTORY : Hypertension. Congestive heart failure. Gastroesophageal reflux disease.Renal failure SURGICAL HISTORY : Appendectomy. Cholecystectomy. Hysterectomy. ENCOUNTER: Initial ACUITY: 1 week PAIN SCORE: 4/10 LOCATION: Bilateral upper chest FINDINGS: A single portable frontal view of the chest shows low lung volumes. Heart is normal in size. Bronchov ascular crowding secondary to the degree of inspiration. No discrete infiltrate or effusion. Power po rt overlies the right chest. Bony structures are unremarkable. No pneumothorax. CONCLUSION: Hypoinflation without acute infiltrate. Garrett Melara Jr., MD on March 02, 2017 at 13:54 Board Certified Radiologist. This report was verified electronically.
[2017-03-02 14:01] LABS: ALKALINE PHOSPHATASE 135 U/L (45-117); BETA-HYDROXYBUTYRATE 0.23 MMOL/L (0.00-0.39); CREATINE KINASE 41 U/L (26-192); TOTAL BILIRUBIN ADULT 0.2 MG/DL (0.2-1.0)
[2017-03-02 14:03] LABS: BLOOD GAS BASE EXCESS 1.4 mmol/L (-2-2); BLOOD GAS CARBOXYHEMOGLOBIN 1.4 % (0-4); BLOOD GAS HCO3 26 mmol/L (22-26); BLOOD GAS METHEMOGLOBIN 0.7 % (0-2); BLOOD GAS O2 HGB SATURATION 94 % (90-100); BLOOD GAS OXYGEN CONTENT 14.3 Vol % (12.0-20.0); BLOOD GAS PCO2 47 mmHg (38-42); BLOOD GAS PO2 82 mmHG (61-120); BLOOD GAS TOTAL HGB 10.7 G/DL (12.0-16.0); CRITICAL VALUE NO; DRAW SITE RT RADIAL; LITER FLOW 3 L/M; NUMBER OF ARTERIAL PUNCTURES 1; OXYGEN DEVICE NASAL CANNULA; STAT NO; TEMP CORR TO 98.6; ULNAR PULSE PRESENT
[2017-03-02 14:39] LABS: BACTERIA, URINE RARE /hpf; BLOOD, URINE NEG (NEG); COMMENT (UR) CULT NOT INDICATED; CULTURE IF INDICATED CULT NOT INDICATED; GLUCOSE,URINE NEG (NEG); HYALINE CAST, URINE 11 /lpf (RARE); KETONE, URINE NEG (NEG); MUCUS URINE FEW /lpf (OCC); NITRITE,URINE NEG (NEG); SQUAMOUS EPITHELIAL CELL URINE 2 /hpf (0-5); URINE COLOR YELLOW (YELLW/STRAW)
--- NOTE | 2017-03-02 15:30 | RADRPT ---
EXAM DATE/TIME: 03/02/2017 15:03 [facility] COMPARISON: CT BRAIN W/O CONTRAST, May 12, 2016, 11:43. INDICATIONS : Dizziness. RADIATION DOSE: 29.45 CTDIvol (mGy) ; Patient motion MEDICAL HISTORY : None SURGICAL HISTORY : None. ENCOUNTER: Initial ACUITY: 1 day PAIN SCALE: 4/10 LOCATION: cranial TECHNIQUE: Multiple contiguous axial images were obtained of the head. Using automated exposure control and adj ustment of the mA and/or kV according to patient size, radiation dose was kept as low as reasonably a chievable to obtain optimal diagnostic quality images. DICOM format image data is available electro nically for review and comparison. FINDINGS: CEREBRUM: The ventricles are normal for age. No evidence of midline shift, mass lesion, hemorrhage or acute in farction. No extra-axial fluid collections are seen. POSTERIOR FOSSA: The cerebellum and brainstem are intact. The 4th ventricle is midline. The cerebellopontine angle i s unremarkable. EXTRACRANIAL: The visualized portion of the orbits is intact. SKULL: The calvaria is intact. No evidence of skull fracture. CONCLUSION: 1. No evidence of acute intracranial pathology. No masses are identified. Kostas Perez MD on March 02, 2017 at 15:28 Board Certified Radiologist. This report was verified electronically.
[2017-03-02] MEDS ORDERED: SODIUM CHLOR 0.9% 250 ML INJ 250 ML IV ONE (16:00)
--- NOTE | 2017-03-02 16:15 | RADRPT ---
EXAM DATE/TIME: 03/02/2017 15:12 [facility] COMPARISON: CT CERVICAL SPINE W/O CONTRAST, May 12, 2016, 11:43. INDICATIONS : Trauma, fall today. RADIATION DOSE: 24.68 CTDIvol (mGy) MEDICAL HISTORY : Congestive hearrt failure. ovarian cancer SURGICAL HISTORY : coronary stent ENCOUNTER: Initial ACUITY: 1 day PAIN SCALE: 5/10 LOCATION: Bilateral neck TECHNIQUE: Volumetric scanning of the cervical spine was performed. Multiplanar reconstructions in the sagittal, coronal and oblique axial planes were performed. Using automated exposure control and adjustment o f the mA and/or kV according to patient size, radiation dose was kept as low as reasonably achievable to obtain optimal diagnostic quality images. DICOM format image data is available electronically f or review and comparison. FINDINGS: VERTEBRAE: There is an anterior fusion plate with intervening bone graft device is involving C3, C4, and C5. The re is a bone graft device without anterior plate at C5-C6. No fracture or dislocation. ALIGNMENT: No evidence of subluxation. C2-C3: The bony spinal canal is normal in size. No evidence of disc bulge or herniation. The neural forami na are bilaterally patent. C3-C4: Fused. Central canal is patent. Bony uncovertebral hypertrophy generates mild neural foraminal narrow ing bilaterally. C4-C5: Fused. Central canal is patent. Bony uncovertebral hypertrophy generates mild neural foraminal narrow ing bilaterally. C5-C6: Fused. Central canal is patent. Bony uncovertebral hypertrophy generates mild neural foraminal narrow ing bilaterally. C6-C7: The bony spinal canal is normal in size. No evidence of disc bulge or herniation. The neural forami na are bilaterally patent. C7-T1: The bony spinal canal is normal in size. No evidence of disc bulge or herniation. The neural forami na are bilaterally patent. CONCLUSION: 1. No fracture or dislocation. 2. Fusion from C3-C6. 3. Multilevel neural foraminal narrowing. Garrett Melara Jr., MD on March 02, 2017 at 15:56 Board Certified Radiologist. This report was verified electronically.
[2017-03-02] MEDS ORDERED: SODIUM CHLORIDE 0.9% FLUSH 10 ML FLUSH IV FLUSH PRN (16:30)
--- NOTE | 2017-03-02 17:10 | HHI.HP ---
[facility] Service Family Medicine Primary Care Physician Lauren Christensen MD Admission Diagnosis dizziness, generalized weakness, mild renal insufficiency Diagnoses: International Travel<30 Days: No Contact w/Intl Traveler<30days: No Known Affected Area: No History of Present Illness Mrs. Sewell is a 66-year-old female with a significant history of cervical spine fusion, pulmonary embolism in 11/2016, coronary artery disease, COPD, hypertension, and diabetes mellitus, presenting with increasing weakness and falls. History of present illness: The patient reports that approximately 2 days ago " I could not walk." A week prior to the difficulty with ambulation, she reports falling forward after getting out of a chair, and states that my "right leg didn 't work." She fell backwards, and hit her head on the windowsill. She denies any loss of consciousness, uncontrollable moving of her extremities, urinary incontinence, palpitations or chest pain prior to the episode, or new vertigo. Since this time, she has had a persistent headache, that is currently at 3 out of 10 in intensity and localized over the area of trauma. She has been taking her Xarelto every day, and has not missed a dose. She has been taking BC powder for her headaches twice a day, and this relieves the pain. She denies any acute changes in her vision. She also denies any new numbness or tingling on one side of her body. She has been taking nitroglycerin sublingual since falling for chest pain, that is not related to exertion. At her baseline she is able to walk only 5-10 feet without becoming short of breath. This has been gradually getting worse over the past several weeks. She says that she is still spitting up green mucus, and says that "I feel my lungs filling up." She reports completing 3 rounds of antibiotics for community-acquired pneumonia recently. She denies any new swelling in her lower extremities or in her abdomen. She does endorse shortness of breath when laying flat, and orthopnea, that is at her baseline. Review of systems: Denies any nausea, vomiting, increasing shortness breath, fevers, chills, dysuria, or blood in her stools. 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 Hensley (Gynecologic Oncology) - Dr. Huitron (Cardiology) but not seeing her anymore - Dr. Casas (Gastroenterology) - Dr. 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: - - 2 miscarriages, both c-sections Surgeries: - Tonsillectomy () - Exploratory abdominal surgery for persistent emesis - cyst/polyp removed from intestine (1965) - Exploratory surgery for ovarian cyst removal () - C-sections (1974, 1976) - Cholecystectomy (1975) - Surgery on left foot to remove bone chip related to work accident () - Bilateral carpal tunnel surgery () - Hysterectomy & RSO - secondary to menorrhagia (1997) - Cervical spine surgery with cadaver bone graft and steal plate placement ( ) - LSO - secondary to ovarian cancer (2011) Family History: - Father: (lung cancer) - Mother: (pulmonary disease), CHF, DM - Sister 1: cervical, thyroid and lung cancer - Sister 2: ovarian and colon cancer - Brothers: lung cancer Social History: - Tobacco: former (quit 2006, 2 PPD x 40 years) - EtOH: denies - Recreational drugs: denies - On disability. Health Maintenance: - DEXA: 12/2013 - normal - Colonoscopy: 02/2015 (Dr. Casas) - multiple polyps --> repeat 1 yr. Due for one soon (needs to make an appointment) - Mammogram: 12/2015 - normal. Repeat in 12/2016 - Immunizations: - Influenza: recommended 07/2014 - Pneumococcal: 09/2013 (per patient, Pneumovax?). Recommended Prevnar but patient declined - Shingles-recommended 02/21/16 but patient declined - Tetanus: thinks it's been about 10 years. Will need another one Interventions: - PET scan: 08/2015 - 4 cm renal cyst, no evidence of metastasis - Renal U/S: 07/2015 - 3.8 cm right renal cyst (stable from 2012) - Nuclear stress: 06/2015 - large anterior defect, mild inferior ischemia - PFT: 01/2015 - FVC 70% predicted, FEV1 75% predicted, FEV1/FVC normal Allergies: Coded Allergies: No Known Allergies (Verified , 03/02/17) Physical Exam Vital Signs Vital Signs Date Time Temp Pulse Resp B/P (MAP) Pulse Ox O2 Delivery O2 Flow Rate FiO2 03/02/17 16:53 96 Nasal Cannula 2.00 03/02/17 16:05 71 24 109/58 (75) 94 Nasal Cannula 3.00 03/02/17 14:05 69 16 122/57 (78) 95 Nasal Cannula 3.00 03/02/17 13:16 69 25 121/66 (84) 94 Nasal Cannula 3.00 03/02/17 13:07 98.3 82 16 121/66 (84) 94 Physical Exam GENERAL: Obese, slightly disheveled, satting at 92% on 3 L nasal cannula. SKIN: Multiple scars on her extensor surfaces, bruising throughout. No open sores appreciated. EYES: Pupils equal round and reactive to light. HENT: Normocephalic. Atraumatic. MMM. Scalp tenderness to palpation over the right vital region. No ecchymoses or swelling. NECK: No visible JVD or lymphadenopathy. Midline scar just below the cricoid. CARDIOVASCULAR: Faint heart sounds, no murmurs appreciated. Pulses equal to all extremities, posterior tibialis 2+. RESPIRATORY: Poor respiratory effort, using accessory muscles. Diffuse crackles throughout. No significant wheezing. Poor aeration. GASTROINTESTINAL: Abdomen nondistended. Tender to palpation over right lower quadrant. MUSCULOSKELETAL: Strength grossly WNL. 5 out of 5 strength of all of her extremities. BACK: Without obvious deformity. NEURO/PSYCH: Afocal. Awake, alert, and oriented x3. Cerebellar testing within normal limits, full sensation to light touch, cranial nerves intact. Laboratory Laboratory Tests Test 03/02/17 13:23 03/02/17 13:50 03/02/17 14:20 White Blood Count 9.5 Red Blood Count 4.04 Hemoglobin 11.2 Hematocrit 33.7 Mean Corpuscular Volume 83.4 Mean Corpuscular Hemoglobin 27.7 Mean Corpuscular Hemoglobin Concent 33.2 Red Cell Distribution Width 14.1 Platelet Count 285 Mean Platelet Volume 8.4 Neutrophils (%) (Auto) 70.3 Lymphocytes (%) (Auto) 17.5 Monocytes (%) (Auto) 6.8 Eosinophils (%) (Auto) 4.8 Basophils (%) (Auto) 0.6 Neutrophils # (Auto) 6.7 Lymphocytes # (Auto) 1.7 Monocytes # (Auto) 0.6 Eosinophils # (Auto) 0.5 Basophils # (Auto) 0.1 CBC Comment DIFF FINAL Differential Comment Prothrombin Time 13.5 Prothromb Time International Ratio 1.2 Activated Partial Thromboplast Time 33.4 Blood Urea Nitrogen 29 Creatinine 1.46 Random Glucose 271 Total Protein 7.1 Albumin 3.1 Calcium Level 9.2 Magnesium Level 1.9 Alkaline Phosphatase 135 Aspartate Amino Transf (AST/SGOT) 10 Alanine Aminotransferase (ALT/SGPT) 16 Total Bilirubin 0.2 Sodium Level 135 Potassium Level 4.9 Chloride Level 97 Carbon Dioxide Level 29.3 Anion Gap 9 Estimat Glomerular Filtration Rate 36 Total Creatine Kinase 41 Troponin I LESS THAN 0.02 B-Type Natriuretic Peptide 30 B-Hydroxybutyrate 0.23 Blood Gas Puncture Site RT RADIAL Blood Gas Patient Temperature 98.6 Blood Gas HCO3 26 Blood Gas Base Excess 1.4 Blood Gas Oxygen Saturation 94 Arterial Blood pH 7.37 Arterial Blood Partial Pressure CO2 47 Arterial Blood Partial Pressure O2 82 Arterial Blood Oxygen Content 14.3 Arterial Blood Carboxyhemoglobin 1.4 Arterial Blood Methemoglobin 0.7 Blood Gas Hemoglobin 10.7 Oxygen Delivery Device NASAL CANNULA Blood Gas Liter Flow 3 Urine Color YELLOW Urine Turbidity HAZY Urine pH 5.0 Urine Specific [place] 1.018 Urine Protein TRACE Urine Glucose (UA) NEG Urine Ketones NEG Urine Occult Blood NEG Urine Nitrite NEG Urine Bilirubin NEG Urine Urobilinogen 2.0 Urine Leukocyte Esterase NEG Urine RBC 1 Urine WBC 2 Urine Squamous Epithelial Cells 2 Urine Amorphous Sediment RARE Urine Bacteria RARE Urine Hyaline Casts 11 Urine Mucus FEW Microscopic Urinalysis Comment CULT NOT INDICATED Result Diagram: 03/02/17 1323 03/02/17 1323 Imaging Last [address] 03/02/17 1316 Signed Impressions: Service Date/Time: Thursday, March 02, 2017 15:03 - CONCLUSION: 1. No evidence of acute intracranial pathology. No masses are identified. Kostas Perez MD Chest X-Ray 03/02/17 1316 Signed Impressions: Service Date/Time: Thursday, March 02, 2017 13:20 - CONCLUSION: Hypoinflation without acute infiltrate. Garrett Melara Jr., MD Cervical Spine CT 03/02/17 1316 Signed Impressions: Service Date/Time: Thursday, March 02, 2017 15:12 - CONCLUSION: 1. No fracture or dislocation. 2. Fusion from C3-C6. 3. Multilevel neural foraminal narrowing. Garrett Melara Jr., MD Septic Shock Reassessment Heart: Regular rate and rhythm Lungs: Course, Crackles, Diminished Skin: Warm Peripheral Pulses: Bounding Right Posterior Tibial Bounding Left Posterior Tibial Caprini VTE Risk Assessment Caprini VTE Risk Assessment: No/Low Risk (score <= 1) Caprini Risk Assessment Model Point Value = 1 Point Value = 2 Point Value = 3 Point Value = 5 Age 41-60 Minor surgery BMI > 25 kg/m2 Swollen legs Varicose veins or History of unexplained or recurrent spontaneous Oral contraceptives or hormone replacement Sepsis (< 1 month) Serious lung disease, including pneumonia (< 1 month) Abnormal pulmonary function Acute myocardial infarction Congestive heart failure (< 1 month) History of inflammatory bowel disease Medical patient at bed rest Age 61-74 Arthroscopic surgery Major open surgery (> 45 min) Laparoscopic surgery (> 45 min) Malignancy Confined to bed (> 72 hours) Immobilizing plaster cast Central venous access Age >= 75 History of VTE Family history of VTE Factor V Leiden Prothrombin [id number] Lupus anticoagulant Anticardiolipin antibodies Elevated serum homocysteine Heparin-induced thrombocytopenia Other congenital or acquired thrombophilia Stroke (< 1 month) Elective arthroplasty Hip, pelvis, or leg fracture Acute spinal cord injury (< 1 month) Prophylaxis Regimen Total Risk Factor Score Risk Level Prophylaxis Regimen 0-1 Low Early ambulation 2 Moderate Order ONE of the following: *Sequential Compression Device (SCD) *Heparin 5000 units SQ BID 3-4 Higher Order ONE of the following medications: *Heparin 5000 units SQ TID *Enoxaparin/Lovenox 40 mg SQ daily (WT < 150 kg, CrCl > 30 mL/min) *Enoxaparin/Lovenox 30 mg SQ daily (WT < 150 kg, CrCl > 10-29 mL/min) *Enoxaparin/Lovenox 30 mg SQ BID (WT < 150 kg, CrCl > 30 mL/min) AND/OR *Sequential Compression Device (SCD) 5 or more Highest Order ONE of the following medications: *Heparin 5000 units SQ TID (Preferred with Epidurals) *Enoxaparin/Lovenox 40 mg SQ daily (WT < 150 kg, CrCl > 30 mL/min) *Enoxaparin/Lovenox 30 mg SQ daily (WT < 150 kg, CrCl > 10-29 mL/min) *Enoxaparin/Lovenox 30 mg SQ BID (WT < 150 kg, CrCl > 30 mL/min) AND *Sequential Compression Device (SCD) Assessment and Plan Assessment and Plan Patient is a 66-year-old female with past medical history significant for cervical spine fusion, pulmonary embolism in 11/2016, coronary artery disease, COPD, hypertension, and diabetes mellitus, presenting with increasing weakness and falls. Code Status DNR, and DNI Problem List: (1) Recurrent falls ICD Codes: R29.6 - Repeated falls Plan: Patient suffered fall on 02/23, most likely related to orthostatic hypotension. Lower on the differential includes cardiogenic syncope, CVA/TIA, neurogenic syncope, seizures, generalized debility. CT scan of head done in the emergency department showed no acute intracranial processes. Vital signs at goal for her age. UA was within normal limits, troponins were less than 0.02. Satting at 93% on 3 L nasal cannula. Chest x-ray showing no infiltrates. PLAN: -Orthostatic vital signs -MRI of brain without contrast -Carotid ultrasound -Fluid hydration with 75 mL/hour of normal saline -Neurochecks every 4 hours, head of bed flat, permissive hypertension <220/ 110 mm Hg -Consult neurology if any abnormal findings on MRI. Currently no focal neurologic deficits on exam. -Trend troponins, EKG, and continuous cardiac telemetry. (2) Diabetes mellitus ICD Codes: E11.9 - Type 2 diabetes mellitus without complications Status: Chronic Plan: Patient taking 80 units of Lantus in the morning, 70 units at bedtime. The glucose on admission was 271. We'll give 30 units of levemir at bedtime, and start medium dose sliding scale with Humalog. The patient is NPO until she passes her swallow eval, at that point we may restart her home insulin. (3) Coronary artery disease ICD Codes: I25.10 - Atherosclerosis of coronary artery Status: Chronic Plan: Continue with Xarelto for PE tx and px. Would get CTA if any significant change in respiratory status or hemodynamics. (4) Hypertension ICD Codes: I10 - Essential (primary) hypertension Status: Chronic Plan: Hold home lisinopril, amlodipine. Enalapril 1.25 mg IV if BP > 220 systolic (5) Hyperlipidemia ICD Codes: E78.5 - Hyperlipidemia, unspecified Status: Chronic (6) Anxiety and depression ICD Codes: F41.8 - Mixed anxiety depressive disorder Status: Chronic Plan: Continue home fluoxetine 40 mg daily. (7) COPD (chronic obstructive pulmonary disease) ICD Codes: J44.9 - Chronic obstructive pulmonary disease Status: Chronic Plan: Continue with DuoNeb's every 4 hours, albuterol nebulizers every 2 hours when necessary shortness of breath. Diffuse crackles on exam. Satting at 92% on 3 L. This is her baseline. May need BiPAP if having respiratory distress. Chest x-ray showed no acute infiltrates. Prednisone 40 mg po Daily. (8) H/O cervical spinal arthrodesis ICD Codes: Z98.1 - Arthrodesis status Status: Acute Plan: Continue with home pain medications. (9) General weakness ICD Codes: R53.1 - Weakness Status: Acute Plan: Suspect possible TIA versus CVA. More likely however, is orthostatic hypotension. Patient may benefit from [facility]p facility. (10) Fluids, Electrolytes, and Nutrition Status: Acute Plan: Fluids: Normal saline at 75 ML's per hour. Diet: Nothing by mouth until swallow eval DVT prophylaxis: We'll hold Xarelto, as well as other pharmacologic prophylaxis , given possibility of brain bleed. Pain control: As above GI prophylaxis: Continue home nexium wdw Dr. Wilburn. Physician Certification 2 Midnight Certification Type: Admission for Inpatient Services Order for Inpatient Services The services are ordered in accordance with Medicare regulations or non- Medicare payer requirements, as applicable. In the case of services not specified as inpatient-only, they are appropriately provided as inpatient services in accordance with the 2-midnight benchmark. Estimated LOS (days): 3 3 days is the estimated time the patient will need to remain in the hospital, assuming treatment plan goals are met and no additional complications. Post-Hospital Plan: Not yet determined Suleiman Aguilar MD, R3 Mar 02, 2017 17:10
[2017-03-02] MEDS: SODIUM CHLOR 0.45% 1000 ML INJ 1,000 ML IV SCH (17:13)
[2017-03-02] MEDS ORDERED: DEXTROSE 50% IN WATER 50 ML VIAL(D50) IV PUSH PRN (17:15)
[2017-03-02] MEDS ORDERED: ENALAPRILAT 1.25 MG/ML VIAL IV PRN (17:15)
[2017-03-02] MEDS ORDERED: MAGNESIUM HYDROXIDE SUSP 30 ML CUP PO PRN (17:15)
[2017-03-02] MEDS ORDERED: BISACODYL 10 MG SUPP RECTAL PRN (17:15)
[2017-03-02] MEDS ORDERED: LACTULOSE SYRUP 20 GM/30 ML CUP PO PRN (17:15)
[2017-03-02] MEDS ORDERED: SENNOSIDES 8.6 MG TAB PO PRN (17:15)
[2017-03-02] MEDS ORDERED: GLUCAGON 1 MG/ML VIAL OTHER PRN ×2 (17:15→17:30)
[2017-03-02] MEDS ORDERED: NALOXONE HCL 0.4 MG/ML AMP IV PRN (17:15)
[2017-03-02] MEDS ORDERED: DEXTROSE 50% IN WATER 50 ML VIAL(D50) IV PRN (17:30)
[2017-03-02] MEDS ORDERED: ACETAMINOPHEN/HYDROcodone 325 MG/5 MG TAB PO PRN (17:45)
[2017-03-02] MEDS ORDERED: NITROGLYCERIN 2% OINT 1 GM PACKET TOPICAL PRN (17:45)
[2017-03-02] MEDS ORDERED: RESP: ALBUTEROL 2.5 MG/3 ML NEB (PRN) INH (18:00)
--- NOTE | 2017-03-02 18:29 | RADRPT ---
EXAM DATE/TIME: 03/02/2017 17:31 [facility] COMPARISON: No previous studies available for comparison. INDICATIONS : Cerebrovascular accident. MEDICAL HISTORY : Hypercholesterolemia. Gastroesophageal reflux disease. Chronic obstructive pulmonary disease. Congest ly heart failure. Myocardial infarction. Coronary artery disease. Hypertension. Asthma. Carcino ma, ovarian. Ovarian cysts. Renal failure. Kidney stones. Arthritis. Diabetes. Fibromyalgia. C hemotherapy. SURGICAL HISTORY : Tonsillectomy. Appendectomy. Cholecystectomy. ACDF. Coronary stent. Cardiac catheterization. Hyste rectomy. section. ENCOUNTER: Initial ACUITY: 1 day PAIN SCORE: 4/10 LOCATION: Bilateral neck PEAK SYSTOLIC VELOCITIES (cm/sec): ICA/CCA RATIO: Right: 0.9 Left: 0.9 ICA: Right: 88.7 Left: 79.0 CCA: Right: 94.3 Left: 88.6 ECA: Right: 149.3 Left: 127.9 VERTEBRAL: Right: 56.4 antegrade Left: 51.5 antegrade Elevated flow velocities and ICA/CCA ratios have been found to correlate with increased degrees of vessel stenosis, calculated as percentage of diameter relative to a normal segment of distal ICA/CCA FINDINGS: RIGHT CAROTID: There is mild plaque at the carotid bulb region. No significant stenosis is visualized. The waveform s are within normal limits. LEFT CAROTID: There is mild plaque at the carotid bulb region. No significant stenosis is visualized. The waveform s are within normal limits. VERTEBRAL ARTERIES: Antegrade flow is seen in both vertebral arteries. MISCELLANEOUS: None. CONCLUSION: Mild plaque at the carotid bulb regions without significant stenosis. Sam Blackwell MD on March 02, 2017 at 18:26 Board Certified Radiologist. This report was verified electronically.
[2017-03-02] MEDS: predniSONE 20 MG TAB PO SCH (18:50)
--- NOTE | 2017-03-02 19:43 | RADRPT ---
EXAM DATE/TIME: 03/02/2017 18:12 [facility] COMPARISON: CT BRAIN W/O CONTRAST, March 02, 2017, 15:03. INDICATIONS : CVA. MEDICAL HISTORY : Carcinoma, ovarian. Renal failure, acute. Diabetes. CHF. GERD. SURGICAL HISTORY : Cholecystectomy. Appendectomy. Hysterectomy. Port placement. ENCOUNTER: Subsequent ACUITY: 1 day PAIN SCORE: 3/10 LOCATION: cranial TECHNIQUE: Multiplanar, multisequence MRI of the brain was performed without contrast. FINDINGS: CEREBRUM: The ventricles are normal for age. No evidence of midline shift, mass lesion, hemorrhage or acute in farction. No extraaxial fluid collections are seen. The pituitary gland and suprasellar cistern are normal in configuration. WHITE MATTER: There is a small focal area of signal abnormality at the right frontal white matter and minimal signa l abnormality within the jael. POSTERIOR FOSSA: The cerebellum and brainstem are intact. The 4th ventricle is midline. The cerebellopontine angle is unremarkable. The cerebellar tonsils are normal in position. DIFFUSION IMAGING: No focal areas of restricted diffusion are seen. No evidence of acute infarction. EXTRACRANIAL: The visualized portions of the orbits and paranasal sinuses are unremarkable. CONCLUSION: 1. No definite acute abnormality is seen. 2. Small focal area of demyelination in the right frontal lobe and minimal change at the pontine whit e matter. Sam Blackwell MD on March 02, 2017 at 19:38 Board Certified Radiologist. This report was verified electronically.
[2017-03-02] MEDS: RESP: ALBUTEROL 2.5 MG/IPRATROPIUM 0.5 MG NEB (SCH) INH ×2 (20:20→23:57)
[2017-03-02] MEDS: SODIUM CHLORIDE 0.9% FLUSH 10 ML FLUSH IV FLUSH SCH (21:00)
[2017-03-02] MEDS ORDERED: INSULIN DETEMIR 100 UNITS/ML VIAL SQ SCH (21:00)
[2017-03-02] MEDS ORDERED: INSULIN ASPART SUPPLEMENTAL SCALE SQ SCH ×2 (21:00)
[2017-03-02] MEDS: DOCUSATE SODIUM 100 MG CAP PO SCH (21:06)
[2017-03-02] MEDS: CARVEDILOL 12.5 MG TAB PO SCH (21:06)
[2017-03-02] MEDS: DOCUSATE SODIUM 50 MG/SENNA 8.6 MG TAB PO SCH (21:07)
[2017-03-02] MEDS: LORazepam 0.5 MG TAB PO PRN (21:18)
[2017-03-02] MEDS: INSULIN ASPART SUPPLEMENTAL SCALE SQ SCH (21:18)
[2017-03-03] VITALS (10 sets, daily range): BP systolic 115–141; BP diastolic 59–64; PULSE 70–95; RESP 18–20; TEMP 97.8–99.2; O2SAT 95–97
[2017-03-03] MEDS: RESP: ALBUTEROL 2.5 MG/IPRATROPIUM 0.5 MG NEB (SCH) INH ×5 (03:45→20:18)
[2017-03-03 05:20] LABS: BASOPHIL % 0.2 % (0.0-2.0); EOSINOPHIL % 0.1 % (0.0-4.0); HEMATOCRIT 33.5 % (35.0-46.0); HEMO FLAGS DIFF FINAL; LYMPH % 7.3 % (9.0-44.0); LYMPHOCYTE # 0.6 TH/MM3 (1.0-4.8); MEAN CELL VOLUME 82.3 FL (80.0-100.0); MEAN CORPUSCULAR HEMOGLOBIN 27.6 PG (27.0-34.0); MEAN CORPUSCULAR HGB CONC 33.6 % (32.0-36.0); NEUT % 91.4 % (16.0-70.0); PLATELET COUNT 266 TH/MM3 (150-450); RED BLOOD COUNT 4.07 MIL/MM3 (4.00-5.30); RED CELL DISTRIBUTION WIDTH 13.9 % (11.6-17.2); WHITE BLOOD COUNT 8.7 TH/MM3 (4.0-11.0)
[2017-03-03 05:40] LABS: ALT (GPT) 13 U/L (10-53); ANION GAP 9 MEQ/L (5-15); AST (GOT) 8 U/L (15-37); BICARBONATE 28.3 MEQ/L (21.0-32.0); BLOOD UREA NITROGEN 24 MG/DL (7-18); CHLORIDE 99 MEQ/L (98-107); GLOMERULAR FILTRATION RATE 56 ML/MIN (>89); POTASSIUM 4.7 MEQ/L (3.5-5.1); SODIUM (NA) 136 MEQ/L (136-145)
[2017-03-03 05:43] LABS: ALKALINE PHOSPHATASE 138 U/L (45-117); HDL CHOLESTEROL 32.7 MG/DL (40.0-60.0); LDL CHOLESTEROL 107 MG/DL (0-99); TOTAL BILIRUBIN ADULT 0.3 MG/DL (0.2-1.0)
[2017-03-03] MEDS: SODIUM CHLOR 0.45% 1000 ML INJ 1,000 ML IV SCH ×2 (06:20→23:50)
[2017-03-03] MEDS: INSULIN ASPART SUPPLEMENTAL SCALE SQ SCH ×4 (07:26→21:48)
[2017-03-03] MEDS: DOCUSATE SODIUM 100 MG CAP PO SCH ×3 (08:44→21:50)
[2017-03-03] MEDS: FLUoxetine HCL 20 MG CAP PO SCH (08:45)
[2017-03-03] MEDS: PANTOPRAZOLE SOD 20 MG DELAYED RELEASE TAB PO SCH (08:45)
[2017-03-03] MEDS: ISOSORBIDE MONONITRATE 60 MG TAB PO SCH (08:46)
[2017-03-03] MEDS: FERROUS SULFATE 325 MG (65 MG ELEMENTAL IRON) TAB PO SCH (08:46)
[2017-03-03] MEDS: CARVEDILOL 12.5 MG TAB PO SCH ×2 (08:46→21:51)
[2017-03-03] MEDS: predniSONE 20 MG TAB PO SCH (08:46)
[2017-03-03] MEDS: RIVAROXABAN 20 MG TAB PO SCH (08:46)
[2017-03-03] MEDS: SODIUM CHLORIDE 0.9% FLUSH 10 ML FLUSH IV FLUSH SCH ×2 (08:47→21:00)
[2017-03-03] MEDS: DOCUSATE SODIUM 50 MG/SENNA 8.6 MG TAB PO SCH ×2 (08:48→21:00)
[2017-03-03] MEDS ORDERED: INFLUENZA VIRUS VACCINE (QUADRIVALENT) 0.5 ML SYR IM ONE (10:00)
[2017-03-03] MEDS ORDERED: PNEUMOCOCCAL POLYVALENT INJ 25 MCG/0.5 ML SYR IM ONE (10:00)
[2017-03-03] MEDS: INSULIN DETEMIR 100 UNITS/ML VIAL SQ SCH ×2 (10:36→21:49)
[2017-03-03 12:04] LABS: HEMOGLOBIN A1a 0.9 %; HEMOGLOBIN A1b 2.1 %; HEMOGLOBIN Ao 80.5 %; HEMOGLOBIN LA1C 3.5 %; HEMOGLOBIN P3 5.1 %
--- NOTE | 2017-03-03 12:05 | HHI.FPPN ---
Subjective Remarks Patient reports feeling better today, however still having significant right lower extremity weakness. She felt very unstable when walking with physical therapy. She could only walk several feet without becoming short of breath. She says she is still coughing up green sputum and requiring 3 L nasal cannula. He denies any new chest pain, abdominal pain, or any other symptoms. She has a son that lives at home with her, but may not be reliable to provide care on a / basis. (Suleiman Aguilar MD, R3) Objective Vitals Vital Signs Date Time Temp Pulse Resp B/P (MAP) Pulse Ox O2 Delivery O2 Flow Rate FiO2 03/03/17 08:44 98.0 79 18 138/59 (85) 95 123/60 (81) 129/59 (82) 03/03/17 07:54 96 Nasal Cannula 3.00 03/03/17 03:46 98.4 74 19 130/60 (83) 97 03/03/17 00:22 97.8 74 19 115/59 (77) 96 03/02/17 20:20 97 Nasal Cannula 3.00 03/02/17 19:49 97.6 78 18 132/62 (85) 95 03/02/17 19:14 80 03/02/17 17:37 03/02/17 17:02 71 24 131/62 (85) 80 24 131/62 (85) 79 32 106/53 (70) 03/02/17 16:53 96 Nasal Cannula 2.00 03/02/17 16:05 71 24 109/58 (75) 94 Nasal Cannula 3.00 03/02/17 14:05 69 16 122/57 (78) 95 Nasal Cannula 3.00 03/02/17 13:16 69 25 121/66 (84) 94 Nasal Cannula 3.00 03/02/17 13:07 98.3 82 16 121/66 (84) 94 I/O 03/02/17 03/02/17 03/02/17 03/03/17 03/03/17 03/03/17 07:00 15:00 23:00 07:00 15:00 23:00 Intake Total 200 ml 300 ml Balance 200 ml 300 ml Intake Oral 200 ml 300 ml (Suleiman Aguilar MD, R3) Result Diagram: 03/03/1743603/03/17436 Objective Remarks GEN: NAD HEENT: EOMI PERRL CV: RRR, faint heart sounds RESP: Diffuse crackles throughout, poor aeration to all lobes. (Suleiman Aguilar MD, R3) A/P Assessment and Plan Patient is a 66-year-old female with past medical history significant for cervical spine fusion, pulmonary embolism in 11/2016, coronary artery disease, COPD, hypertension, and diabetes mellitus, presenting with increasing weakness and falls. (Suleiman Aguilar MD, R3) Attending Attestation Patient interviewed and examined with Dr Myles Aguilar. Case reviewed and discussed with the resident . Agree with plan of care as discussed with me and documented in the resident note. (Bebeto Wilburn MD) Problem List: (1) Recurrent falls ICD Codes: R29.6 - Repeated falls Plan: Patient suffered fall on 02/23, most likely related to generalized debility, worsening COPD, CHF, and muscle loss. CT scan of head done in the emergency department showed no acute intracranial processes. MRI showing no acute changes. Vital signs at goal for her age. UA was within normal limits, troponins x 3 were less than 0.02. Satting at 93% on 3 L nasal cannula. Chest x-ray showing no infiltrates. Orthostatic vital signs no significant decrease in BP or increase of pulse. Carotid ultrasound no clinically significant stenosis. PLAN: Patient will need significant PT and OT rehabilitation prior to going back home. She is a significant fall risk given increased weakness and multiple co morbidities. (2) Diabetes mellitus ICD Codes: E11.9 - Type 2 diabetes mellitus without complications Status: Chronic Plan: Patient taking 80 units of Lantus in the morning, 70 units at bedtime. The glucose on admission was 271. We'll give 30 units of levemir BID, and start medium dose sliding scale with Humalog. The patient is NPO until she passes her swallow eval, at that point we may restart her home insulin. (3) Coronary artery disease ICD Codes: I25.10 - Atherosclerosis of coronary artery Status: Chronic Plan: Continue with Xarelto for PE tx and px. Would get CTA if any significant change in respiratory status or hemodynamics. (4) Hypertension ICD Codes: I10 - Essential (primary) hypertension Status: Chronic Plan: Hold home lisinopril, amlodipine. Enalapril 1.25 mg IV if BP > 220 systolic (5) Hyperlipidemia ICD Codes: E78.5 - Hyperlipidemia, unspecified Status: Chronic (6) Anxiety and depression ICD Codes: F41.8 - Mixed anxiety depressive disorder Status: Chronic Plan: Continue home fluoxetine 40 mg daily. (7) COPD (chronic obstructive pulmonary disease) ICD Codes: J44.9 - Chronic obstructive pulmonary disease Status: Chronic Plan: Continue with DuoNeb's every 4 hours, albuterol nebulizers every 2 hours when necessary shortness of breath. Diffuse crackles on exam. Satting at 92% on 3 L. This is her baseline. May need BiPAP if having respiratory distress. Chest x-ray showed no acute infiltrates. Prednisone 40 mg po Daily. (8) H/O cervical spinal arthrodesis ICD Codes: Z98.1 - Arthrodesis status Status: Acute Plan: Continue with home pain medications. (9) General weakness ICD Codes: R53.1 - Weakness Status: Acute Plan: Patient may benefit from group home facility. (10) Fluids, Electrolytes, and Nutrition Status: Acute Plan: Fluids: Normal saline at 75 ML's per hour. Diet: Heart healthy DVT prophylaxis: We'll hold Xarelto, as well as other pharmacologic prophylaxis , given possibility of brain bleed. Pain control: As above GI prophylaxis: Continue home nexium wdw Dr. Wilburn. (Suleiman Aguilar MD, R3) Suleiman Aguilar MD, R3 Mar 03, 2017 12:05 Bebeto Wilburn MD Mar 03, 2017 19:44
[2017-03-03] MEDS: LORazepam 0.5 MG TAB PO PRN ×2 (12:13→20:11)
[2017-03-03] MEDS: BENZONATATE 100 MG CAP PO PRN ×2 (12:52→20:11)
--- NOTE | 2017-03-03 13:13 | EKG ---
Date Performed: 03/02/2017 Time Performed: 13:18:14 PTAGE: 66 years EKG: Sinus rhythm LOW QRS VOLTAGE IN PRECORDIAL LEADS BORDERLINE ECG Compared to prior tracing no significant change DOCTOR: Radha Perdomo Interpretating Date/Time 03/03/2017 13:12:03
--- NOTE | 2017-03-03 13:13 | EKG ---
Date Performed: 03/02/2017 Time Performed: 19:28:22 PTAGE: 66 years EKG: Sinus rhythm LOW QRS VOLTAGE IN PRECORDIAL LEADS MINIMAL ST DEPRESSION BORDERLINE ECG PREVIOUS TRACING : 03/02/2017 13.18 Compared to prior tracing no significant change DOCTOR: Radha Perdomo Interpretating Date/Time 03/03/2017 13:12:13
--- NOTE | 2017-03-03 15:09 | EKG ---
Date Performed: 03/02/2017 Time Performed: 23:54:31 PTAGE: 66 years EKG: Sinus rhythm Nonspecific anterior T-wave changes PREVIOUS TRACING : 03/02/2017 19.28 Since the prior tracing, there has been no significan t serial change, when allowing for the artifact on the present tracing. DOCTOR: Radha Perdomo Interpretating Date/Time 03/03/2017 15:08:42
[2017-03-03] MEDS ORDERED: NALOXONE HCL 0.4 MG/ML AMP IV PRN (16:30)
[2017-03-03] MEDS: ACETAMINOPHEN/HYDROcodone 325 MG/5 MG TAB PO PRN (22:03)
[2017-03-04] VITALS (10 sets, daily range): BP systolic 129–159; BP diastolic 60–78; PULSE 64–95; RESP 17–20; TEMP 97.3–98; O2SAT 95–97
[2017-03-04] MEDS: RESP: ALBUTEROL 2.5 MG/IPRATROPIUM 0.5 MG NEB (SCH) INH ×6 (03:37→19:26)
[2017-03-04] MEDS: PANTOPRAZOLE SOD 20 MG DELAYED RELEASE TAB PO SCH (09:04)
[2017-03-04] MEDS: predniSONE 20 MG TAB PO SCH (09:04)
[2017-03-04] MEDS: CARVEDILOL 12.5 MG TAB PO SCH ×2 (09:04→23:23)
[2017-03-04] MEDS: ISOSORBIDE MONONITRATE 60 MG TAB PO SCH (09:05)
[2017-03-04] MEDS: FERROUS SULFATE 325 MG (65 MG ELEMENTAL IRON) TAB PO SCH (09:05)
[2017-03-04] MEDS: DOCUSATE SODIUM 50 MG/SENNA 8.6 MG TAB PO SCH ×2 (09:05→21:00)
[2017-03-04] MEDS: FLUoxetine HCL 20 MG CAP PO SCH (09:05)
[2017-03-04] MEDS: DOCUSATE SODIUM 100 MG CAP PO SCH ×2 (09:06→21:00)
[2017-03-04] MEDS: SODIUM CHLORIDE 0.9% FLUSH 10 ML FLUSH IV FLUSH SCH ×2 (09:06→23:23)
[2017-03-04] MEDS: SODIUM CHLOR 0.45% 1000 ML INJ 1,000 ML IV SCH ×2 (09:18→13:42)
[2017-03-04] MEDS: INSULIN ASPART SUPPLEMENTAL SCALE SQ SCH ×4 (09:23→23:59)
[2017-03-04] MEDS: RIVAROXABAN 20 MG TAB PO SCH (09:25)
[2017-03-04] MEDS: INSULIN DETEMIR 100 UNITS/ML VIAL SQ SCH ×2 (09:25→23:28)
--- NOTE | 2017-03-04 09:34 | HHI.FPPN ---
Subjective Remarks Patient not feeling well this morning. She reports that she feels "cold" and cannot specify where her discomfort is coming from. She says that she feels tired. Denies any new worsening SOB, CP, abdominal pain, nausea, vomiting, or other. VSS and at goal. (Suleiman Aguilar MD, R3) Objective Vitals Vital Signs Date Time Temp Pulse Resp B/P (MAP) Pulse Ox O2 Delivery O2 Flow Rate FiO2 03/04/17 08:09 96 Nasal Cannula 3.00 03/04/17 08:03 97.3 72 18 139/73 (95) 95 03/04/17 05:18 97.8 68 18 131/78 (95) 97 03/03/17 23:54 72 03/03/17 23:04 18 03/03/17 20:59 98.4 94 18 141/63 (89) 96 03/03/17 20:19 97 Nasal Cannula 3.00 03/03/17 16:23 99.2 95 20 140/64 (89) 96 03/03/17 14:00 87 I/O 03/03/17 03/03/17 03/03/17 03/04/17 03/04/17 03/04/17 07:00 15:00 23:00 07:00 15:00 23:00 Intake Total 300 ml 1935 ml 240 ml Output Total 1 ml Balance 300 ml -1 ml 1935 ml 240 ml Intake Oral 300 ml 1155 ml 240 ml IV Total 780 ml Output Stool Total 1 ml # Voids 3 1 # Bowel Movements 1 (Suleiman Aguilar MD, R3) Result Diagram: 03/03/1743603/03/17436 Imaging Last [address] 03/02/171315 Signed Impressions: Service Date/Time: Thursday, March 02, 2017 15:03 - CONCLUSION: 1. No evidence of acute intracranial pathology. No masses are identified. Kostas Perez MD Chest X-Ray 03/02/171315 Signed Impressions: Service Date/Time: Thursday, March 02, 2017 13:20 - CONCLUSION: Hypoinflation without acute infiltrate. Garrett Melara Jr., MD Cervical Spine CT 03/02/171315 Signed Impressions: Service Date/Time: Thursday, March 02, 2017 15:12 - CONCLUSION: 1. No fracture or dislocation. 2. Fusion from C3-C6. 3. Multilevel neural foraminal narrowing. Garrett Melara Jr., MD Carotid Artery Ultrasound 03/02/17 0000 Signed Impressions: Service Date/Time: Thursday, March 02, 2017 17:31 - CONCLUSION: Mild plaque at the carotid bulb regions without significant stenosis. Sam Blackwell MD Brain MRI 03/02/17 0000 Signed Impressions: Service Date/Time: Thursday, March 02, 2017 18:12 - CONCLUSION: 1. No definite acute abnormality is seen. 2. Small focal area of demyelination in the right frontal lobe and minimal change at the pontine white matter. Sam Blackwell MD Objective Remarks GEN: NAD HEENT: EOMI PERRL CV: RRR, faint heart sounds RESP: Diffuse crackles throughout, Better aeration to right upper lung harden. (Suleiman Aguilar MD, R3) A/P Assessment and Plan Patient is a 66-year-old female with past medical history significant for cervical spine fusion, pulmonary embolism in 11/2016, coronary artery disease, COPD, hypertension, and diabetes mellitus, presenting with increasing weakness and falls. (Suleiman Aguilar MD, R3) Attending Attestation Patient seen and examined. Case reviewed and discussed with the resident DR Myles Aguilar. Agree with plan of care as discussed with me and documented in the resident note. (Bebeto Wilburn MD) Problem List: (1) Recurrent falls ICD Codes: R29.6 - Repeated falls Plan: Patient suffered fall on 02/23, most likely related to generalized debility, worsening COPD, CHF, and muscle loss. CT scan of head done in the emergency department showed no acute intracranial processes. MRI showing no acute changes. Vital signs at goal for her age. UA was within normal limits, troponins x 3 were less than 0.02. Satting at 93% on 3 L nasal cannula. Chest x-ray showing no infiltrates. Orthostatic vital signs no significant decrease in BP or increase of pulse. Carotid ultrasound no clinically significant stenosis. PLAN: Patient will need significant PT and OT rehabilitation prior to going back home. She is a significant fall risk given increased weakness and multiple co morbidities. (2) Diabetes mellitus ICD Codes: E11.9 - Type 2 diabetes mellitus without complications Status: Chronic Plan: Glucose better controlled: 155 this AM from 333 yesterday. Continue with 30 units of levemir BID, and continue medium dose sliding scale with Humalog. Patient taking 80 units of Lantus in the morning, 70 units at bedtime. (3) Coronary artery disease ICD Codes: I25.10 - Atherosclerosis of coronary artery Status: Chronic Plan: Continue with Xarelto for PE tx and px. Would get CTA if any significant change in respiratory status or hemodynamics. (4) Hypertension ICD Codes: I10 - Essential (primary) hypertension Status: Chronic Plan: Hold home amlodipine. Restart lisinopril at lower dose 10 mg daily. (5) Hyperlipidemia ICD Codes: E78.5 - Hyperlipidemia, unspecified Status: Chronic Plan: Not on statin therapy. We readdress with patient. (6) Anxiety and depression ICD Codes: F41.8 - Mixed anxiety depressive disorder Status: Chronic Plan: Continue home fluoxetine 40 mg daily. (7) COPD (chronic obstructive pulmonary disease) ICD Codes: J44.9 - Chronic obstructive pulmonary disease Status: Chronic Plan: Continue with DuoNeb's every 4 hours, albuterol nebulizers every 2 hours when necessary shortness of breath. Diffuse crackles on exam. Satting at 92% on 3 L. This is her baseline. May need BiPAP if having respiratory distress. Chest x-ray showed no acute infiltrates. Decrease prednisone from 40 mg po to 30 mg PO daily. (8) H/O cervical spinal arthrodesis ICD Codes: Z98.1 - Arthrodesis status Status: Acute Plan: Continue with home pain medications. (9) General weakness ICD Codes: R53.1 - Weakness Status: Acute Plan: Patient may benefit from [facility] facility. (10) Fluids, Electrolytes, and Nutrition Status: Acute Plan: Fluids: Normal saline at 75 ML's per hour. Diet: Heart healthy DVT prophylaxis: On Xarelto. Pain control: As above GI prophylaxis: Continue home nexium wdw Dr. Wilburn. (Suleiman Aguilar MD, R3) Suleiman Aguilar MD, R3 Mar 04, 2017 09:34 Bebeto Wilburn MD Mar 04, 2017 15:11
[2017-03-04] MEDS: BENZONATATE 100 MG CAP PO PRN (11:23)
[2017-03-04] MEDS: LISINOPRIL 10 MG TAB PO SCH (11:24)
[2017-03-04 12:04] LABS: BASOPHIL % 0.5 % (0.0-2.0); EOSINOPHIL # 0.3 TH/MM3 (0-0.4); EOSINOPHIL % 3.3 % (0.0-4.0); HEMO FLAGS DIFF FINAL; LYMPH % 13.7 % (9.0-44.0); LYMPHOCYTE # 1.4 TH/MM3 (1.0-4.8); MEAN CELL VOLUME 83.6 FL (80.0-100.0); MEAN CORPUSCULAR HEMOGLOBIN 26.8 PG (27.0-34.0); MEAN CORPUSCULAR HGB CONC 32.1 % (32.0-36.0); NEUT % 77.5 % (16.0-70.0); PLATELET COUNT 284 TH/MM3 (150-450); RED BLOOD COUNT 4.18 MIL/MM3 (4.00-5.30); RED CELL DISTRIBUTION WIDTH 14.4 % (11.6-17.2); WHITE BLOOD COUNT 10.4 TH/MM3 (4.0-11.0)
[2017-03-04 12:27] LABS: ALT (GPT) 14 U/L (10-53); ANION GAP 7 MEQ/L (5-15); AST (GOT) 8 U/L (15-37); BLOOD UREA NITROGEN 19 MG/DL (7-18); CHLORIDE 102 MEQ/L (98-107); GLOMERULAR FILTRATION RATE 61 ML/MIN (>89); POTASSIUM 4.2 MEQ/L (3.5-5.1); SODIUM (NA) 139 MEQ/L (136-145)
[2017-03-04 12:29] LABS: ALKALINE PHOSPHATASE 118 U/L (45-117); TOTAL BILIRUBIN ADULT 0.2 MG/DL (0.2-1.0)
[2017-03-04] MEDS: LORazepam 0.5 MG TAB PO PRN (13:57)
[2017-03-05] VITALS (10 sets, daily range): BP systolic 140–182; BP diastolic 68–76; PULSE 64–81; RESP 17–21; TEMP 96.8–97.8; O2SAT 94–98
[2017-03-05] MEDS: RESP: ALBUTEROL 2.5 MG/IPRATROPIUM 0.5 MG NEB (SCH) INH ×7 (04:18→23:30)
[2017-03-05] MEDS: SODIUM CHLOR 0.45% 1000 ML INJ 1,000 ML IV SCH (05:11)
[2017-03-05] MEDS: BENZONATATE 100 MG CAP PO PRN ×2 (06:17→22:02)
[2017-03-05] MEDS: INSULIN ASPART SUPPLEMENTAL SCALE SQ SCH ×4 (07:56→22:11)
[2017-03-05] MEDS: predniSONE 10 MG TAB PO SCH (08:48)
[2017-03-05] MEDS: FERROUS SULFATE 325 MG (65 MG ELEMENTAL IRON) TAB PO SCH (08:48)
[2017-03-05] MEDS: DOCUSATE SODIUM 100 MG CAP PO SCH ×2 (08:48→22:03)
[2017-03-05] MEDS: FLUoxetine HCL 20 MG CAP PO SCH (08:49)
[2017-03-05] MEDS: LISINOPRIL 10 MG TAB PO SCH (08:49)
[2017-03-05] MEDS: CARVEDILOL 12.5 MG TAB PO SCH ×2 (08:49→22:02)
[2017-03-05] MEDS: PANTOPRAZOLE SOD 20 MG DELAYED RELEASE TAB PO SCH (08:49)
[2017-03-05] MEDS: SODIUM CHLORIDE 0.9% FLUSH 10 ML FLUSH IV FLUSH SCH ×2 (08:49→22:07)
[2017-03-05] MEDS: DOCUSATE SODIUM 50 MG/SENNA 8.6 MG TAB PO SCH ×2 (08:51→21:00)
[2017-03-05] MEDS: LORazepam 0.5 MG TAB PO PRN (08:58)
[2017-03-05] MEDS: INSULIN DETEMIR 100 UNITS/ML VIAL SQ SCH ×2 (09:01→22:12)
[2017-03-05] MEDS: ISOSORBIDE MONONITRATE 60 MG TAB PO SCH (09:07)
[2017-03-05] MEDS: RIVAROXABAN 20 MG TAB PO SCH (09:08)
[2017-03-05] MEDS ORDERED: LEVEMIR SQ (09:15)
[2017-03-05] MEDS ORDERED: NOVOLOGSS SQ (09:15)
--- NOTE | 2017-03-05 09:16 | HHI.DCPOC ---
Discharge Care Plan Diagnosis: (1) Diabetes mellitus (2) Coronary artery disease (3) Hypertension (4) PE (pulmonary thromboembolism) (5) Sepsis (6) COPD (chronic obstructive pulmonary disease) Goals to Promote Your Health * To prevent worsening of your condition and complications * To maintain your health at the optimal level Directions to Meet Your Goals Take your medications as prescribed Follow your dietary instruction Follow activity as directed Keep your appointments as scheduled Take your immunizations and boosters as scheduled If your symptoms worsen call your PCP, if no PCP go to Urgent Care Center or Emergency Room Smoking is Dangerous to Your Health. Avoid second hand smoke Call the 24-hour hour crisis hotline for domestic abuse at Suleiman Aguilar MD, R3 Mar 05, 2017 09:16
[2017-03-05] MEDS ORDERED: NORC5TAB PO (09:19)
--- NOTE | 2017-03-05 09:27 | HHI.FPPN ---
Subjective Remarks Doing well this morning. Breathing is improved with breathing treatments. Had a coughing fit this morning. Strength in right leg is improving. Asking to go to SNF in patient rehab for strength, gait training. This was also recommended by PT. Spoke with CM can go to SNF with hospice. Requesting [facility]. (Suleiman Aguilar MD, R3) Objective Vitals Vital Signs Date Time Temp Pulse Resp B/P (MAP) Pulse Ox O2 Delivery O2 Flow Rate FiO2 03/05/17 07:55 96 Nasal Cannula 3.00 03/05/17 07:15 97.1 76 17 141/71 (94) 96 03/05/17 05:39 68 03/05/17 05:00 97.0 74 20 148/68 (94) 96 03/05/17 00:32 67 03/04/17 20:39 98.0 95 17 159/77 (104) 96 03/04/17 20:38 83 03/04/17 19:26 97 Nasal Cannula 3.00 03/04/17 17:04 70 03/04/17 15:11 97.8 90 20 141/69 (93) 97 03/04/17 11:52 97.5 72 20 129/60 (83) 95 I/O 03/04/17 03/04/17 03/04/17 03/05/17 03/05/17 03/05/17 07:00 15:00 23:00 07:00 15:00 23:00 Intake Total 240 ml Balance 240 ml Intake Oral 240 ml # Voids 1 (Suleiman Aguilar MD, R3) Result Diagram: 03/04/17 1128 03/04/17 1128 Objective Remarks GEN: NAD HEENT: EOMI PERRL CV: RRR, faint heart sounds RESP: Diffuse crackles throughout, Better aeration to right upper lung harden. (Suleiman Aguilar MD, R3) A/P Assessment and Plan Patient is a 66-year-old female with past medical history significant for cervical spine fusion, pulmonary embolism in 11/2016, coronary artery disease, COPD, hypertension, and diabetes mellitus, presenting with increasing weakness and falls. (Suleiman Aguilar MD, R3) Attending Attestation Medical rounds performed with Dr Aguilar this am, Patient interviewed and examined, Agree with Assessment and Plan, Contents of note reviewed, See Orders. (Bebeto Wilburn MD) Problem List: (1) Recurrent falls ICD Codes: R29.6 - Repeated falls Plan: Patient suffered fall on 02/23, most likely related to generalized debility, worsening COPD, CHF, and muscle loss. CT scan of head done in the emergency department showed no acute intracranial processes. MRI showing no acute changes. Vital signs at goal for her age. UA was within normal limits, troponins x 3 were less than 0.02. Satting at 93% on 3 L nasal cannula. Chest x-ray showing no infiltrates. Orthostatic vital signs no significant decrease in BP or increase of pulse. Carotid ultrasound no clinically significant stenosis. PLAN: Patient will need significant PT and OT rehabilitation prior to going back home. She is a significant fall risk given increased weakness and multiple co morbidities. (2) Diabetes mellitus ICD Codes: E11.9 - Type 2 diabetes mellitus without complications Status: Chronic Plan: Glucose better controlled: 159 this AM from 333 yesterday. Continue with 30 units of levemir BID, and continue medium dose sliding scale with Humalog. Patient taking 80 units of Lantus in the morning, 70 units at bedtime at home. (3) Coronary artery disease ICD Codes: I25.10 - Atherosclerosis of coronary artery Status: Chronic Plan: Continue with Xarelto for PE tx and px. Would get CTA if any significant change in respiratory status or hemodynamics. (4) Hypertension ICD Codes: I10 - Essential (primary) hypertension Status: Chronic Plan: Hold home amlodipine. May be contributing to hypotension and weakness. Restart lisinopril at lower dose 10 mg daily. (5) Hyperlipidemia ICD Codes: E78.5 - Hyperlipidemia, unspecified Status: Chronic Plan: Not on statin therapy. We readdress with patient. (6) Anxiety and depression ICD Codes: F41.8 - Mixed anxiety depressive disorder Status: Chronic Plan: Continue home fluoxetine 40 mg daily. (7) COPD (chronic obstructive pulmonary disease) ICD Codes: J44.9 - Chronic obstructive pulmonary disease Status: Chronic Plan: Continue with DuoNeb's every 4 hours, albuterol nebulizers every 2 hours when necessary shortness of breath. Diffuse crackles on exam. Satting at 92% on 3 L. This is her baseline. May need BiPAP if having respiratory distress. Chest x-ray showed no acute infiltrates. Decrease prednisone from 40 mg po to 30 mg PO daily. (8) H/O cervical spinal arthrodesis ICD Codes: Z98.1 - Arthrodesis status Status: Acute Plan: Continue with home pain medications. (9) General weakness ICD Codes: R53.1 - Weakness Status: Acute Plan: Patient may benefit from custodial facility. (10) Fluids, Electrolytes, and Nutrition Status: Acute Plan: Fluids: PO Diet: Heart healthy DVT prophylaxis: On Xarelto. Pain control: As above GI prophylaxis: Continue home nexium sdw Dr. Wilburn. (Suleiman Aguilar MD, R3) Suleiman Aguilar MD, R3 Mar 05, 2017 09:27 Bebeto Wilburn MD Mar 05, 2017 11:35
--- NOTE | 2017-03-05 09:37 | HHI.DS ---
Discharge Summary Admission Date Mar 02, 2017 at 16:17 Admitting Diagnosis dizziness, generalized weakness, mild renal insufficiency (1) Recurrent falls Plan: Patient suffered fall on 02/23, most likely related to generalized debility, worsening COPD, CHF, and muscle loss. CT scan of head done in the emergency department showed no acute intracranial processes. MRI showing no acute changes. Vital signs at goal for her age. UA was within normal limits, troponins x 3 were less than 0.02. Satting at 93% on 3 L nasal cannula. Chest x-ray showing no infiltrates. Orthostatic vital signs no significant decrease in BP or increase of pulse. Carotid ultrasound no clinically significant stenosis. PLAN: Patient will need significant PT and OT rehabilitation prior to going back home. She is a significant fall risk given increased weakness and multiple co morbidities. ICD Codes: R29.6 - Repeated falls (2) Diabetes mellitus Plan: Glucose better controlled: 159 this AM from 333 yesterday. Continue with 30 units of levemir BID, and continue medium dose sliding scale with Humalog. Patient taking 80 units of Lantus in the morning, 70 units at bedtime at home. ICD Codes: E11.9 - Type 2 diabetes mellitus without complications Status: Chronic (3) Coronary artery disease Plan: Continue with Xarelto for PE tx and px. Would get CTA if any significant change in respiratory status or hemodynamics. ICD Codes: I25.10 - Atherosclerosis of coronary artery Status: Chronic (4) Hypertension Plan: Hold home amlodipine. May be contributing to hypotension and weakness. Restart lisinopril at lower dose 10 mg daily. ICD Codes: I10 - Essential (primary) hypertension Status: Chronic (5) Hyperlipidemia Plan: Not on statin therapy. We readdress with patient. ICD Codes: E78.5 - Hyperlipidemia, unspecified Status: Chronic (6) Anxiety and depression Plan: Continue home fluoxetine 40 mg daily. ICD Codes: F41.8 - Mixed anxiety depressive disorder Status: Chronic (7) COPD (chronic obstructive pulmonary disease) Plan: Continue with DuoNeb's every 4 hours, albuterol nebulizers every 2 hours when necessary shortness of breath. Diffuse crackles on exam. Satting at 92% on 3 L. This is her baseline. May need BiPAP if having respiratory distress. Chest x-ray showed no acute infiltrates. Decrease prednisone from 40 mg po to 30 mg PO daily. ICD Codes: J44.9 - Chronic obstructive pulmonary disease Status: Chronic (8) H/O cervical spinal arthrodesis Plan: Continue with home pain medications. ICD Codes: Z98.1 - Arthrodesis status Status: Acute (9) General weakness Plan: Patient may benefit from halfway facility. ICD Codes: R53.1 - Weakness Status: Acute (10) Fluids, Electrolytes, and Nutrition Plan: Fluids: PO Diet: Heart healthy DVT prophylaxis: On Xarelto. Pain control: As above GI prophylaxis: Continue home nexium sdw Dr. Wilburn. Status: Acute Brief History Mrs. Sewell is a 66-year-old female with a significant history of cervical spine fusion, pulmonary embolism in 11/2016, coronary artery disease, COPD, hypertension, and diabetes mellitus, presenting with increasing weakness and falls. History of present illness: The patient reports that approximately 2 days ago " I could not walk." A week prior to the difficulty with ambulation, she reports falling forward after getting out of a chair, and states that my "right leg didn 't work." She fell backwards, and hit her head on the windowsill. She denies any loss of consciousness, uncontrollable moving of her extremities, urinary incontinence, palpitations or chest pain prior to the episode, or new vertigo. Since this time, she has had a persistent headache, that is currently at 3 out of 10 in intensity and localized over the area of trauma. She has been taking her Xarelto every day, and has not missed a dose. She has been taking BC powder for her headaches twice a day, and this relieves the pain. She denies any acute changes in her vision. She also denies any new numbness or tingling on one side of her body. She has been taking nitroglycerin sublingual since falling for chest pain, that is not related to exertion. At her baseline she is able to walk only 5-10 feet without becoming short of breath. This has been gradually getting worse over the past several weeks. She says that she is still spitting up green mucus, and says that "I feel my lungs filling up." She reports completing 3 rounds of antibiotics for community-acquired pneumonia recently. She denies any new swelling in her lower extremities or in her abdomen. She does endorse shortness of breath when laying flat, and orthopnea, that is at her baseline. Review of systems: Denies any nausea, vomiting, increasing shortness breath, fevers, chills, dysuria, or blood in her stools. CBC/BMP: 03/04/17 1128 03/04/17 1128 Significant Findings Laboratory Tests Test 03/02/17 13:23 03/02/17 13:50 03/02/17 14:20 03/02/17 19:53 Hemoglobin 11.2 GM/DL (11.6-15.3) Hematocrit 33.7 % (35.0-46.0) Neutrophils (%) (Auto) 70.3 % (16.0-70.0) Eosinophils (%) (Auto) 4.8 % (0.0-4.0) Eosinophils # (Auto) 0.5 TH/MM3 (0-0.4) Prothrombin Time 13.5 SEC (9.8-11.6) Activated Partial Thromboplast Time 33.4 SEC (24.3-30.1) Blood Urea Nitrogen 29 MG/DL (7-18) Creatinine 1.46 MG/DL (0.50-1.00) Random Glucose 271 MG/DL (74-106) Albumin 3.1 GM/DL (3.4-5.0) Alkaline Phosphatase 135 U/L (45-117) Aspartate Amino Transf (AST/SGOT) 10 U/L (15-37) Sodium Level 135 MEQ/L (136-145) Chloride Level 97 MEQ/L (98-107) Estimat Glomerular Filtration Rate 36 ML/MIN (>89) Troponin I LESS THAN 0.02 NG/ML LESS THAN 0.02 NG/ML Arterial Blood pH 7.37 (7.380-7.420) Arterial Blood Partial Pressure CO2 47 mmHg (38-42) Blood Gas Hemoglobin 10.7 G/DL (12.0-16.0) Urine Turbidity HAZY (CLEAR) Urine Bacteria RARE /hpf (NONE) Urine Mucus FEW /lpf (OCC) Test 03/03/17 01:15 03/03/17 04:37 03/04/17 11:28 Troponin I LESS THAN 0.02 NG/ML Hemoglobin 11.2 GM/DL (11.6-15.3) 11.2 GM/DL (11.6-15.3) Hematocrit 33.5 % (35.0-46.0) Neutrophils (%) (Auto) 91.4 % (16.0-70.0) 77.5 % (16.0-70.0) Lymphocytes (%) (Auto) 7.3 % (9.0-44.0) Neutrophils # (Auto) 8.0 TH/MM3 (1.8-7.7) 8.0 TH/MM3 (1.8-7.7) Lymphocytes # (Auto) 0.6 TH/MM3 (1.0-4.8) Blood Urea Nitrogen 24 MG/DL (7-18) 19 MG/DL (7-18) Random Glucose 286 MG/DL (74-106) 255 MG/DL (74-106) Albumin 3.1 GM/DL (3.4-5.0) 3.1 GM/DL (3.4-5.0) Calcium Level 7.8 MG/DL (8.5-10.1) Alkaline Phosphatase 138 U/L (45-117) 118 U/L (45-117) Aspartate Amino Transf (AST/SGOT) 8 U/L (15-37) 8 U/L (15-37) Estimat Glomerular Filtration Rate 56 ML/MIN (>89) 61 ML/MIN (>89) Hemoglobin A1c 7.6 % (4.3-6.0) LDL Cholesterol 107 MG/DL (0-99) HDL Cholesterol 32.7 MG/DL (40.0-60.0) Mean Corpuscular Hemoglobin 26.8 PG (27.0-34.0) PE at Discharge GEN: NAD HEENT: EOMI PERRL CV: RRR, faint heart sounds RESP: Diffuse crackles throughout, Better aeration to right upper lung harden. Hospital Course Mrs. Sewell is an 66 y/o female with a PMH significant for community acquired pneumonia, advanced COPD, Pulmonary embolism in September of 2016 after cervical spine stenosis repair, T2DM that is poorly controlled, and currently on hospice care who presented with worsening weakness and inability to care for herself. An MRI showed no new infarcts, her BG was controlled with insulin, and physical therapy worked with her throughout her hospitalization. She was restarted on her Xarelto and her respiratory status was stable throughout her hospitalization. She was discharged to a SNF. I spoke with her son and he is aware of the plan of care. She was discharged home in stable condition. Pt Condition on Discharge: Guarded Discharge Disposition: Discharge to SNF Discharge Instructions DIET: Follow Instructions for: As Tolerated, No Restrictions Speech Therapy-Diet Recommends: Soft Activities you can perform: Weight Bearing as Anne-Marie Suleiman Aguilar MD, R3 Mar 05, 2017 09:37
[2017-03-05] MEDS: ACETAMINOPHEN/HYDROcodone 325 MG/5 MG TAB PO PRN ×2 (12:18→22:27)
[2017-03-05 13:32] LABS: AUTOMATED NEUTROPHIL # 10.2 TH/MM3 (1.8-7.7); BASOPHIL % 0.2 % (0.0-2.0); EOSINOPHIL % 0.3 % (0.0-4.0); HEMATOCRIT 34.1 % (35.0-46.0); HEMO FLAGS DIFF FINAL; LYMPH % 7.2 % (9.0-44.0); LYMPHOCYTE # 0.8 TH/MM3 (1.0-4.8); MEAN CELL VOLUME 83.9 FL (80.0-100.0); MEAN CORPUSCULAR HGB CONC 32.2 % (32.0-36.0); MONO % 2.5 % (0.0-8.0); NEUT % 89.8 % (16.0-70.0); PLATELET COUNT 292 TH/MM3 (150-450); RED BLOOD COUNT 4.06 MIL/MM3 (4.00-5.30); RED CELL DISTRIBUTION WIDTH 14.4 % (11.6-17.2); WHITE BLOOD COUNT 11.3 TH/MM3 (4.0-11.0)
[2017-03-05 13:52] LABS: BICARBONATE 29.8 MEQ/L (21.0-32.0); POTASSIUM 4.5 MEQ/L (3.5-5.1)
[2017-03-06] VITALS: BP 130/59; PULSE 68; RESP 20; TEMP 97.1; O2SAT 98
[2017-03-06 00:26] VITALS: PULSE 58
[2017-03-06] MEDS: RESP: ALBUTEROL 2.5 MG/IPRATROPIUM 0.5 MG NEB (SCH) INH ×3 (03:43→11:29)
[2017-03-06 04:00] VITALS: BP 149/69; PULSE 64; RESP 20; TEMP 97.1; O2SAT 100
[2017-03-06] MEDS: INSULIN ASPART SUPPLEMENTAL SCALE SQ SCH ×2 (05:57→13:27)
[2017-03-06] MEDS: ACETAMINOPHEN/HYDROcodone 325 MG/5 MG TAB PO PRN (06:03)
[2017-03-06 07:43] VITALS: O2SAT 95
--- NOTE | 2017-03-06 07:47 | HHI.FPPN ---
Subjective Remarks No acute changes. Awaiting placement in SNF. (Suleiman Aguilar MD, R3) Objective Vitals Vital Signs Date Time Temp Pulse Resp B/P (MAP) Pulse Ox O2 Delivery O2 Flow Rate FiO2 03/06/17 07:43 95 Nasal Cannula 3.00 03/06/17 04:00 97.1 64 20 149/69 (95) 100 03/06/17 00:26 58 03/06/17 00:00 97.1 68 20 130/59 (82) 98 03/05/17 23:27 18 03/05/17 20:19 64 03/05/17 20:00 96.8 81 21 182/76 (111) 94 03/05/17 19:34 96 Nasal Cannula 3.00 03/05/17 15:00 97.0 72 18 140/73 (95) 96 03/05/17 11:00 97.8 65 17 163/72 (102) 98 03/05/17 07:55 96 Nasal Cannula 3.00 I/O 03/05/17 03/05/17 03/05/17 03/06/17 03/06/17 03/06/17 06:59 14:59 22:59 06:59 14:59 22:59 Intake Total 740 ml 360 ml 240 ml Output Total 1 ml Balance 740 ml 360 ml 239 ml Intake Oral 740 ml 360 ml 240 ml Output Stool Total 1 ml # Voids 1 5 2 3 # Bowel Movements 0 1 (Suleiman Aguilar MD, R3) Result Diagram: 03/05/17 1235 03/05/17 1235 Objective Remarks GEN: NAD HEENT: EOMI PERRL CV: RRR, faint heart sounds RESP: Diffuse crackles throughout, Better aeration to right upper lung harden. (Suleiman Aguilar MD, R3) A/P Assessment and Plan Patient is a 66-year-old female with past medical history significant for cervical spine fusion, pulmonary embolism in 11/2016, coronary artery disease, COPD, hypertension, and diabetes mellitus, presenting with increasing weakness and falls. (Suleiman Aguilar MD, R3) Attending Attestation THIS CASE WAS DISCUSSED WITH THE RESIDENT DR Myles AGUILAR. I HAVE REVIEWED THE RECORD, SEEN AND INTERVIEWED PATIENT, AND AGREE WITH THE ABOVE NOTE AND PLAN OF CARE WAS DISCUSSED. I HAVE AUTHORIZED THE ORDERS.. (Bebeto Wilburn MD) Problem List: (1) Recurrent falls ICD Codes: R29.6 - Repeated falls Plan: Patient suffered fall on 02/23, most likely related to generalized debility, worsening COPD, CHF, and muscle loss. CT scan of head done in the emergency department showed no acute intracranial processes. MRI showing no acute changes. Vital signs at goal for her age. UA was within normal limits, troponins x 3 were less than 0.02. Satting at 93% on 3 L nasal cannula. Chest x-ray showing no infiltrates. Orthostatic vital signs no significant decrease in BP or increase of pulse. Carotid ultrasound no clinically significant stenosis. PLAN: Patient will need significant PT and OT rehabilitation prior to going back home. She is a significant fall risk given increased weakness and multiple co morbidities. (2) Diabetes mellitus ICD Codes: E11.9 - Type 2 diabetes mellitus without complications Status: Chronic Plan: Glucose better controlled. Continue with 30 units of levemir BID, and continue medium dose sliding scale with Humalog. Patient taking 80 units of Lantus in the morning, 70 units at bedtime at home. (3) Coronary artery disease ICD Codes: I25.10 - Atherosclerosis of coronary artery Status: Chronic Plan: Continue with Xarelto for PE tx and px. Would get CTA if any significant change in respiratory status or hemodynamics. (4) Hypertension ICD Codes: I10 - Essential (primary) hypertension Status: Chronic Plan: Hold home amlodipine. May be contributing to hypotension and weakness. Restart lisinopril at lower dose 10 mg daily. (5) Hyperlipidemia ICD Codes: E78.5 - Hyperlipidemia, unspecified Status: Chronic Plan: Not on statin therapy. We readdress with patient. (6) Anxiety and depression ICD Codes: F41.8 - Mixed anxiety depressive disorder Status: Chronic Plan: Continue home fluoxetine 40 mg daily. (7) COPD (chronic obstructive pulmonary disease) ICD Codes: J44.9 - Chronic obstructive pulmonary disease Status: Chronic Plan: Continue with DuoNeb's every 4 hours, albuterol nebulizers every 2 hours when necessary shortness of breath. Diffuse crackles on exam. Satting at 92% on 3 L. This is her baseline. May need BiPAP if having respiratory distress. Chest x-ray showed no acute infiltrates. Decrease prednisone from 40 mg po to 30 mg PO daily. (8) H/O cervical spinal arthrodesis ICD Codes: Z98.1 - Arthrodesis status Status: Acute Plan: Continue with home pain medications. (9) General weakness ICD Codes: R53.1 - Weakness Status: Acute Plan: Patient may benefit from halfway facility. (10) Fluids, Electrolytes, and Nutrition Status: Acute Plan: Fluids: PO Diet: Heart healthy DVT prophylaxis: On Xarelto. Pain control: As above GI prophylaxis: Continue home nexium sdw Dr. Wilburn. (Suleiman Aguilar MD, R3) Suleiman Aguilar MD, R3 Mar 06, 2017 07:46 Bebeto Wilburn MD Mar 06, 2017 15:50
[2017-03-06 08:00] VITALS: BP 170/74; PULSE 58; RESP 17; TEMP 97.6; O2SAT 98
[2017-03-06] MEDS: SODIUM CHLORIDE 0.9% FLUSH 10 ML FLUSH IV FLUSH SCH (09:00)
[2017-03-06] MEDS: RIVAROXABAN 20 MG TAB PO SCH (09:24)
[2017-03-06] MEDS: FLUoxetine HCL 20 MG CAP PO SCH (09:24)
[2017-03-06] MEDS: FERROUS SULFATE 325 MG (65 MG ELEMENTAL IRON) TAB PO SCH (09:24)
[2017-03-06] MEDS: ISOSORBIDE MONONITRATE 60 MG TAB PO SCH (09:24)
[2017-03-06] MEDS: LISINOPRIL 10 MG TAB PO SCH (09:24)
[2017-03-06] MEDS: CARVEDILOL 12.5 MG TAB PO SCH (09:24)
[2017-03-06] MEDS: predniSONE 10 MG TAB PO SCH (09:25)
[2017-03-06] MEDS: PANTOPRAZOLE SOD 20 MG DELAYED RELEASE TAB PO SCH (09:25)
[2017-03-06] MEDS: DOCUSATE SODIUM 100 MG CAP PO SCH (09:33)
[2017-03-06] MEDS: LORazepam 0.5 MG TAB PO PRN (09:33)
[2017-03-06] MEDS: DOCUSATE SODIUM 50 MG/SENNA 8.6 MG TAB PO SCH (09:33)
[2017-03-06] MEDS: INSULIN DETEMIR 100 UNITS/ML VIAL SQ SCH (09:37)
[2017-03-06 12:00] VITALS: BP 129/62; PULSE 61; RESP 17; TEMP 97.6; O2SAT 97
[2017-03-06] MEDS ORDERED: SUCRALFATE 1 GM TAB PO SCH (12:00)
[2017-03-24] MEDS ORDERED: NOVOLOGSS SQ (15:25)
== END 2017-03-06 16:20 | DRG 948 ==
LOC: NEPE 12:58 → NEDA 16:09 → OBSVTOIN 16:17 → NEPFCDU 17:30 → HOCA 03-05 04:18
PROVIDERS: ADMIT Family Medicine; ATTEND Family Medicine
DX: R53.1 Weakness (principal); I50.9 Heart failure, unspecified; J44.9 Chronic obstructive pulmonary disease, unspecified; I11.0 Hypertensive heart disease with heart failure; R42 Dizziness and giddiness; M19.90 Unspecified osteoarthritis, unspecified site; J45.909 Unspecified asthma, uncomplicated; F41.9 Anxiety disorder, unspecified; F32.9 Major depressive disorder, single episode, unspecified; I25.10 Atherosclerotic heart disease of native coronary artery without angina pectoris; K21.9 Gastro-esophageal reflux disease without esophagitis; M79.7 Fibromyalgia; E78.5 Hyperlipidemia, unspecified; E11.319 Type 2 diabetes mellitus with unspecified diabetic retinopathy without macular edema; Z66 Do not resuscitate; R29.6 Repeated falls; E11.65 Type 2 diabetes mellitus with hyperglycemia; N28.9 Disorder of kidney and ureter, unspecified; Z91.81 History of falling; Z98.1 Arthrodesis status; Z86.711 Personal history of pulmonary embolism; I25.2 Old myocardial infarction; Z85.43 Personal history of malignant neoplasm of ovary; Z95.5 Presence of coronary angioplasty implant and graft; Z79.4 Long term (current) use of insulin; Z23 Encounter for immunization; Z92.21 Personal history of antineoplastic chemotherapy; Z87.891 Personal history of nicotine dependence
CPT/HCPCS: 36600; 70450; 70551; 71010; 72125; 80048; 80053; 80061; 81001; 82010; 82272; 82550; 82805; 82948; 83036; 83735; 83880; 84484; 85025; 85610; 85730; 90732; 93005; 93880; 94640; 94664; 96360; 96361; 96372; G0378; G8987-GO; G8987-GP; G8988-GO; G8988-GP; G8996-GN; G8997-GN; G8998-GN; J1815; J7050; J7512